=== PATIENT | female | born 1945 | race Caucasian/White ===

== ENCOUNTER 2021-03-04 15:08 | Outpatient (CLI) | payer MEDICARE, SELFPAY ==
--- NOTE | ~2021-03-04 | XR_ITS ---
EXAMINATION: XR knee LT min 4V EXAM DATE: 03/04/2021 15:43 INDICATION: Pain, LT knee Medial soft tissue mass, osteoarthritis. TECHNIQUE: Left knee frontal, crosstable lateral, orthogonal oblique projections for interpretation. Comparison is made to prior examination from 09/16/2016. FINDINGS: No evidence osteochondral defect or joint body in the left knee joint. There is mild to m oderate primary osteoarthritis. There are no acute fractures or dislocations identified. There is no subcutaneous gas. There is small joint effusion. Medial thigh surgical clips could be saphenous v ein harvest. IMPRESSION: Mild to moderate left knee osteoarthritis. Small joint effusion. Reviewed, dictated and finalized at location A.
== END 2021-03-04 15:09 | disposition home or self-care (01) ==
LOC: ANHIMG 15:15
PROVIDERS: PCP Family Medicine Adolescent Medicine; Visit Provider Family Medicine Adolescent Medicine
DX: M17.12 Unilateral primary osteoarthritis, left knee (principal); M25.462 Effusion, left knee
CPT/HCPCS: 73564

== ENCOUNTER 2021-04-10 12:49 | Outpatient (CLI) | payer MEDICARE, SELFPAY ==
--- NOTE | ~2021-04-10 | MM_ITS ---
EXAMINATION: MM screening [facility] BI w lupilol HISTORY: Screening mammogram TECHNIQUE: Craniocaudal and mediolateral oblique 3-D tomosynthesis images were obtained and synthetic 2-D images were generated. CAD analysis was submitted and interpreted. COMPARISON: 12/21/2018, 09/17/2016, 07/04/2014 BREAST PARENCHYMAL COMPOSITION: There are scattered areas of fibroglandular density. FINDINGS: There is no evidence of suspicious mass, calcification, or architectural distortion to sugg est malignancy in either breast. There has been no suspicious interval change. IMPRESSION: 1. No mammographic evidence of malignancy. 2. Recommend routine screening mammography in one year. BI-RADS Category 1: Negative Reviewed, dictated and finalized at location A.
--- NOTE | ~2021-04-10 | DEXA_ITS ---
Bone Density Report Name: Vamsi Alonzo Age: 75 Sex: Female Ethnicity: White Date of : 1945 Indication: postmenopausal osteoporosis; monitoring treatment; parental hip fracture; height loss; prior fracture; Referring Provider: Juan David Acosta Study: Bone densitometry was performed. Exam Date: April 10, 2021 Accession number: [id number] Bone Density: Region BMD T-score Z-score Classification AP Spine (L2, L3) 0.833 -2.0 0.3 Osteopenia Femoral Neck (Left) 0.618 -2.1 -0.1 Osteopenia Total Hip (Left) 0.586 -2.9 -1.2 Osteoporosis Total Hip Bilateral Avg 0.578 -3.0 -1.3 Osteoporosis Femoral Neck (Right) 0.605 -2.2 -0.2 Osteopenia Total Hip (Right) 0.569 -3.1 -1.3 Osteoporosis World Health Organization criteria for BMD impression classify patients as: Normal (T-score at or above -1.0), Osteopenia (T-score between -1.0 and -2.5), or Osteoporosis (T-score at or below -2.5). 10-year Fracture Risk: FRAX not reported because: Some T-score for Spine Total or Hip Total or Femoral Neck at or below -2.5 Treated for osteoporosis Previous Exams: Region Exam Age BMD T-score BMD Change BMD Change Date g/cm2 vs Baseline vs Previous AP Spine(L2, L3) 04/10/2021 75 0.833 -2.0 -0.039(-4.5%)# 0.088(11.8%)* 09/17/2016 71 0.745 -2.8 -0.127(-14.5%) -0.086(-10.4%) 11/18/2012 67 0.832 -2.1 -0.040(-4.6%)# 0.041(5.1%)# 08/06/2010 65 0.791 -2.4 -0.081(-9.3%)* -0.039(-4.7%)* 07/13/2007 62 0.830 -2.1 -0.042(-4.9%)* -0.042(-4.9%)* 03/25/2005 59 0.872 -1.7 Total Hip(Left) 04/10/2021 75 0.586 -2.9 -0.141(-19.4%) -0.006(-1.1%) 09/17/2016 71 0.593 -2.9 -0.134(-18.5%) -0.071(-10.7%) 11/18/2012 67 0.664 -2.3 -0.063(-8.7%)# -0.097(-12.8%) 08/06/2010 65 0.761 -1.5 0.034(4.7%)* 0.043(6.0%)* 07/13/2007 62 0.718 -1.8 -0.009(-1.2%) -0.009(-1.2%) 03/25/2005 59 0.727 -1.8 Total Hip(Right) 04/10/2021 75 0.569 -3.1 -0.152(-21.1%) -0.039(-6.5%)* 09/17/2016 71 0.609 -2.7 -0.113(-15.7%) -0.042(-6.4%)# 11/18/2012 67 0.650 -2.4 -0.071(-9.9%)# -0.035(-5.1%)# 08/06/2010 65 0.685 -2.1 -0.037(-5.1%)* -0.034(-4.7%)* 07/13/2007 62 0.719 -1.8 -0.003(-0.4%) -0.003(-0.4%) 03/25/2005 59 0.721 -1.8 *Denotes significance at 95% confidence level, LSC for AP Spine = 0.022 g/cm2, LSC for Total Hip = 0.027 g/cm2 Clinical Information Provided by Patient: Has had a low trauma fracture Parent has had a hip fracture Smokes Is being treated for
== END 2021-04-10 12:50 | disposition home or self-care (01) ==
LOC: ANHIMG 12:55
PROVIDERS: PCP Family Medicine Adolescent Medicine; Visit Provider Family Medicine Adolescent Medicine
DX: Z12.31 Encounter for screening mammogram for malignant neoplasm of breast (principal); Z78.0 Asymptomatic menopausal state; M85.88 Other specified disorders of bone density and structure, other site; M85.852 Other specified disorders of bone density and structure, left thigh; M85.851 Other specified disorders of bone density and structure, right thigh; M81.0 Age-related osteoporosis without current pathological fracture
CPT/HCPCS: 77063; 77067; 77080

== ENCOUNTER 2022-10-28 00:53 | Day surgery (SDC) | payer MEDICARE, SELFPAY ==
[2022-10-14 13:49] VITALS: BMI 21.4
[2022-10-28 08:10] VITALS: BP 143/53; PULSE 55; RESP 16; TEMP 35.6; O2SAT 100; BMI 21.4
[2022-10-28] MEDS: LACTATED RINGERS 1,000 ML 150 ML IV CONT (08:38)
--- NOTE | 2022-10-28 08:50 | WPDANESEPPF ---
Anes - Initial Pre Proc Eval Procedure: Operation Date: 10/28/22 09:30 Proposed Procedures p Esophagogastroduodenoscopy - Manuel Wen MD Date/Time: 10/28/22 08:50 Surgeon: Manuel Wen MD Pre Op Diagnosis: mustafa's esophagus Patient Data Age: 77 Gender: F Height: 1.57 m Weight: 53.3 kg Last Vital Signs Temp 96.1 F L 10/28/22 08:10 Pulse 55 L 10/28/22 08:10 Resp 16 10/28/22 08:10 BP 143/53 H 10/28/22 08:10 Pulse Ox 100 10/28/22 08:10 O2 Del Method Room Air 10/28/22 08:10 Allergies Allergy/AdvReac Type Severity Reaction Status Date / Time tetanus toxoid, adsorbed Allergy Intermediate SWELLING Verified 10/28/22 08:10 AND REDNESS AT SITE erythromycin base Allergy Unknown Unknown Verified 10/28/22 08:10 Sulfa (Sulfonamide Allergy Unknown Unknown Verified 10/28/22 08:10 Antibiotics) tetanus immune globulin Allergy Unknown Swelling Verified 10/28/22 08:10 Home Medications Medication Instructions Recorded Confirmed Type alirocumab 75 mg/mL subcutaneous 75 mg subcut Q14D 05/08/22 10/28/22 History pen injector (Praluent Pen) amlodipine 10 mg tablet 10 mg PO DAILY 05/08/22 10/28/22 History aspirin 81 mg tablet,delayed 81 mg PO DAILY 05/08/22 10/28/22 History release (Adult Aspirin Regimen) atorvastatin 80 mg tablet 80 mg PO DAILY 05/08/22 10/28/22 History cetirizine 10 mg capsule (Allergy 10 mg PO DAILY PRN Allergy Symptoms 05/08/22 10/28/22 History Relief (cetirizine)) cholecalciferol (vitamin D3) 50 50 mcg PO DAILY 05/08/22 10/28/22 History mcg (2,000 unit) capsule ipratropium bromide 42 mcg (0.06 2 spray intranasal TID PRN allergy 05/08/22 10/28/22 Rx %) nasal spray symptoms #15 mL citalopram 40 mg tablet See Rx Instructions .Route 07/24/22 10/28/22 Rx .COMPLEX #90 tabs pantoprazole 40 mg tablet,delayed 40 mg PO DAILY #90 tabs 07/24/22 10/28/22 Rx release alirocumab 75 mg/mL subcutaneous 75 mg subcut Q14D 08/11/22 10/28/22 History pen injector (Praluent Pen) celecoxib 200 mg capsule (Celebrex) 200 mg PO DAILY 10/14/22 10/28/22 History tramadol 50 mg tablet See Rx Instructions PO Q6H PRN 10/16/22 10/28/22 Rx pain #40 tabs Patient hx anesthesia problems: none Family hx anesthesia problems: none Results Review: All pre-operative results and documents have been reviewed as part of the pre-operative evaluation. [facility]LY [facility] Past Medical History Medical History Colon cancer screening Geographic tongue GERD with esophagitis Menopause Pain in mouth Slipped Deandra fundoplication Surgical History Surgical History History of repair of aneurysm of abdominal aorta using endovascular stent graft (12/2021) Hx of CABG (1995) Family History Family History Mother Family history of osteoporosis Sibling Family history of osteoporosis Heart disease Sibling Alcoholism Cancer Heart disease Other Family history of elevated blood lipids Social History Social History (Updated 08/11/22 @ 10:25 by Pauly Fried CMA) Smoking packs per day: 1 Smoking cigarettes per day: 20.0 Smoking status: Current every day smoker Tobacco type: cigarettes Second hand tobacco smoke exposure: No Alcohol intake: unknown Substance use: never Substance use type: does not use Lack of Transportation: No Lack of Food: Never True Current Housing: I Have Housing Concerned About Future Housing: No Difficulty Paying Gas/Electric Bills: No Difficulty Paying for Meds: No Currently Unemployed: No Education: Bachelor's Degree Difficulty w/ Childcare or Family Care: No Living arrangements: with family Gender identity (if verbalized by the patient): Female Spiritual care concerns: No Anes - Eval Final PreProcedure Day of Procedure
--- NOTE | 2022-10-28 08:56 | PM.HPGS ---
History of Present Illness History of Present Illness Consent: Risks, benefits, and alternatives have been discussed and questions answered. Patient agrees to proceed with procedure. Chief complaint: mustafa's esophagus Narrative: Vamsi Alonzo is a 77 year old female Presents for surveillance EGD today. Patient has a long history of Mustafa's esophagus. Patient also has a history hiatal hernia in GE reflux. She underwent fundoplication several years ago. She denies any heartburn or significant reflux symptoms. She does avoid spicy foods because of geographic tongue and occasional canker sores. Patient presents today for EGD because of surveillance with Mustafa's esophagus history. Previous EGD in 2019. History noncontributory. Review of Systems Review of Systems: Review of systems noncontributory. [facility] Past Medical History Medical History Colon cancer screening Geographic tongue GERD with esophagitis Menopause Pain in mouth Slipped Deandra fundoplication Surgical History Surgical History History of repair of aneurysm of abdominal aorta using endovascular stent graft (12/2021) Hx of CABG (1995) Family History Family History Mother Family history of osteoporosis Sibling Family history of osteoporosis Heart disease Sibling Alcoholism Cancer Heart disease Other Family history of elevated blood lipids Social History Social History (Updated 08/11/22 @ 10:25 by Pauly Fried CMA) Smoking packs per day: 1 Smoking cigarettes per day: 20.0 Smoking status: Current every day smoker Tobacco type: cigarettes Second hand tobacco smoke exposure: No Alcohol intake: unknown Substance use: never Substance use type: does not use Lack of Transportation: No Lack of Food: Never True Current Housing: I Have Housing Concerned About Future Housing: No Difficulty Paying Gas/Electric Bills: No Difficulty Paying for Meds: No Currently Unemployed: No Education: Bachelor's Degree Difficulty w/ Childcare or Family Care: No Living arrangements: with family Gender identity (if verbalized by the patient): Female Spiritual care concerns: No Meds Home Medications and Allergies Home Medications Medication Instructions Recorded Confirmed Type alirocumab 75 mg/mL subcutaneous 75 mg subcut Q14D 05/08/22 10/28/22 History pen injector (Praluent Pen) amlodipine 10 mg tablet 10 mg PO DAILY 05/08/22 10/28/22 History aspirin 81 mg tablet,delayed 81 mg PO DAILY 05/08/22 10/28/22 History release (Adult Aspirin Regimen) atorvastatin 80 mg tablet 80 mg PO DAILY 05/08/22 10/28/22 History cetirizine 10 mg capsule (Allergy 10 mg PO DAILY PRN Allergy Symptoms 05/08/22 10/28/22 History Relief (cetirizine)) cholecalciferol (vitamin D3) 50 50 mcg PO DAILY 05/08/22 10/28/22 History mcg (2,000 unit) capsule ipratropium bromide 42 mcg (0.06 2 spray intranasal TID PRN allergy 05/08/22 10/28/22 Rx %) nasal spray symptoms #15 mL citalopram 40 mg tablet See Rx Instructions .Route 07/24/22 10/28/22 Rx .COMPLEX #90 tabs pantoprazole 40 mg tablet,delayed 40 mg PO DAILY #90 tabs 07/24/22 10/28/22 Rx release alirocumab 75 mg/mL subcutaneous 75 mg subcut Q14D 08/11/22 10/28/22 History pen injector (Praluent Pen) celecoxib 200 mg capsule (Celebrex) 200 mg PO DAILY 10/14/22 10/28/22 History tramadol 50 mg tablet See Rx Instructions PO Q6H PRN 10/16/22 10/28/22 Rx pain #40 tabs Allergies Allergy/AdvReac Type Severity Reaction Status Date / Time tetanus toxoid, adsorbed Allergy Intermediate SWELLING Verified 10/28/22 08:10 AND REDNESS AT SITE erythromycin base Allergy Unknown Unknown Verified 10/28/22 08:10 Sulfa (Sulfonamide Allergy Unknown Unknown Verified 10/28/22 08:10 Ant
[2022-10-28 09:40] VITALS: BP 114/55; PULSE 65; RESP 20; O2SAT 98
[2022-10-28 09:50] VITALS: BP 109/58; PULSE 53; RESP 18; O2SAT 99
[2022-10-28 10:00] VITALS: BP 138/59; PULSE 52; RESP 14; O2SAT 98
== END 2022-10-28 10:17 | disposition home or self-care (01) ==
PROVIDERS: PCP Family Medicine Adolescent Medicine; Visit Provider Internal Medicine Gastroenterology
PROC: 0DJ08ZZ Inspection of Upper Intestinal Tract, Via Natural or Artificial Opening Endoscopic (ICD-10-PCS; CPT 43235; principal; 2022-10-28 09:30)
DX: K22.70 Barrett's esophagus without dysplasia (principal); K21.9 Gastro-esophageal reflux disease without esophagitis; Z95.1 Presence of aortocoronary bypass graft; F17.210 Nicotine dependence, cigarettes, uncomplicated; Z79.82 Long term (current) use of aspirin
CPT/HCPCS: 43239; 88305; J2704; J7120

== ENCOUNTER 2023-01-20 12:01 | Outpatient (CLI) | payer MEDICARE, SELFPAY ==
--- NOTE | ~2023-01-20 | MM_ITS ---
. EXAMINATION: MM diagnostic shannon BI w lupillo HISTORY: Left breast lump, left breast CAD TECHNIQUE: Bilateral full field and left spot ML, MLO and CC 3-D tomosynthesis images were performed and synthetic 2-D images were generated. CAD analysis was submitted and interpreted. COMPARISON: 04/10/2021, 12/21/2018, 09/17/2016bilateral screening mammogram examinations BREAST PARENCHYMAL COMPOSITION: The breasts are heterogeneously dense, which may obscure small masses . FINDINGS: Left breast: Suggestion of an approximately 11 mm mass in the lateral left subareolar area, with subt le focal overlying mild skin thickening. Ultrasound correlation is recommended. Right breast: No suspicious mass, architectural distortion, microcalcifications, skin thickening or r etraction or significant new or developing density is detected. IMPRESSION: 1. Incomplete examination 2. Left breast ultrasound examination is recommended BI-RADS Category 0: Incomplete: Needs additional imaging evaluation. Reviewed, dictated and finalized at location A.
--- NOTE | ~2023-01-20 | US_ITS ---
US breast LT limited DATE: 01/20/2023 13:25 INDICATION: Left breast lump, skin scan TECHNIQUE: Real-time imaging of left breast including upper outer and lower-outer quadrants and subar eolar area COMPARISON: 01/20/2023 diagnostic bilateral mammogram FINDINGS: There is an oval circumscribed 5 x 15 x 15.7 mm sonolucency with through transmission posterior enhan cement in the left breast subareolar area. In the lateral subareolar area of the left breast beneath a skin lesion is an irregular hypoechoic ap proximately 1 cm wide up to 12 mm deep hypoechoic mass. There appears to be overlying skin thickening at this lesion. A superficial breast cancer with overlying skin thickening is suggested. Biopsy is r ecommended. No other suspicious mass or shadowing of the upper outer or lower outer quadrants of the left breast is noted. IMPRESSION: BI-RADS Category 4: Suspicious abnormality; biopsy should be considered for lateral subar eolar approximate 10 x 12 mm hypoechoic mass with overlying skin thickening, suspicious for a superfi cial breast cancer invading the overlying skin I discussed the finding of an abnormality at the area of the skin scattered with the patient, indicat ing that this was suspicious for possible cancer and recommended that she follow-up with her breast s urgeon for biopsy of the area. Reviewed, dictated and finalized at Location A. Reviewed, dictated and finalized at location A. IMPRESSION: BI-RADS Category 4: Suspicious abnormality; biopsy should be consid ered for lateral subareolar approximate 10 x 12 mm hypoechoic mass with overlyi ng skin thickening, suspicious for a superficial breast cancer invading the ove rlying skin I discussed the finding of an abnormality at the area of the skin scattered wit h the patient, indicating that this was suspicious for possible cancer and janee mmended that she follow-up with her breast surgeon for biopsy of the area.
== END 2023-01-20 12:02 | disposition home or self-care (01) ==
PROVIDERS: PCP Family Medicine Adolescent Medicine; Visit Provider Nurse Practitioner Family
DX: N63.20 Unspecified lump in the left breast, unspecified quadrant (principal); L98.499 Non-pressure chronic ulcer of skin of other sites with unspecified severity; R92.8 Other abnormal and inconclusive findings on diagnostic imaging of breast
CPT/HCPCS: 76642; 77062; 77066; G0279

== ENCOUNTER 2023-02-12 12:52 | Outpatient (CLI) | payer MEDICARE, SELFPAY ==
--- NOTE | ~2023-02-12 | US_ITS ---
US breast LT limited DATE: 02/12/2023 13:43 INDICATION: Requested ultrasound-guided biopsy of superficial lateral subareolar left breast mass The lesion of interest is small and very superficial, with skin involvement. The lesion is not readily amenable to ultrasound-guided biopsy because of the very superficial positi on. Consider surgical or dermatologic biopsy. Reviewed, dictated and finalized at Location A. Reviewed, dictated and finalized at location A.
== END 2023-02-12 12:53 | disposition home or self-care (01) ==
LOC: ANHIMG 12:55
PROVIDERS: PCP Family Medicine Adolescent Medicine; Visit Provider Surgery
DX: N63.20 Unspecified lump in the left breast, unspecified quadrant (principal); N63.42 Unspecified lump in left breast, subareolar
CPT/HCPCS: 76642

== ENCOUNTER 2023-02-20 15:05 | Outpatient (CLI) | payer MEDICARE, SELFPAY ==
--- NOTE | ~2023-02-20 | US_ITS ---
EXAMINATION: US carotid duplex BI DATE: 02/20/2023 15:41 INDICATION: Carotid bruit TECHNIQUE: Grayscale, color Doppler, and pulsed Doppler images of the cervical carotid arteries were obtained. The degree of vessel stenosis is placed in one of the following categories: normal, <50%, 5 0-69%, >=70% but less than near-occlusion, near-occlusion, or total occlusion. Note that percent sten osis relative to normal distal artery lumen diameter is indirectly measured from velocity measurement s as described by Randall, et al. Radiology 2003; 229:340-346. COMPARISON: None. FINDINGS: RIGHT: The right common carotid artery (CCA) peak systolic velocity (PSV) is 94 cm/s. The right internal car otid artery (ICA) PSV is 97 cm/s. The right ICA end-diastolic velocity (EDV) is 21 cm/s. The right IC A/CCA PSV ratio is 1.0. Grayscale and color Doppler images yield an estimate of <50% diameter reducti on from plaque in the ICA. The external carotid artery (ECA) PSV is 145 cm/s. There is antegrade flow in the right vertebral artery. LEFT: The left CCA PSV is 83 cm/s. The left ICA PSV is 96 cm/s. The left ICA EDV is 20 cm/s. The left ICA/C CA PSV ratio is 1.2. Grayscale and color Doppler images yield an estimate of <50% diameter reduction from plaque in the ICA. The ECA PSV is 116 cm/s. There is antegrade flow in the left vertebral artery . IMPRESSION: 1. <50% stenosis in the right internal carotid artery. 2. <50% stenosis in the left internal carotid artery. Reviewed, dictated and finalized at location A.
== END 2023-02-20 15:06 | disposition home or self-care (01) ==
LOC: ANHIMG 15:10
PROVIDERS: PCP Family Medicine Adolescent Medicine; Visit Provider Internal Medicine Cardiovascular Disease
DX: R09.89 Other specified symptoms and signs involving the circulatory and respiratory systems (principal); I65.23 Occlusion and stenosis of bilateral carotid arteries
CPT/HCPCS: 93880

== ENCOUNTER → 2023-03-05 10:59 | Outpatient (REF) | payer MEDICARE, SELFPAY | LOC: ANHLAB 10:59 | PROVIDERS: PCP Family Medicine Adolescent Medicine; Visit Provider Physician Assistant Surgical | DX: L98.499 Non-pressure chronic ulcer of skin of other sites with unspecified severity (principal); N63.0 Unspecified lump in unspecified breast; N63.42 Unspecified lump in left breast, subareolar | CPT/HCPCS: 88305 ==

== ENCOUNTER 2023-07-14 12:45 | Outpatient (CLI) | payer MEDICARE, SELFPAY ==
--- NOTE | ~2023-07-14 | MMUS_ITS ---
EXAMINATION: MM diagnostic shannon LT w lupillo, US breast LT complete HISTORY: Short-term follow-up of superficial lateral left subareolar breast mass TECHNIQUE: Full field and spot 3-D tomosynthesis images of the left breast were performed and synthet ic 2-D images were generated. CAD analysis was submitted and interpreted. High resolution complete le ft breast ultrasound including all 4 quadrants and subareolar area was performed. COMPARISON: 02/12/2023 and limited left breast ultrasound 01/20/2023 diagnostic bilateral mammogram and left breast ultrasound 04/10/2021, 12/21/2018, 09/17/2016, 07/04/2014 bilateral screening mammogram examinations BREAST PARENCHYMAL COMPOSITION: There are scattered areas of fibroglandular density. FINDINGS: MAMMOGRAPHIC FINDINGS: Recent punch biopsy of the left breast was reported negative for malignancy The previously reported lateral subareolar opacity of 01/20/2023 appears relatively stable since 2022. No interval soft tissue mass or architectural distortion or significant new or developing density is detected. No malignant calcification, skin thickening or retraction is evident. ULTRASOUND: There is a 13 x 5 x 18 mm circumscribed sonolucency with through transmission posterior enhancement i n the subareolar area consistent with simple cyst. No suspicious mass or shadowing is detected. The area of skin thickening and underlying hypoechoic ma ss noted in the superior subareolar area on 01/20/2023 ultrasound examination is no longer evident. IMPRESSION: 1. Benign subareolar left breast cyst; no suspicious mass or shadowing is detected 2. Routine annual mammographic screening is recommended BI-RADS Category 2: Benign finding(s). Reviewed, dictated and finalized at location A. UITMENT CONSULTANT IMPRESSION: 1. Benign subareolar left breast cyst; no suspicious mass or shadowing is detec sharri 2. Routine annual mammographic screening is recommended BI-RADS Category 2: Benign finding(s).
== END 2023-07-14 12:46 | disposition home or self-care (01) ==
PROVIDERS: PCP Family Medicine Adolescent Medicine; Visit Provider Physician Assistant Surgical
DX: N63.42 Unspecified lump in left breast, subareolar (principal)
CPT/HCPCS: 76641; 77061; 77065; G0279

== ENCOUNTER 2023-11-24 15:09 | Outpatient (CLI) | payer MEDICARE, SELFPAY ==
--- NOTE | ~2023-11-24 | XR_ITS ---
XR lumbar spine 2-3V DATE: 11/24/2023 15:37 INDICATION: Back pain TECHNIQUE: AP, lateral, coned lateral lumbosacral views COMPARISON: None FINDINGS: Osteopenia. Moderate rotatory levoscoliosis of the lumbar spine. There is severe degenerative disc disease at T10-11, T11-12, T12-L1, with associated approximately 4 mm retrolisthesis at T12-L1. There is mild to moderate degenerative disc disease of the lumbar and lumbosacral area. No fracture or bone destruction is evident. There is degenerative changes apophyseal joints with associated minimal grade 1 anterolisthesis at L4 -5. Aorta biiliac endovascular stent. Surgical clips overlie the lower mid chest. Prominent amount of fecal material throughout the colon. IMPRESSION: Rotatory levoscoliosis and multilevel degenerative disc disease of the lumbar spine Severe degenerative disease in the lower thoracic spine and T12-L1, with approximately 4 mm retrolist hesis at T12-L1 Grade 1 anterolisthesis at L4-5 due to degenerative change at the apophyseal joints Reviewed, dictated and finalized at location B. IMPRESSION: Rotatory levoscoliosis and multilevel degenerative disc disease of the lumbar spine Severe degenerative disease in the lower thoracic spine and T12-L1, with approx imately 4 mm retrolisthesis at T12-L1 Grade 1 anterolisthesis at L4-5 due to degenerative change at the apophyseal talya ints
== END 2023-11-24 15:10 ==
PROVIDERS: PCP Family Medicine Adolescent Medicine; Visit Provider Family Medicine Adolescent Medicine
DX: M41.86 Other forms of scoliosis, lumbar region (principal); M51.36 Other intervertebral disc degeneration, lumbar region; M51.34 Other intervertebral disc degeneration, thoracic region; M51.35 Other intervertebral disc degeneration, thoracolumbar region; M43.15 Spondylolisthesis, thoracolumbar region
CPT/HCPCS: 72100

== ENCOUNTER 2024-01-29 13:15 | Outpatient (CLI) | payer MEDICARE, SELFPAY ==
--- NOTE | ~2024-01-29 | MMUS_ITS ---
EXAMINATION: MM diagnostic shannon BI w lupillo, US breast LT limited HISTORY: Status post prior punch biopsy of left breast subareolar mass TECHNIQUE: Additional 3-D tomosynthesis images of the breasts were performed and synthetic 2-D images were generated. CAD analysis was submitted and interpreted. High resolution Limited left breast ultr asound was performed. COMPARISON: Comparison to multiple prior studies sequentially, with oldest reviewed study dated 06/24. BREAST PARENCHYMAL COMPOSITION: Not dense: There are scattered areas of fibroglandular density. FINDINGS: MAMMOGRAPHIC FINDINGS: There are no suspicious masses, calcifications or architectural distortion in either breast to sugges t malignancy. ULTRASOUND: Limited left breast ultrasound: There is an elongated cyst of the left breast in the subareolar locat ion measuring 1.8 x 1.1 x 0.3 cm. No suspicious masses to suggest malignancy. IMPRESSION: 1. No evidence for malignancy in either breast. Benign left breast cysts. 2. Routine yearly screening mammogram and regular clinical breast examination are recommended. BI-RADS Category 2: Benign finding(s). Reviewed, dictated and finalized at location B. IMPRESSION: 1. No evidence for malignancy in either breast. Benign left breast cysts. 2. Routine yearly screening mammogram and regular clinical breast examination a re recommended. BI-RADS Category 2: Benign finding(s).
== END 2024-01-29 13:16 | disposition home or self-care (01) ==
PROVIDERS: PCP Family Medicine Adolescent Medicine; Visit Provider Physician Assistant Surgical
DX: N63.42 Unspecified lump in left breast, subareolar (principal); L98.499 Non-pressure chronic ulcer of skin of other sites with unspecified severity
CPT/HCPCS: 76642; 77062; 77066; G0279

== ENCOUNTER 2024-01-29 16:08 | Outpatient (CLI) | payer MEDICARE, SELFPAY ==
--- NOTE | ~2024-01-29 | XR_ITS ---
XR knee LT 3V Ordering provider: Juan David Acosta MD History: . M25.561 - Pain in right knee . Comparison: March 04, 2021 FINDINGS: BONES: No acute fracture or dislocation. JOINT SPACES: Narrowing of the lateral compartment of the knee. Calcification of the medial meniscus. SOFT TISSUES: Normal. IMPRESSION: No acute osseous abnormality left knee. Reviewed, dictated and finalized at location A.
--- NOTE | ~2024-01-29 | XR_ITS ---
XR knee RT 3V Ordering provider: Juan David Acosta MD History: . M25.561 - Pain in right knee . Comparison: September 16, 2016 FINDINGS: BONES: No acute fracture or dislocation. JOINT SPACES: Narrowing of the lateral compartment. Osteoarthritic changes of the patellofemoral join t. Calcification of the medial and lateral menisci. SOFT TISSUES: Normal. IMPRESSION: No acute osseous abnormality right knee. Reviewed, dictated and finalized at location A.
== END 2024-01-29 16:09 ==
LOC: MICIMG 16:09
PROVIDERS: PCP Orthopaedic Surgery; Visit Provider Family Medicine Adolescent Medicine
DX: M25.561 Pain in right knee (principal); M25.562 Pain in left knee
CPT/HCPCS: 73562

== ENCOUNTER 2024-06-01 11:11 | Outpatient (CLI) | payer MEDICARE, SELFPAY ==
--- NOTE | ~2024-06-01 | XR_ITS ---
Left Knee Technique: AP, lateral, and sunrise views were obtained. Clinical History: Pain Findings: No fracture or dislocation is seen. There is severe degenerative change of the lateral comp artment, lateral compartment narrowing and remodeling of the articular surface of the lateral tibial plateau. There is mild tricompartmental osteophyte formation.. Soft tissues are unremarkable. No join t effusion is seen. Impression: Severe degenerative change of the lateral compartment. Mild degenerative change of the medial and pat ellofemoral compartment. Reviewed, dictated and finalized at location M. Impression: Severe degenerative change of the lateral compartment. Mild degenerative change of the medial and patellofemoral compartment.
--- NOTE | ~2024-06-01 | XR_ITS ---
Right Knee Technique: AP, lateral, and sunrise views were obtained. Clinical History: Pain Findings: No fracture or dislocation is seen. There is moderate degenerative change of the lateral co mpartment. There is mild degenerative change of the medial compartment. There is moderate degenerativ e change of the patellofemoral compartment.. Soft tissues are unremarkable. No joint effusion is seen . Impression: Moderate degenerative change of the lateral and patellofemoral compartment. Mild degenerative change of the medial compartment. Reviewed, dictated and finalized at location M. Impression: Moderate degenerative change of the lateral and patellofemoral compartment. Mil d degenerative change of the medial compartment.
== END 2024-06-01 11:12 | disposition home or self-care (01) ==
LOC: GOSHIMG 11:12
PROVIDERS: PCP Family Medicine Adolescent Medicine; Visit Provider Orthopaedic Surgery
DX: M17.0 Bilateral primary osteoarthritis of knee (principal)
CPT/HCPCS: 73564

== ENCOUNTER → 2024-11-23 15:29 | Outpatient (CLI) | payer MEDICARE, SELFPAY ==
--- NOTE | ~2024-11-23 | XR_ITS ---
Right foot Technique: AP, oblique, and lateral views were obtained. Clinical History: Pain Findings: There is a fracture of the distal aspect of the fifth proximal phalanx of the great toe, so mewhat age indeterminate. Joint spaces are preserved without erosive or degenerative change. Soft tis sues are unremarkable. Impression: Mildly displaced, intra-articular fracture of the medial aspect of the distal portion of the proximal phalanx of the great toe, somewhat age indeterminate. Correlate for point tenderness. Reviewed, dictated and finalized at location M. Impression: Mildly displaced, intra-articular fracture of the medial aspect of the distal p ortion of the proximal phalanx of the great toe, somewhat age indeterminate. Co rrelate for point tenderness.
== END ==
LOC: EXPCRAD 15:32
PROVIDERS: PCP Family Medicine; Visit Provider Family Medicine
DX: S92.411A Displaced fracture of proximal phalanx of right great toe, initial encounter for closed fracture (principal)
CPT/HCPCS: 73630

== ENCOUNTER 2024-12-01 01:01 | Day surgery (SDC) | payer MEDICARE, SELFPAY ==
[2024-11-22 14:24] VITALS: BMI 20.5
--- OUTSIDE RECORDS SUMMARY | 2024-12-01 01:04 | XMS_ITS | Encounter Summary ---
Author Organization [facility] Address [address] [facility] [address] [place] [address] Care Team Providers Care Facility Administrator Name Role Phone Juan David Acosta MD Primary Care Prov ider Zion Lechuga MD Unavailable [phone] Juan David Ren MD Unavailable [phone] Encounter Details Date Type Department Care Team (Late st Contact Info) Description 12/03/2016 Orders Only [facility] ProviderAndres MD [address] [place] [id number] Social History Tobacco Use Types Packs/Day Years Used Date Smoking Tobacco: Former Cigarettes Q uit: 08/24/2012 Alcohol Use Standard Drinks/Week Comments No 0 (1 standard drink = 0.6 oz pur e alcohol) Comments Unknown Sex and Gender Information Value Date Recorded Sex Assigned at Not on file Legal 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 Historical Provider [facility] PATRICK FRAGOSO Final Result documented in this encounter Visit Diagnoses Not on filedocumented in this encounter Care Teams Facility Administrator Relationship Specialty Start Date End Date Juan David Acosta MD [address] [place] [address] PCP - General 11/21/16 Zion Lechuga MD [address] [place] [address] Consulting Physician Cardiology 01/01/22 Juan David Ren MD [address] [facility] [address] [address] Surgeon Vascular Surgery 02/27/22 documented as of this encounter
--- OUTSIDE RECORDS SUMMARY | 2024-12-01 01:04 | XMS_ITS | Clinical Summary ---
Author Organization [facility] Address [address] [place], [facility] [address] [place] [address] Phone Care Team Providers Care Syrup Mixer Helper Name Role Phone Juan David Acosta MD Primary Care Provider + Allergies Active Allergy Reactions Criticality Noted Date Comments Erythromycin Nausea 08/03/2015 Sulfa Antibiotics Nausea 07/30/2015 Tetanus-Diphtheria Toxoids Td Swelling 2014 Medications citalopram (CELEXA) 40 MG Tablet Take 40 mg by mouth daily. Active raloxifene (EVISTA) 60 MG Tablet Take 60 mg by mouth daily. Active lisinopril-hydro chlorothiazide (PRINZIDE, ZESTORETIC) 10-12.5 MG Tablet Take 1 Tab by mouth daily. Active aspirin EC 81 MG Tablet Delayed Response Take 81 mg by mouth daily. Active ezetimibe (ZETIA) 10 MG Tablet Take 10 mg by mouth daily. Active atorvastatin (LIPITOR) 80 MG Tablet Take 80 mg by mouth daily. Active Cetirizine HCl (ZYRTEC PO)Indications:1 0 mg Take 1 Tab by mouth daily. Indications : 10 mg Active acetaminophen (TYLENOL) 325 MG Tablet Take 325 mg by mouth every 4 hours as needed. Active pantoprazole (PROTONIX) 40 MG Tablet Delayed Response TAKE 1 TABLET BY MOUTH TWICE DAILY 180 Tab 3 08/07/2015 Active IPRATROPIUM BROMIDE NA by Nasal route. Active Active Problems Problem Noted Date Diagnosed Date Hoarseness, chronic 11/29/2015 Colon polyp, hyperplastic 11/29/2015 Diaphragmatic hernia without obstruction and without gangrene 11/29/2015 Chronic idiopathic constipation 11/29/2015 Esophageal dysmotility 11/29/2015 Hoyt's esophagus without dysplasia 11/29/2015 Gastroesophageal reflux disease without esophagi tis 11/29/2015 Family History Medical History Relation Name Comments Cancer Brother Heart Attack Brother High Cholesterol Brother Heart Disease Father High Cholesterol Father Heart Attack Sister High Cholesterol Sister Relation Name Status Comments Brother Father Mother Alive Sister Social History Tobacco Use Types Packs/Day Years Used Date Smoking Tobacco: Every Day Cigarettes 2 35 Smokeless Tobacco: Never Tobacco Cessation:Ready to Q uit: No; Counseling Given: Yes Alcohol Use Standard Drinks/Week Comments No 0 (1 standard drink = 0.6 oz pur e alcohol) Rare Comments No Sex and Gender Information Value Date Recorded Sex Assigned at Not on file Legal Sex Female 4:45 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 Gender Identity Not on file Sexual Orientation Not on file 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 on file Not on file Not on file Last Filed Vital Signs Vital Sign Reading Time Taken Comments Blood Pressure 138/86 11/30/2018 2:03 PM CDT Pulse 64 11/30/2018 2:03 PM CDT Temperature 36.9 C (98.4 F) 11/30/2018 2:03 PM CDT Respiratory Rate 16 11/30/2018 2:03 PM CDT Oxygen Saturation 98% 11/30/2018 2:03 PM CDT Inhaled Oxygen Concentration - - Weight 61.4 kg (135 lb 6.4 oz) 11/30/2018 2:03 P M CDT Height 158.8 cm (5' 2.5 ) 11/30/2018 2:03 PM CDT Body Mass Index 24.37 11/30/2018 2:03 PM CDT Plan of Treatment Health Maintenance Due Date Last Done Comments Hepatitis C Virus (HCV) Screening 1945 TdaP Immunization 1945 Pneumococcal Immunization (5 0+ years) (1 of 1 - PCV) 1997 Zoster Immunization (1 of 2) 1997 Respiratory Syncytial Virus (RSV) Immunization (Adult) (1 - 1-dose 75+ series) 2022 Influenza Immunization (#1) 2024 SARS-COV-2 Immunization ( season) 2024 08/08/2021, 11/12/2020, 10/11/2020 Colonoscopy High Risk Discontinued 06/27/2015 Colonoscopy Discontinued 06/27/2015 Colorectal Cancer Screening Discontinued Cologuard Discontinued Hepatitis B Immunization Aged Out No longer eligible based on patient's age to complete this topic Immunochemical Fecal Occult Blood Discontinued Meningococcal Immunization (ACWY) Aged Out No longer eligible based on patient's age to complete this topic Rotavirus Immunization Aged Out No lo nger eligible based on patient's age to complete this topic Procedures Procedure Name Priority Date/Time Associated Diagnosis Comments COLONOSCOPY Routine 06/27/2015 from Last 3 Months or Most Recently Relevant to Health Maintenance Results * COLONOSCOPY (06/27/2015) Juan David Acosta MD PROCEDURE/MINOR SURGICAL ORDERABLES Final Result from Last 3 Months or Most Recently Relevant to Health Maintenance Care Teams Syrup Mixer Helper Relationship Specialty Start Date End Date Juan David Acosta MD [address] [place] [address] PCP - General Family Medicine 08/03/15
--- OUTSIDE RECORDS SUMMARY | 2024-12-01 01:04 | XMS_ITS | Referral Summary ---
Author Organization [facility] [address] [facility] [address] [place] [address] Care Team Providers Care Hospice Music Therapy Name Role Phone Juan David Acosta MD Primary Care Prov ider Zion Lechuga MD Unavailable [phone] Juan David Ren MD Unavailable [phone] Encounters Date Type Department Care Team Description 09/19/2024 Telephone [facility] Cardiology [address] [place] [address] Bo Brambila MD from Last 3 Months Allergies Active Allergy Reactions Criticality Noted Date Comments Bupivacaine-Lidocaine Other (See comments) Low 01/01/2022 Caused EKG changes, sent patient to emergency room, per patient cardiology stated everything was normal Doxycycline Itching Low Erythromycin Nausea only Low 07/27/2017 Sulfa Nausea only Low Sulfa (Sulfonamide Antibiotics) Nausea only Low Tetanus Vaccines And Toxoid Swelling,Edema Medium Medications citalopram (CeleXA) 40 mg tablet take 1 tablet by oral route every day 0 0 3 Active aspirin (ASPIRIN LOW DOSE) 81 mg tablet take 1 tablet by oral route every day 0 0 3 Active b complex vitamins capsule Take 1 capsule by mouth daily Active cholecalciferol (VITAMIN D-3) 2,000 unit capsule Take 1 capsule (2,000 Units total) by mouth daily Active pantoprazole DR (PROTONIX) 40 mg EC tablet Take 1 tablet (40 mg total) by mouth daily 9 Active acetaminophen (TYLENOL) 500 mg tablet Take 1 tablet (500 mg total) by mouth every 6 (six) hours as needed for pain Active celecoxib (CeleBREX) 200 mg capsule Take 1 capsule (200 mg total) by mouth daily 9 Active cetirizine (ZyrTEC) 10 mg tablet Take 1 tablet (10 mg total) by mouth as needed Allergy Relief Active L. gasseri-B. bifidum-B longum 1.5 billion cell capsule Take 1 tablet by mouth daily [facility] Active traMADoL (ULTRAM) 50 mg tablet Take 1 tablet (50 mg total) by mouth every 6 (six) hours as needed 1 Active gfiruqejc-GQ-jq etamin-guaifen [id number] mg tablet Take 1 tablet by mouth as needed Active docusate sodium (COLACE) 100 mg capsuleIndicati ons:constipatio n Take 1 capsule (100 mg total) by mouth as needed for constipation Active ipratropium (ATROVENT) 42 mcg (0.06 %) nasal spray Administer 2 sprays into each nostril 4 (four) times a day Active acidophilus-pec tin, citrus 100 million cell-10 mg capsule Take by mouth Activ e atorvastatin (LIPITOR) 80 mg tablet TAKE 1 TABLET BY MOUTH EVERY DAY 90 tablet 1 4 Active amLODIPine (NORVASC) 10 mg tablet TAKE 1 TABLET BY MOUTH EVERY DAY 90 tablet 3 4 Active ezetimibe (ZETIA) 10 mg tablet Take 1 tablet (10 mg total) by mouth daily 90 tablet 3 4 Active nitroglycerin (NITROSTAT) 0.4 mg SL tabletIndicatio ns:Coronary artery disease involving [place] coronary artery of [place] heart without angina pectoris PLACE 1 TABLET (0.4 MG TOTAL) UNDER THE TONGUE EVERY 5 (FIVE) MINUTES NEEDED FOR CHEST PAIN UP TO 3 DOSES, THEN CALL 911 75 tablet 1 5 Active Active Problems Problem Noted Date Diagnosed Date Bilateral carotid bruits 02/17/2023 AAA (abdominal aortic aneurysm) without rupture 01/06/2022 Assessment & Plan (03/24/2024 8:27 AM CDT): AAA status post EVAR. Stent graft in good position no endoleak. One year duplex. Mixed hyperlipidemia 12/17/2021 Assessment & Plan (03/24/2024 8:27 AM CDT): Hyperlipidemia chronic controlled. Continue current medical management with Lipitor. Assessment & Plan (04/01/2023 12:48 PM CDT): Hyperlipidemia chronic and controlled. Continue Lipitor. Abnormal stress test 12/17/2021 Myalgia 03/13/2020 Coronary artery disease invo lving p[place] coronary artery of [place] heart without angina pectoris 09/05/2019 Nonrheumatic aortic valve stenosis 12/07/2018 AAA (abdominal aortic aneurysm) 12/07/2018 Assessment & Plan (04/01/2023 12:48 PM CDT): Status post P EVAR. Patient doing well no endoleak sac size regressed. Continue ongoing yearly duplex surveillance. Assessment & Plan (03/07/2022 1:55 PM CDT): Status post PEVAR performed 01/06/2022 for rapid growth. Patient denies any current complaints. Groin sites have healed. She denies any issues with ambulation for pain to the lower extremities or to the abdomen flank or back. Patient follow-up in 6 months with a CTA of the abdomen and pelvis. Assessment & Plan (12/06/2021 1:09 PM CDT): CT scan shows significant growth over the last year. Aneurysm has grown over 8 mm now measuring 4.3 cm. Given the patient's smoking history and rapid growth I am recommending endovascular aneurysm repair. She has a good stent graft candidate. The procedure its indications and all risks have been explained. She understands and agrees to proceed. Assessment & Plan (10/31/2020 8:54 AM NET PROGRAMMER): Stable 3.5 cm fusiform infrarenal abdominal aortic aneurysm. Continue 6 month duplex surveillance. No indication for further workup or intervention at this time. Left wrist fracture 11/30/2017 History of fundoplication 11/22/2016 Status post abdominal aortic aneurysm (AAA) repa ir 11/22/2016 Assessment & Plan (09/12/2022 2:58 PM NET PROGRAMMER): Patient is following up today for her annual routine follow-up regarding infrarenal abdominal aortic aneurysm status post repair in 01/06/2022. She denies any abdominal flank or back pain or claudication pain. On CTA her aneurysm is measuring smaller at 3 x 3.6 cm compared to previous CTA which measured at 3.7 x 4.2 cm 02/26/2022. Plan: Return in 6 months for routine surveillance with CTA of the abdomen and pelvis. Plan: Return in 1 year with an aortic duplex. Epigastric pain 12/07/2015 Esophageal dysmotility 12/07/2015 Hoyt's esophagus 12/07/2015 Gastroesophageal reflux disease without esophagi tis 12/07/2015 Chronic idiopathic constipation 11/29/2015 Colon polyp, hyperplastic 11/29/2015 Diaphragmatic hernia without obstruction and without gangrene 11/29/2015 Hoarseness, chronic 11/29/2015 History of coronary artery bypass surgery 2014 Overview (11/27/2016): S/P CABG x 3 Hypertension 05/23/2015 Overview (11/27/2016): HTN (hypertension) Assessment & Plan (03/24/2024 8:27 AM CDT): Hypertension chronic controlled. Continue current medical management. Assessment & Plan (04/01/2023 12:45 PM CDT): Hypertension chronic and controlled. Continue current medical management. Assessment & Plan (12/06/2021 1:08 PM CDT): Hypertension chronic and controlled. Continue current medical therapy. Assessment & Plan (10/31/2020 8:54 AM NET PROGRAMMER): Per patient controlled. Continue medical therapy Tobacco use 05/23/2015 Overview (11/27/2016): Tobacco use Need for immunization against influenza 05/24/20 14 Positive antinuclear antibody 05/24/2014 Knee pain 05/24/2014 Resolved Problems Problem Noted Date Diagnosed Date Resolved Date Dyslipidemia 05/23/2015 12/17/2021 Overview (11/27/2016): Dyslipidemia Assessment & Plan (12/06/2021 1:08 PM CDT): Dyslipidemia chronic and controlled. Continue statin therapy. Assessment & Plan (10/31/2020 8:54 AM NET PROGRAMMER): Currently controlled. Continue statin therapy Immunizations Immunization Administration Dates Next Due Influenza, Quadrivalent, Hig h Dose, Preservative Free, Intrr 06/21/2020 Influenza, Trivalent, IM (MDV) 05/24/2014 Influenza, Unspecified 05/08/2016 Moderna SARS-CoV-2 Monovalent Vaccination (12+ Y RS) 10/11/2020 ZOSTER Recombinant 08/07/2020,04/27/2020 Social History Tobacco Use Types Packs/Day Years Used Date Smoking Tobacco: Every Day Cigarettes Smokeless Tobacco: Never Tobacco Cessation:Ready to Q uit: Not Asked; Counseling Given: Not Answered Alcohol Use Standard Drinks/Week Comments No 0 (1 standard drink = 0.6 oz pur e alcohol) AUDIT-C Answer Date Recorded Q1: How often do you have a drink containing alc ohol? Never 01/01/2022 Average Number of Drinks Not on file 022 Frequency of Binge Drinking Not on file 12/22 Comments No Sex and Gender Information Value Date Recorded Sex Assigned at Not on file Legal Sex Female 9:26 PM NET PROGRAMMER Gender Identity Not on file Sexual Orientation Not on file Last Filed Vital Signs Vital Sign Reading Time Taken Comments Blood Pressure 134/62 08/04/2024 2:39 PM NET PROGRAMMER Pulse 67 08/04/2024 2:39 PM NET PROGRAMMER Temperature 37.2 C (99 F) 01/07/2022 11:17 AM CDT Respiratory Rate 16 01/07/2022 11:17 AM CDT Oxygen Saturation 96% 08/04/2024 2:39 PM NET PROGRAMMER Inhaled Oxygen Concentration - - Weight 51.7 kg (114 lb) 08/04/2024 2:39 PM NET PROGRAMMER Height 157.5 cm (5' 2 ) 08/04/2024 2:39 PM NET PROGRAMMER Body Mass Index 20.85 08/04/2024 2:39 PM NET PROGRAMMER Plan of Treatment Not on file Medical Devices Implanted Type Area Outgoing Inspector Device Identifier Shelf Expiration Date Model / Serial / Lot [employer] [id number] Excluder 12mm 23mm 12cm 5.5cm Conformable Active Control Trunk - [id number] - [id number] Implanted:Qty: 1 on 01/06/2022 by Juan David Ren MD at [facility] Endoprosthesis N/A: Aorta [employer] [id number] 10/02/2024 [id number] / [employer] Trade Excluder 12mm 10cm Contralateral Leg Graft Endovascular [id number] - [id number] - [id number] Implanted:Qty: 1 on 01/06/2022 by Juan David Ren MD at [facility] Endoprosthesis Right: Iliac [employer] [id number] 10/20/2024 [id number] / [employer] Excluder 12mm 7cm Stent Dry Color Mixer Seal Cuff Iliac Graft [id number] - [id number] - [id number] Implanted:Qty: 1 on 01/06/2022 by Juan David Ren MD at [facility] Endoprosthesis Left: Iliac [employer] [id number] 03/23/2024 [id number] / [employer] Trade Viabahn 11mm 16sq Mm 8fr 59mm 135cm Balloon Expandable [id number] - [id number] - [id number] Implanted:Qty: 1 on 01/06/2022 by Juan David Ren MD at [facility] Endoprosthesis [employer] [id number] 11/01/2024 [id number] / [id number] / [employer] Trade Viabahn 11mm 16sq Mm 8fr 59mm 135cm Balloon Expandable [id number] - [id number] - [id number] Implanted:Qty: 1 on 01/06/2022 by Juan David Ren MD at [facility] Endoprosthesis [employer] 05/10/2022 [id number] / [id number] / Perclose 6fr Vascular Closure 40081-82 [id number] Implanted:Qty: 1 on 01/06/2022 by Juan David Ren MD at [facility] [employer] 09/23/2023 [id number] / / Perclose 6fr Vascular Closure [id number] Implanted:Qty: 1 on 01/06/2022 by Juan David Ren MD at [facility] [employer] 09/23/2023 [id number] / / Perclose 6fr Vascular Closure 20785-47 [id number] Implanted:Qty: 1 on 01/06/2022 by Juan David Ren MD at [facility] [employer] 09/23/2023 [id number] 3 / / Perclose 6fr Vascular Closure 95932-65 [id number] Implanted:Qty: 1 on 01/06/2022 by Juan David Ren MD at [facility] [employer] 09/23/2023 15949-4 3 / / [place] [address] A[employer]NA MEDICARE AETNA MEDICARE Advance Directives For more information, please contact: [phone] Documents on File Type Date Recorded Patient Ergonomics Engineer Expl anation ADVANCE DIRECTIVE 01/01/2022 3:12 PM Power of Supervisor [employer] * Full Code (Latest Code Status on File) Date Activated Date Inactivated Comments 01/06/2022 3:05 PM 01/07/2022 6:16 PM Care Teams Hospice Music Therapy Relationship Specialty Start Date End Date Juan David Acosta MD [address] [place] [address] PCP - General 11/21/16 Zion Lechuga MD [address] [place] [address] Consulting Physician Cardiology 01/01/22 Juan David Ren MD [address] [place] [facility] [place] [place] [address] Surgeon Vascular Surgery 02/27/22
--- OUTSIDE RECORDS SUMMARY | 2024-12-01 01:04 | XMS_ITS | Clinical Summary ---
Author Organization [facility] [employer] Address [address] [place] [address] Care Team Providers Care Fretted Instruments Inspector Name Role Phone Juan David Acosta MD Primary Care Provider + Source Comments [facility],non-owned Affiliates and Associated Physician Practices is amultiple site organization consisting of ambulatory clinics and hospital sitesin [place], [place], [place] and [place]. This disclosure is being madepursuant to the Care Everywhere program and may not contain all information available regarding this patient. Last updated 18.[facility] [employer] Social History Tobacco Use Types Packs/Day Years Used Date Smoking Tobacco: Never Assessed Sex and Gender Information Value Date Recorded Sex Assigned at Not on file Gender Identity Not on file Sexual Orientation Not on file Plan of Treatment Health Maintenance Due Date Last Done Comments BONE DENSITY TESTING 1945 HEPATITIS C SCREENING 06/02/1965 DTAP/TDAP/TD VACCINES (1 - Tdap) 1966 PNEUMOCOCCAL VACCINE 50+ (1 of 1 - PCV) 1997 ZOSTER VACCINE (1 of 2) 1997 Respiratory Syncytial Virus (RSV) Vaccine Pt: or over 60 yrs (1 - 1-dose 75+ series) 2022 COVID-19 VACCINE ( - 2023-2 5 season) 2024 DEPRESSION SCREENING 08/24/2024 MEDICARE AWV CALENDAR YEAR 2024 INFLUENZA VACCINE (Season Ended) 2025 HEPATITIS B VACCINE Aged Out No longe r eligible based on patient's age to complete this topic HIB VACCINE Aged Out No longer eligi ble based on patient's age to complete this topic HPV VACCINE Aged Out No longer eligi ble based on patient's age to complete this topic MENINGOCOCCAL (Group B) VACC INE SHARED DECISION-MAKING Aged Out No longer eligibl e based on patient's age to complete this topic MENINGOCOCCAL GROUPS A/C/Y/W VACCINE Aged Out No longer eligible b ased on patient's age to complete this topic Care Teams Fretted Instruments Inspector Relationship Specialty Start Date End Date Juan David Acosta MD [address] [address] PCP - General 11/19/18
--- OUTSIDE RECORDS SUMMARY | 2024-12-01 01:04 | XMS_ITS | Clinical Summary ---
Author Organization [facility] [address] Address [address] [place] [address] Care Team Providers Care Occupational Health Physiotherapist Name Role Phone Juan David Acosta MD Primary Care Prov ider Zion Lechuga MD Unavailable [phone] Juan David Ren MD Unavailable [phone] Allergies Active Allergy Reactions Criticality Noted Date [...] 6 (six) hours as needed 1 Active aezhnwuwj-XH-yu etamin-guaifen [id number] mg tablet Take 1 tablet by mouth [...] mg SL tabletIndicatio ns:Coronary artery disease involving [place] coronary artery of [place] heart without angina pectoris PLACE 1 TABLET [...] Myalgia 03/13/2020 Coronary artery disease invo lving [place] coronary artery of [place] heart without angina pectoris 09/05/2019 Nonrheumatic aortic [...] proceed. Assessment & Plan (10/31/2020 8:54 AM CLINICAL RESEARCH ASSOCIATE): Stable 3.5 cm fusiform infrarenal abdominal aortic aneurysm. Continue 6 month duplex surveillance. No indication for further workup or intervention at this time. Left wrist fracture 11/30/2017 History of fundoplication 11/22/2016 Status post abdominal aortic aneurysm (AAA) repa ir 11/22/2016 Assessment & Plan (09/12/2022 2:58 PM CLINICAL RESEARCH ASSOCIATE): Patient is following up today for her [...] therapy. Assessment & Plan (10/31/2020 8:54 AM CLINICAL RESEARCH ASSOCIATE): Per patient controlled. Continue medical therapy Tobacco use 05/23/2015 Overview (11/27/2016): Tobacco use Need for immunization against influenza 05/24/20 14 Positive antinuclear antibody 05/24/2014 Knee pain 05/24/2014 Resolved Problems Problem Noted Date Diagnosed Date Resolved Date Dyslipidemia 05/23/2015 12/17/2021 Overview (11/27/2016): Dyslipidemia Assessment & Plan (12/06/2021 1:08 PM CDT): Dyslipidemia chronic and controlled. Continue statin therapy. Assessment & Plan (10/31/2020 8:54 AM CLINICAL RESEARCH ASSOCIATE): Currently controlled. Continue statin therapy Encounters Date Type Department Care Team Description 09/19/2024 Telephone [facility] Cardiology [address] [place] [address] Bo Brambila MD from Last 3 Months Immunizations Immunization Administration Dates Next Due Influenza, Quadrivalent, Hig h Dose, Preservative Free, Intrr 06/21/2020 Influenza, Trivalent, IM (MDV) 05/24/2014 Influenza, Unspecified 05/08/2016 Moderna SARS-CoV-2 Monovalent Vaccination (12+ Y RS) 10/11/2020 ZOSTER Recombinant 08/07/2020,04/27/2020 Surgical History Surgery Date Site/Laterality Comments CATARACT EXTRACTION cataract removal CORONARY ARTERY BYPASS GRAFT 08/24/1995 - 08/23/1996 Coronary Artery Bypass Graft CARDIAC CATHETERIZATION 08/24/1995 - 08/23/1996 VENTRAL HERNIA REPAIR 08/24/2007 - 08/23/2008 ventral hernia repair HIATAL HERNIA REPAIR 08/24/2015 - 08/23/2016 nissum fundiplication WRIST SURGERY 07/24/2017 - 08/23/2017 Left hardware, fracture repair ENDOSCOPIC AORTIC REPAIR 01/06/2022 PEVAR Medical History Medical History Date Comments Anxiety disorder anxiety Osteoarthritis osteoarthritis Gastroesophageal reflux disease GERD Chronic coronary artery disease Coronary Artery Disease Aortic stenosis Hypertension Hyperlipidemia Insomnia Osteoporosis Arthritis joint pain Neuropathy AAA (abdominal aortic aneurysm) Family History Medical History Relation Name Comments Coronary artery disease Brother 2 Remi nary Artery Bypass Graft; Heart failure Father Congestive Hea rt Failure; Coronary artery disease Sister 2 Remi nary Artery Bypass Graft; Relation Name Status Comments Brother 1 Alive Brother 2 Father Alive Sister 1 Alive Sister 2 Social History Tobacco Use Types Packs/Day Years [...] on file Legal Sex Female 9:26 PM CLINICAL RESEARCH ASSOCIATE Gender Identity Not on file Sexual Orientation Not on file Obstetrics History Last Filed Vital Signs Vital Sign Reading Time Taken Comments Blood Pressure 134/62 08/04/2024 2:39 PM CLINICAL RESEARCH ASSOCIATE Pulse 67 08/04/2024 2:39 PM CLINICAL RESEARCH ASSOCIATE Temperature 37.2 C (99 F) 01/07/2022 11:17 AM CDT Respiratory Rate 16 01/07/2022 11:17 AM CDT Oxygen Saturation 96% 08/04/2024 2:39 PM CLINICAL RESEARCH ASSOCIATE Inhaled Oxygen Concentration - - Weight 51.7 kg (114 lb) 08/04/2024 2:39 PM CLINICAL RESEARCH ASSOCIATE Height 157.5 cm (5' 2 ) 08/04/2024 2:39 PM CLINICAL RESEARCH ASSOCIATE Body Mass Index 20.85 08/04/2024 2:39 PM CLINICAL RESEARCH ASSOCIATE Plan of Treatment Health Maintenance Due Date Last Done Comments Depression Screening 1945 Hepatitis C Screening 1945 Osteoporosis Screening-Bone Density Scan 1945 DTaP/Tdap/Td Vaccine (1 - Tdap) 1958 Hepatitis B Screening 1965 Pneumococcal vaccine 65+ (1 of 2 - PCV) 1966 Well Visit 65+ 2012 Fall Risk Assessment 01/07/2023 01/07/2022, 12/18/19 22 Covid-19 Vaccine ( season) 2024 08/08/2021, 11/12/2020, 10/11/2020 Influenza Vaccine (Season Ended) 2025 06/21/2020, 05/08/2016, 05/24/2014 Zoster Vaccine Completed 08/07/2020, 04/27/2020 Medical Devices Implanted Type Area District Commercial Superintendent Device Identifier Shelf Expiration Date Model / Serial / Lot [employer] [id number] Excluder 12mm 23mm 12cm 5.5cm Conformable Active Control Trunk - [id number] - [id number] Implanted:Qty: 1 on 01/06/2022 by Juan David Ren MD at [facility] Endoprosthesis N/A: Aorta Wl [employer] [id number] 10/02/2024 [id number] / Wl [employer] Dougherty Excluder 12mm 10cm Contralateral Leg Graft Endovascular [id number] - [id number] - [id number] Implanted:Qty: 1 on 01/06/2022 by Juan David Ren MD at [facility] Endoprosthesis Right: Iliac [employer] [id number] 10/20/2024 [id number] / Wl [employer] Excluder 12mm 7cm Stent Commercial Roofer Seal Cuff Iliac Graft [id number] - [id number] - [id number] Implanted:Qty: 1 on 01/06/2022 by Juan David Ren MD at [facility] Endoprosthesis Left: Iliac W[employer] [id number] 03/23/2024 [id number] / W[employer] Viabahn 11mm 16sq Mm 8fr 59mm 135cm Balloon Expandable [id number] - [id number] - [id number] Implanted:Qty: 1 on 01/06/2022 by Juan David Ren MD at [facility] Endoprosthesis W[employer] [id number] 11/01/2024 [id number] / [id number] / Wl [employer]herty Viabahn 11mm 16sq Mm 8fr 59mm 135cm Balloon Expandable [id number] - [id number] - [id number] Implanted:Qty: 1 on 01/06/2022 by Juan David Ren MD at [facility] Endoprosthesis W[employer] 05/10/2022 [id number] / [id number] / Perclose 6fr Vascular Closure [id number] - [id number] Implanted:Qty: 1 on 01/06/2022 by Juan David Ren MD at [facility] [employer] 09/23/2023 [id number] / / Perclose 6fr Vascular Closure 35596-98 - [id number] Implanted:Qty: 1 on 01/06/2022 by Juan David Ren MD at [facility] [employer] 09/23/2023 [id number] 3 / / Perclose 6fr Vascular Closure [id number] - [id number] Implanted:Qty: 1 on 01/06/2022 by Juan David Ren MD at [facility] [employer] 09/23/2023 [id number] 3 / / Perclose 6fr Vascular Closure 13074-73 [id number] Implanted:Qty: 1 on 01/06/2022 by Juan David Ren MD at [facility] [employer] 09/23/2023 [id number] 3 / / Insurance AETNA MEDICARE AETNA MEDICARE Advance Directives For more information, please contact: [phone] Documents on File Type Date Recorded Patient Online Communications Manager Expl anation ADVANCE DIRECTIVE 01/01/2022 3:12 PM Power of Sewing Machine Adjuster-Medical * Full Code (Latest Code Status on File) Date Activated Date Inactivated Comments 01/06/2022 3:05 PM 01/07/2022 6:16 PM Care Teams Occupational Health Physiotherapist Relationship Specialty Start Date End Date Juan David Acosta MD [address] [place] [address] PCP - General 11/21/16 Zion Lechuga MD [address] [place] [address] Consulting Physician Cardiology 01/01/22 Juan David Ren MD [address] [facility] [address] [address] Surgeon Vascular Surgery 02/27/22
--- OUTSIDE RECORDS SUMMARY | 2024-12-01 01:04 | XMS_ITS | Clinical Summary ---
Author Organization [facility] Address [address] [facility] Attn: Epic Prelude ADT [place] [address] Care Team Providers Care Mail Messenger Contractor Name Role Phone Unavailable Primary Care Provider Unavailabl e Medications alirocumab (Praluent Pen) 75 mg/mL Pen Injector Inject 75 mg by subcutaneous injection every 2 weeks. 2 mL 11 09/22/2024 3:38 PM EDGER LINER 5 Active alirocumab (Praluent Pen) 75 mg/mL Pen Injector Inject 75 mg under the skin every 14 (fourteen) days 2 mL 11 11/14/2024 2:28 PM CDT 5 Active Encounters Date Type Department Care Team Description 09/13/2024 Refill [facility] [address] [place] [address] Zion Lechuga MD from Last 3 Months Social History Tobacco Use Types Packs/Day Years Used Date Smoking Tobacco: Never Assessed Comments Unknown Sex and Gender Information Value Date Recorded Sex Assigned at Not on file Legal Sex Female 3:27 PM CDT Gender Identity Not on file Sexual Orientation Not on file Plan of Treatment Health Maintenance Due Date Last Done Comments DTAP/TDAP/TD VACCINES (1 - Tdap) 1966 PNEUMOCOCCAL VACCINE 50+ YEARS (1 of 1 - PCV) 06/07/19 97 ZOSTER VACCINE (1 of 2) 1997 OSTEOPOROSIS SCREENING 2012 RSV VACCINE (60+ or ) (1 - 1-dose 75+ series) 2022 INFLUENZA VACCINE (#1) 2024 Insurance RX AETNA Medicare Part D
[2024-12-01 07:58] VITALS: BP 137/57; PULSE 76; RESP 20; TEMP 36.3; O2SAT 99
[2024-12-01] MEDS: LACTATED RINGERS 1,000 ML 150 ML IV CONT (08:11)
--- NOTE | 2024-12-01 08:19 | P.PNAN_ITS ---
Anes - Initial Pre Proc Eval Procedure: Operation Date: 12/01/24 09:00 Proposed Procedures p Colonoscopy - Ross Jernigan MD Date/Time: 12/01/24 08:19 Surgeon: Ross Jernigan MD Pre Op Diagnosis: Constipation, unspecified Patient Data Age: 79 Gender: F Height: 1.57 m Weight: 48 kg Last Vital Signs Temp 97.3 F L 12/01/24 07:58 Pulse 76 12/01/24 07:58 Resp 20 12/01/24 07:58 BP 137/57 L 12/01/24 07:58 Pulse Ox 99 12/01/24 07:58 O2 Del Method Room Air 12/01/24 07:58 Allergies Allergy/AdvReac Type Severity Reaction Status Date / Time tetanus toxoid, adsorbed Allergy Intermediate SWELLING Verified 12/01/24 07:52 AND REDNESS AT SITE erythromycin base Allergy Unknown Unknown Verified 12/01/24 07:52 Sulfa (Sulfonamide Allergy Unknown Unknown Verified 12/01/24 07:52 Antibiotics) tetanus immune globulin Allergy Unknown Swelling Verified 12/01/24 07:52 Home Medications ?Medication ?Instructions ?Recorded ?Confirmed ?Type amlodipine 10 mg tablet 10 mg PO DAILY 05/08/22 12/01/24 History aspirin 81 mg tablet,delayed 81 mg PO DAILY 05/08/22 12/01/24 History release (Adult Aspirin Regimen) cetirizine 10 mg capsule (Allergy 10 mg PO DAILY PRN Allergy Symptoms 05/08/22 11/23/24 History Relief (cetirizine)) cholecalciferol (vitamin D3) 50 50 mcg PO DAILY 05/08/22 12/01/24 History mcg (2,000 unit) capsule alirocumab 75 mg/mL subcutaneous 75 mg subcut Q14D 08/11/22 12/01/24 History pen injector (Praluent Pen) ipratropium bromide 42 mcg (0.06 2 spray intranasal TID PRN allergy 10/27/23 11/23/24 Rx %) nasal spray symptoms #15 mL coenzyme Q10 10 mg capsule (Co 10 mg PO ONCE 03/02/24 12/01/24 History Q-10) atorvastatin 80 mg tablet 80 mg PO DAILY #90 tabs 04/15/24 12/01/24 Rx pyridoxine (vitamin B6) 10 mg 10 mg PO DAILY 06/01/24 12/01/24 History tablet pantoprazole 40 mg tablet,delayed 40 mg PO DAILY #90 tabs 07/22/24 12/01/24 Rx release tramadol 50 mg tablet See Rx Instructions PO Q6H PRN 08/31/24 11/23/24 Rx pain #80 tabs polyethylene glycol 3350 17 gram 17 g PO DAILY #90 ea 10/19/24 12/01/24 Rx oral powder packet (Miralax) acetaminophen 500 mg tablet 500 mg PO Q6H PRN pain 11/22/24 11/23/24 History ezetimibe 10 mg tablet 10 mg PO DAILY 11/22/24 12/01/24 History nitroglycerin 0.4 mg sublingual 0.4 mg sublingual .chest pain PRN 11/22/24 11/23/24 History tablet chest pain duloxetine 30 mg capsule,delayed 30 mg PO DAILY #30 caps 11/23/24 12/01/24 Rx release (Cymbalta) Patient hx anesthesia problems: none Family hx anesthesia problems: none Results Review: All pre-operative results and documents have been reviewed as part of the pre- operative evaluation. [facility] Past Medical History Medical History (Updated 11/24/24 @ 14:39 by Narda Melgoza DO) Pain in mouth Geographic tongue Colon cancer screening Slipped Deandra fundoplication Menopause Surgical History Surgical History History of repair of aneurysm of abdominal aorta using endovascular stent graft (12/2021) Hx of CABG (1995) Family History Family History Mother Family history of osteoporosis Sibling Family history of osteoporosis Heart disease Sibling Alcoholism Cancer Heart disease Other Family history of elevated blood lipids Social History Social History Smoking packs per day: 1 Smoking cigarettes per day: 20.0 Smoking status: Current every day smoker Tobacco type: cigarettes Second hand tobacco smoke exposure: No Alcohol intake: unknown Substance use: never Substance use type: does not use Lack of Transportation: No Lack of Food: Never True Current Housing: I Have Housing Concerned About Future Housing: No Difficulty Paying Gas/Electric Bills: No Difficulty Paying for Meds: No Currently Unemployed: No Education: Bachelor's Degree Difficulty w/ Childcare or Family Care: No Living arrangements: with family Gender identity (if verbalized by the patient): Female Spiritual care concerns: No Anes - Eval Final PreProcedure Day of Procedure 12/01/24 08:19 Patient weight: normal Heart: regular rate and rhythm Lungs: clear to auscultation Airway: Mallampati scale class II Neurological: alert and oriented Last oral intake: >/= 8 hours ASA classification: III Emergent: no Anesthetic plan: proceed Anesthesia type and monitoring: general GIVS and standard monitoring Results Review: All pre-operative results and documents have been reviewed as part of the pre- operative evaluation. Informed Consent: The patient's anesthetic plan and its attendant risks and benefits were discussed with the patient/family/POA. Questions were solicited and answers provided to the satisfaction of the patient/family/POA.
--- NOTE | 2024-12-01 08:42 | PM.IMHP ---
H&P: HPI History of Present Illness Date/Time: 12/01/24 08:42 Chief Complaint: Screening colonoscopy Narrative: This is the patient's 2nd colonoscopy. she had a colonoscopy 10 years ago, finding only hyperplastic polyps. There are no GI symptoms and there is no family history of colorectal cancer. Review of Systems Review of Systems: All systems reviewed & are unremarkable except as noted in HPI and below PMFSH Past Medical History Medical History (Updated 12/01/24 @ 08:43 by Ross Jernigan MD) Pain in mouth Geographic tongue Colon cancer screening Slipped Deandra fundoplication Menopause Surgical History Surgical History History of repair of aneurysm of abdominal aorta using endovascular stent graft (12/2021) Hx of CABG (1995) Family History Family History Mother Family history of osteoporosis Sibling Family history of osteoporosis Heart disease Sibling Alcoholism Cancer Heart disease Other Family history of elevated blood lipids Social History Social History Smoking packs per day: 1 Smoking cigarettes per day: 20.0 Smoking status: Current every day smoker Tobacco type: cigarettes Second hand tobacco smoke exposure: No Alcohol intake: unknown Substance use: never Substance use type: does not use Lack of Transportation: No Lack of Food: Never True Current Housing: I Have Housing Concerned About Future Housing: No Difficulty Paying Gas/Electric Bills: No Difficulty Paying for Meds: No Currently Unemployed: No Education: Bachelor's Degree Difficulty w/ Childcare or Family Care: No Living arrangements: with family Gender identity (if verbalized by the patient): Female Spiritual care concerns: No Meds Home Medications and Allergies Home Medications ?Medication ?Instructions ?Recorded ?Confirmed ?Type amlodipine 10 mg tablet 10 mg PO DAILY 05/08/22 12/01/24 History aspirin 81 mg tablet,delayed 81 mg PO DAILY 05/08/22 12/01/24 History release (Adult Aspirin Regimen) cetirizine 10 mg capsule (Allergy 10 mg PO DAILY PRN Allergy Symptoms 05/08/22 11/23/24 History Relief (cetirizine)) cholecalciferol (vitamin D3) 50 50 mcg PO DAILY 05/08/22 12/01/24 History mcg (2,000 unit) capsule alirocumab 75 mg/mL subcutaneous 75 mg subcut Q14D 08/11/22 12/01/24 History pen injector (Praluent Pen) ipratropium bromide 42 mcg (0.06 2 spray intranasal TID PRN allergy 10/27/23 11/23/24 Rx %) nasal spray symptoms #15 mL coenzyme Q10 10 mg capsule (Co 10 mg PO ONCE 03/02/24 12/01/24 History Q-10) atorvastatin 80 mg tablet 80 mg PO DAILY #90 tabs 04/15/24 12/01/24 Rx pyridoxine (vitamin B6) 10 mg 10 mg PO DAILY 06/01/24 12/01/24 History tablet pantoprazole 40 mg tablet,delayed 40 mg PO DAILY #90 tabs 07/22/24 12/01/24 Rx release tramadol 50 mg tablet See Rx Instructions PO Q6H PRN 08/31/24 11/23/24 Rx pain #80 tabs polyethylene glycol 3350 17 gram 17 g PO DAILY #90 ea 10/19/24 12/01/24 Rx oral powder packet (Miralax) acetaminophen 500 mg tablet 500 mg PO Q6H PRN pain 11/22/24 11/23/24 History ezetimibe 10 mg tablet 10 mg PO DAILY 11/22/24 12/01/24 History nitroglycerin 0.4 mg sublingual 0.4 mg sublingual .chest pain PRN 11/22/24 11/23/24 History tablet chest pain duloxetine 30 mg capsule,delayed 30 mg PO DAILY #30 caps 11/23/24 12/01/24 Rx release (Cymbalta) Allergies Allergy/AdvReac Type Severity Reaction Status Date / Time tetanus toxoid, adsorbed Allergy Intermediate SWELLING Verified 12/01/24 07:52 AND REDNESS AT SITE erythromycin base Allergy Unknown Unknown Verified 12/01/24 07:52 Sulfa (Sulfonamide Allergy Unknown Unknown Verified 12/01/24 07:52 Antibiotics) tetanus immune globulin Allergy Unknown Swelling Verified 12/01/24 07:52 Vital Signs Vital Signs - 24 hr 12/01/24 07:58 Temperature 97.3 F L Pulse Rate 76 Respiratory Rate 20 Blood Pressure 137/57 L Pulse Oximetry 99 Oxygen Delivery Room Air Exam Const: General: cooperative and healthy appearing Resp: Effort & Inspection: normal respiratory effort and able to speak in complete sentences Auscultation: clear to auscultation bilaterally Cardio: Rate: regular rate Rhythm: regular rhythm GI: Inspection: normal to inspection GI Palp: No No hepatosplenomegaly present Auscultation: normal bowel sounds Rectal Exam: deferred Skin: General skin exam: normal color Psych: Appearance: grossly normal Mental Status: mental status grossly normal Assessment and Plan Assessment and plan (1) Encounter for screening colonoscopy: Code(s): Z12.11 - Encounter for screening for malignant neoplasm of colon Status: Acute Assessment and Plan: The patient is deemed a good candidate for the procedure. Consent signed. Will proceed.
[2024-12-01 09:16] VITALS: BP 102/51; PULSE 73; RESP 26; O2SAT 96
[2024-12-01 09:26] VITALS: BP 99/53; PULSE 72; RESP 20; O2SAT 99
[2024-12-01 09:36] VITALS: BP 130/63; PULSE 62; RESP 20; O2SAT 98
== END 2024-12-01 10:00 | disposition home or self-care (01) ==
PROVIDERS: PCP Family Medicine; Referring Provider Nurse Practitioner; Visit Provider Internal Medicine Gastroenterology
PROC: 0DJD8ZZ Inspection of Lower Intestinal Tract, Via Natural or Artificial Opening Endoscopic (ICD-10-PCS; CPT 45378; principal; 2024-12-01 09:00)
DX: Z12.11 Encounter for screening for malignant neoplasm of colon (principal); K63.5 Polyp of colon; K57.30 Diverticulosis of large intestine without perforation or abscess without bleeding; F17.210 Nicotine dependence, cigarettes, uncomplicated
CPT/HCPCS: 45385; 88305; J2003; J2704; J7120

== ENCOUNTER 2025-04-15 13:05 | Emergency (ER) | payer MEDICARE, SELFPAY ==
--- NOTE | ~2025-04-15 | CT_ITS ---
EXAMINATION: CT facial bones w con DATE: 04/15/2025 15:44 INDICATION: Left maxillary sinus swelling. TECHNIQUE: Computed tomography (CT) of the facial bones was performed with 75 cc Omnipaque 350 intravenous contrast. The dose-length product was 331.83 mGy-cm. Automated exposure control and iterative reconstruction technique were employed. COMPARISON: No prior studies for comparison. FINDINGS: No significant abnormality of the paranasal sinuses. Evaluation of soft tissues overlying the mandible limited due to streak artifact from dental amalgam. No intracranial abnormality is seen. No discrete walled off fluid collection to suggest abscess. There are small normal appearing submandibular lymph nodes. There is mild asymmetric soft tissue overlying the left maxilla, suspicious for cellulitis. IMPRESSION: 1. Mild soft tissue edema/fatty infiltration overlying the left maxilla anteriorly, suspicious for cellulitis. No evidence for abscess. Reviewed, dictated and finalized at location O. IMPRESSION: 1. Mild soft tissue edema/fatty infiltration overlying the left maxilla anterio rly, suspicious for cellulitis. No evidence for abscess.
--- OUTSIDE RECORDS SUMMARY | 2025-04-15 12:45 | XMS_ITS | Encounter Summary ---
Author Organization [facility] Healthcare Address [address] [place] [address] Care Team Providers Care Melt House Supervisor Name Role Phone Zion Lechuga MD Unavailable Juan David Ren MD Unavailable [phone] Narda Melgoza DO Primary Care Provider [phone] Reason for Visit * Reason Comments Sinus Problem Since Encounter Details Date Type Department Care Team (Late st Contact Info) Description 04/15/2025 12:45 PM CDT Office Visit [facility] at [address] [address] Kevin Ramirez NP [address] [place] [address] [address] [place] [address] Left facial swelling (Primary Dx); Erythema of face; Facial cellulitis Social History Tobacco Use Types Packs/Day Years Used Date Smoking Tobacco: Every Day Cigarettes Smokeless Tobacco: Never Alcohol Use Standard Drinks/Week Comments No 0 (1 standard drink = 0.6 oz pur e alcohol) AUDIT-C Answer Date Recorded Q1: How often do you have a drink containing alc ohol? Never 01/01/2022 Average Number of Drinks Not on file 022 Frequency of Binge Drinking Not on file 12/22 Personal Safety Answer Date Recorded Have you ever been in or are you currently in a harmful physical or emotional relationship or is someone making you feel afraid or unsafe? Denies 03/09/2025 Comments No Sex and Gender Information Value Date Recorded Sex Assigned at Not on file Legal Sex Female 9:26 PM WARDROBE ASSISTANT Gender Identity Not on file Sexual Orientation Not on file documented as of this encounter Last Filed Vital Signs Vital Sign Reading Time Taken Comments Blood Pressure 131/76 04/15/2025 11:51 AM CDT Pulse 73 04/15/2025 11:51 AM CDT Temperature 36.7 C (98 F) 04/15/2025 11:51 AM CDT Respiratory Rate 18 04/15/2025 11:51 AM CDT Oxygen Saturation 96% 04/15/2025 11:51 AM CDT Inhaled Oxygen Concentration - - Weight 49.9 kg (110 lb) 04/15/2025 11:51 AM CDT Height - - Body Mass Index 20.12 04/06/2025 1:03 PM CDT documented in this encounter Patient Instructions * Patient Instructions* Kevin Ramirez NP - 04/15/2025 12:45 PM CDT Recommend ED higher level of care for further evaluation and tx. documented in this encounter Plan of Treatment Not on file documented as of this encounter Visit Diagnoses Diagnosis Left facial swelling- Primary Swelling, mass, or lump in head and neck Erythema of face Facial cellulitis documented in this encounter Historical Medications * This list may reflect changes made after this encounter. Medication Sig Dispense Quantity Refills Last Filled Start D ate End Date Praluent Pen 75 mg/mL pen injector 02/01/2025 added in this encounter Care Teams Melt House Supervisor Relationship Specialty Start Date End Date Narda Melgoza DO [address] [place] [address] PCP - General Family Medicine 02/15/25 Zion Lechuga MD Consulting Physician Cardiology 01/01/22 Juan David Ren MD [address] [place] [address] Surgeon Vascular Surgery 02/27/22 documented as of this encounter
--- OUTSIDE RECORDS SUMMARY | 2025-04-15 12:45 | XMS_ITS | Encounter Summary ---
Author Organization [facility] Healthcare Address [address] [place] [address] Care Team Providers Care Arc Welding Machine Operator Name Role Phone Zion Lechuga MD Unavailable [phone] Juan David Ren MD Unavailable [phone] Narda Melgoza DO Primary Care Provider [phone] Reason for Visit * Reason Comments Sinus Problem Since Encounter Details Date Type Department Care Team (Late st Contact Info) Description 04/15/2025 12:45 PM CDT Office Visit [facility] at [address] [address] Kevin Ramirez NP [address] [place] [address] [address] [place] [address] Left facial swelling (Primary Dx); [...] on file Legal Sex Female 9:26 PM DERRICK WORKER Gender Identity Not on file Sexual Orientation [...] 02/01/2025 added in this encounter Care Teams Arc Welding Machine Operator Relationship Specialty Start Date End Date Narda Melgoza DO [address] [place] [address] PCP - General Family Medicine 02/15/25 Zion Lechuga MD Consulting Physician Cardiology 01/01/22 Juan David Ren MD [address] [facility] [address] [place] [address] Surgeon Vascular Surgery 02/27/22 documented as of this encounter
--- OUTSIDE RECORDS SUMMARY | 2025-04-15 13:08 | XMS_ITS | Clinical Summary ---
Author Organization [facility] Address [address] [place] [address] Care Team Providers Care General Duty Nurse Name Role Phone Juan David Acosta MD Primary Care Provider + Source Comments [facility],non-owned Affiliates and Associated Physician Practices is amultiple site organization consisting of ambulatory clinics and hospital sitesin [place], [place], [place] and [place]. This disclosure is being madepursuant to the Care Everywhere program and may not contain all information available regarding this patient. Last updated 18.[facility] alike Social History Tobacco Use Types Packs/Day Years Used Date Smoking Tobacco: Never Assessed Comments Unknown Sex and Gender Information Value Date Recorded Sex Assigned at Not on file Legal Sex Female 6:16 AM EMG TECHNICIAN Gender Identity Not on file Sexual Orientation [...] MEDICARE AWV CALENDAR YEAR 2024 INFLUENZA VACCINE (#1) 2025 HEPATITIS B VACCINE Aged Out No [...] on patient's age to complete this topic Insurance AETNA [facility] Address: [facility] [id number] [place] [phone] AETNA MEDICARE ADV SELF PAY NO INSURANCE Member Subscriber Plan / Payer (Ef fective for All Dates) Name:Tyron Isaiasorion Member ID:Not on file Relation to Subscriber:Not on file Name:TYRONISAIASORION Subscriber ID:Not on file (Home) Address: [address] [place] [address] Payer ID:Not on file Group ID:Not on file Type:Self Pay Address: [place], [place] Care Teams General Duty Nurse Relationship Specialty Start Date End Date Juan David Acosta MD [address] [place] [id number] PCP - General 11/19/18
--- OUTSIDE RECORDS SUMMARY | 2025-04-15 13:08 | XMS_ITS | Encounter Summary ---
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 Please read and complete/answer the following questions. There are no right or wrong answers. Please mike or indicate the answer that best applies to you. 1. Heart failure affects different people in different ways. Some feel shortness of breath while others feel fatigue. Please indicate how much you are limited by heart failure (shortness of breath orfatigue) in your ability to do the following activities over the past 2 weeks. Activities: Extremely Limited (1) Quite a bit limited (2) Moderately Limited (3) Slightly Limited (4) Not at all limited (5) Limited for other reasons or does not apply (6) Showering/Bathing X Walking 1 block of level ground X Hurrying or jogging (as if to catch a bus) X 2. Over the past 2 weeks, how many times did you have swelling in your feet, ankles or legs when you woke up in the morning? Every Morning (1) 3 or more times a week (2) 1-2 times a week (3) Less than once a week (4) Never in the past 2 weeks (5) X 3. Over the past 2 weeks, on average, how many times has fatigue limited your ability to do what you wanted? All of the time (1) Several times a day (2) At least once a day (3) 3 or more times a week but not every day (4) 1-2 times per week (5) Less than once a week (6) Never over the past 2 weeks (7) X 4. Over the past 2 weeks, on average, how many times has shortness of breath limited your ability to do what you wanted? All of the time (1) Several times a day (2) At least once a day (3) 3 or more times a week but not every day (4) 1-2 times per week (5) Less than once a week (6) Never over the past 2 weeks (7) X 5. Over the past 2 weeks, on average, how many times have you been forced to sleep sitting up in a chair or with at least 3 pillows to prop you up because of shortness of breath? Every Night (1) 3 or more times a week (2) 1-2 times a week (3) Less than once a week (4) Never in the past 2 weeks (5) X 6. Over the past 2 weeks, how much has your heart failure limited your enjoyment of life? Extremely Limited (1) Quite a bit limited (2) Moderately Limited (3) Slightly Limited (4) Not at all limited (5) X 7. If you had to spend the rest of your life with your heart failure the way it is right now, how would you feel about this? Not at all satisfied (1) Mostly dissatisfied (2) Somewhat satisfied (3) Mostly satisfied (4) Completely satisfied (5) X 8. How much does your heart failure affect your lifestyle? Please indicate how your heart failure may have limited your participation in the following activities over the past 2 weeks. Lifestyle Activities: Extremely Limited (1) Quite a bit limited (2) Moderately Limited (3) Slightly Limited (4) Not at all limited (5) Limited for other reasons or does not apply (6) A.Hobbies/Recreation activities X B.Working or doing vp hr diversity X C. Visiting family or friends outside of the home X * Benja Mckeon RN - 02/22/2025 11:08 AM CDT Images from the original note were not included. Structural Heart Consult for TAVR vs SAVR Patient Name:Vamsi Alonzo Age:79 y.o. :1945 Referring Physician: Bo Brambila PCP:Narda Melgoza DO CHIEF Chief Complaint Patient presents with dyspnea on exertion but is unable to quantify the distance. She has occasional postural dizziness without syncope. Remote hx of CABG in 1995. Medications Allergies: Allergies Allergen Reactions Tetanus Vaccines And Toxoid Swelling and Edema Bupivacaine-Lidocaine Other (See comments) Caused EKG changes, sent patient to emergency room, per patient cardiology stated everything was normal Doxycycline Itching Erythromycin Nausea only Sulfa Nausea only Sulfa (Sulfonamide Antibiotics) Nausea only Outpatient Meds: Current Outpatient Medications Medication Instructions acetaminophen (TYLENOL) 500 mg, Every 6 hours PRN acidophilus-pectin, citrus 100 million cell-10 mg capsule Take by mouth amLODIPine (NORVASC) 10 mg, oral, Daily atorvastatin (LIPITOR) 80 mg, oral, Daily b complex vitamins capsule 1 capsule, Daily [place] Low Dose Aspirin 81 mg celecoxib (CELEBREX) 200 mg, Daily cetirizine (ZYRTEC) 10 mg, As needed cholecalciferol (VITAMIN D-3) 2,000 Units, Daily docusate sodium (COLACE) 100 mg, As needed DULoxetine DR (CYMBALTA) 30 mg, Daily ezetimibe (ZETIA) 10 mg, oral, Daily ipratropium (ATROVENT) 42 mcg (0.06 %) nasal spray 2 sprays, 4 times daily L. gasseri-B. bifidum-B longum 1.5 billion cell capsule 1 tablet, Daily nitroglycerin (NITROSTAT) 0.4 mg, sublingual, Every 5 min PRN, Up to 3 doses, then call [address] (PROTONIX) 40 mg, Daily sffmevtjm-JT-avpbxprt-guaifen [id number] mg tablet 1 tablet, As needed traMADoL (ULTRAM) 50 mg, Every 6 hours PRN varenicline tartrate (Chantix) 1 mg tablet Take 0.5 tablets (0.5 mg total) by mouth daily for 3 days, THEN 0.5 tablets (0.5 mg total) 2 (two) times a day for 4 days, THEN 1 tablet (1 mg total) 2 (two) times a day. Take with full glass of water. LABS Chem/LFT Lab History Latest Ref Rng & Units 03/09/2025 08:41 Labs-Chem/LFT Sodium 135 - 145 mmol/L 137 Creatinine 0.60 - 1.10 mg/dL 0.86 CrCl- Actual Body Weight (Cockcroft-Gault) 42.8 Hematology Lab History Latest Ref Rng & Units 03/09/2025 08:41 Labs - Hematology WBC 3.80 - 9.90 K/cumm 8.06 Total Hb, POC 11.9 - 15.5 g/dL 12.1 Hct 35.6 - 45.5 % 37.5 Plt 150 - 400 K/cumm 258 Neutrophil abs 1.50 - 6.50 K/cumm 4.52 Lymphocytes, abs 0.80 - 3.30 K/cumm 2.58 Medical and Surgical Hx Past Medical History: Diagnosis Date AAA (abdominal aortic aneurysm) Anxiety disorder anxiety Aortic stenosis Arthritis joint pain Chronic coronary artery disease Coronary Artery Disease Gastroesophageal reflux disease GERD Hyperlipidemia Hypertension Insomnia Neuropathy Osteoarthritis osteoarthritis Osteoporosis Severe aortic stenosis Past Surgical History: Procedure Laterality Date ABDOMINAL AORTIC ANEURYSM REPAIR AORTOGRAM 03/09/2025 Procedure: AORTOGRAM; Surgeon: Emre Bowser MD; Location: [facility]; Service: Cardiovascular;; CARDIAC CATHETERIZATION 1995 CARDIAC CATHETERIZATION N/A 03/09/2025 Procedure: RIGHT LEFT HEART CATHETERIZATION WITH CORONARY ANGIOGRAPHY GRAFT AND WITH OR WITHOUT LEFT VENTRICULOGRAPHY 91561; Surgeon: Emre Bowser MD; Location: [facility]; Service: Cardiovascular; Laterality: N/A; ARA w/ LHC 03/09 at 10 CARDIAC CATHETERIZATION N/A 03/09/2025 Procedure: ULTRASOUND GUIDANCE FOR VASCULAR ACCESS S&I 71973; Surgeon: Emre Bowser MD; Location: [facility]; Service: Cardiovascular; Laterality: N/A; CARDIAC CATHETERIZATION N/A 03/09/2025 Procedure: SELECTIVE CATH SUBCLAVIAN OR INNOMINATE ARTERY, UNILATERAL [id number]; Surgeon: Emre Bowser MD; Location: [facility]; Service: Cardiovascular; Laterality: N/A; CATARACT EXTRACTION cataract removal CORONARY ARTERY BYPASS GRAFT 1995 Coronary Artery Bypass Graft ENDOSCOPIC AORTIC REPAIR 01/06/2022 PEVAR HIATAL HERNIA REPAIR 2015 nissum fundiplication VENTRAL HERNIA REPAIR 2007 ventral hernia repair WRIST SURGERY Left 07/2017 hardware, fracture repair Tobacco Use: High Risk (02/27/2025) Patient History Smoking Tobacco Use: Every Day Smokeless Tobacco Use: Never Passive Exposure: Not on file Alcohol Use: Not At Risk (01/01/2022) AUDIT-C Frequency of Alcohol Consumption: Never Average Number of Drinks: Not on file Frequency of Binge Drinking: Not on file HEART VALVE COORDINATOR ASSESSMENT Age: 79 STS for Isolated AVR: Procedure Type: Isolated AVR Perioperative Outcome Estimate % Operative Mortality 4.51% Morbidity & Mortality 12% Stroke 3.48% Renal Failure 1.7% Reoperation 3.88% Prolonged Ventilation 9.02% Deep Sternal Wound Infection 0.137% Long Hospital Stay (>14 days) 4.95% Short Hospital Stay (<6 days)* 36.1% CHF Class: II/III BMI: 19.94 kg/m2 BSA: 1.47 m2 Risk for Surgery (2017 STS/ACC Consensus Document): Intermediate Frailty Assessments: Cotter ADL Bathing: Independent Dressing: Independent Toileting: Independent Transferring: Independent Continence: Independent Feeding: Independent Cotter Total Score:: 6 5 Meter Walk Trial Walk time, first trial (seconds): 5 Walk time, second trial (seconds): 6 Walk time, third trial (seconds): 6 Essential Frailty Tool Set Chair Rises: Five chair rises less than 15 seconds Cognitive Impairment: No cognitive impairment Hemoglobin: (Female) Hemoglobin greater than or equal to 12 Serum Albumin: Serum albumin greater than or equal to 3.5 EFT Total Score: 0 TAVR 1-Year Mortality: 6 % SAVR 1-Year Mortality: 3 % [place] Cardiomyopathy Questionnaire (KCCQ-12) KCCQ-12 Score: 62.5 EKG Results (past 7days) No results found for the last 196 hours. Cath: 03/09/2025 CONCLUSIONS: Severe lovelock vessel CAD - About 90-95% stenosis left main; chronic total occlusion ostial LAD; moderate to severe diffuse disease proximal segment of dominant LCX. RCA reported to be in small nondominant from previous angiogram. Patent SVG to dominant LCX/ LPDA; patent aortocoronary graft to LAD. Patent left subclavian artery History of EVAR Echo: 02/02/2025 LUIS MIGUEL: 0.8 cm2 Peak Gradient: 52 mmHg LUIS MIGUEL Index: 0.54 cm2/m2 Vmax: 3.59 m/s Mean Gradient: 34 mmHg EF: 60% Morphology: Tri-leaflet DVI: 0.26 Stroke Volume Index: 47.4 ml/m2 AR: Mild MR: Mild TR: Mild AK: Mild Severe Classification: CT TAVR: 03/21/2025 AA: 34.7 mm x 20.6 mm AV.3 mm Area: 391 mm2 Perimeter: 71.1 mm SoV: 38.4 mm x 26.8 mm x 26.8 mm STJ: 20.1 mm x 18.8 mm Lt Cor: 13.7 mm Rt Cor: 14.5 mm Aortic Valve Calcium Score: 1176 Agat[place], 972 mm3 Aortic Measurements: Ascendin.5 mm x 27.7 mm Descending: Distal: 11.0 mm x 9.9 mm Angle: 48 degrees Tortuosity: Mild, EVAR noted Vascular Measurements: RCI 10.7 mm LCI 8.6 mm LAUREL 6.7 mm LEI 6.9 mm RCF 6.5 mm LCF 6.2 mm R Carotid mm L Carotid mm PFT: 03/21/2025 03/21/25: normal spirometry , flow volume loop, lung volumes and oxygenation. Minimal reduction in the DLCO which normalizes in correlation to alveolar ventilation. Hui Terrazas MD [facility] Carotid Dopplers: 02/17/2025 CONCLUSIONS: 1. The right internal carotid artery disease is consistent with a less than 50% stenosis. 2. The left internal carotid artery disease is consistent with a less than 50% stenosis. 3. Normal, antegrade flow is noted in bilateral vertebral arteries. NOTES Patient seen by Heart Valve Receptionist for consult to the Heart Valve Program at [facility]. Frailty scales done at this time including KCCQ- 12, Cotter ADL, 5 Meter Walk Trials, and Essential Frailty Toolset. Process for TAVR vs SAVR evaluation explained to patient and TAVR and SAVR procedures explained. Education booklet given to patient. All questions answered at this time. Details regarding Frailty Scales are below this note. Patient Goals for Treatment: To have energy to do the things I want to do and not feel as tired all the time PLAN Appointment with Cardiothoracic Surgery today Patient will be presented before the Heart Team at Valve Conference documented in this encounter Plan of Treatment Not on file documented as of this encounter Visit Diagnoses Not on filedocumented in this encounter Care Teams Log Yard Derrick Operator Relationship Specialty Start Date End Date Narda Melgoza DO [address] [place] [address] PCP - General Family Medicine 02/15/25 Zion Lechuga MD Consulting Physician Cardiology 01/01/22 Juan David Ren MD [address] [place] [address] Surgeon Vascular Surgery 02/27/22 documented as of this encounter
--- OUTSIDE RECORDS SUMMARY | 2025-04-15 13:08 | XMS_ITS | Clinical Summary ---
Author Organization [facility] Address [address] [facility] [place] [facility] Attn: Epic Prelude ADT [place] [address] Care Team Providers Care Inside Channel Account Manager Name Role Phone Unavailable Primary Care Provider Unavailabl e Medications alirocumab (Praluent Pen) 75 mg/mL Pen Injector Inject 75 mg by subcutaneous injection every 2 weeks. 2 mL 11 09/22/2024 3:38 PM GROCERY CADDY 5 Active alirocumab (Praluent Pen) 75 mg/mL Pen Injector Inject 75 mg under the skin every 14 (fourteen) days 2 mL 11 02/09/2025 10:50 AM CDT 5 Active Encounters Date Type Department Care Team Description 03/29/2025 External Device Data STL ABSTRACTION Provider, Abstract from Last 3 Months Social History Tobacco [...] 1-dose 75+ series) 2022 INFLUENZA VACCINE (#1) 2025 Insurance RX AETNA Medicare Part D
--- OUTSIDE RECORDS SUMMARY | 2025-04-15 13:08 | XMS_ITS | Encounter Summary ---
Author Organization [facility] Address [address] [place] [address] Care Team Providers Care Logging Assistant Name Role Phone Zion Lechuga MD Unavailable [phone] Juan David Ren MD Unavailable [phone] Narda Melgoza DO Primary Care Provider [phone] Encounter Details Date Type Department Care Team (Late st Contact Info) Description 02/21/2025 Results Follow-Up [facility] Cardiology [address] [address] Deysi Iyer NP [address] [facility] [address], [place] [address] [place] Carotids Duplex Bilateral Social History Tobacco Use Types Packs/Day Years [...] on file 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 Gender Identity Not on file Sexual Orientation Not on file documented as of this encounter Plan of Treatment Not on file documented as of this encounter Visit Diagnoses Not on filedocumented in this encounter Care Teams Logging Assistant Relationship Specialty Start Date End Date Narda Melgoza DO [address] [facility] [place] [address] PCP - General Family Medicine 02/15/25 Zion Lechuga MD Consulting Physician Cardiology 01/01/22 Juan David Ren MD [address] [facility] [address] [address] [place] [address] Surgeon Vascular Surgery 02/27/22 documented as of this encounter
--- OUTSIDE RECORDS SUMMARY | 2025-04-15 13:09 | XMS_ITS | Clinical Summary ---
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 Gender Identity Not on file Sexual [...] P M CDT Height 158.8 cm (5' 2.5) 11/30/2018 2:03 PM CDT Body Mass Index 24.37 11/30/2018 2:03 PM CDT Plan of Treatment Health Maintenance Due Date Last Done Comments Hepatitis C Virus (HCV) Screening 1945 TdaP Immunization 1945 Pneumococcal Immunization (5 0+ years) (1 of 1 - PCV) 1997 Zoster Immunization (1 of 2) 1997 Respiratory Syncytial Virus (RSV) Immunization (Adult) (1 - 1-dose 75+ series) 2022 SARS-COV-2 Immunization ( - 2023- season) 2024 08/08/2021, 11/12/2020, 10/11/2020 Influenza Immunization (#1) 2025 Colonoscopy Discontinued 06/27/2015 Colorectal Cancer Screening Discontinued Cologuard Discontinued Hepatitis B Immunization Aged Out No longer eligible based on patient's age to complete this topic Human Papillomavirus (HPV) Immunization Aged Out No longer eligible based [...] Recently Relevant to Health Maintenance Care Teams Counter Waiter Relationship Specialty Start Date End Date Juan David Acosta MD PCP - General Family Medicine 08/03/15
--- OUTSIDE RECORDS SUMMARY | 2025-04-15 13:09 | XMS_ITS | Clinical Summary ---
Author Organization [facility] [address] Address [address] [place] [address] Care Team Providers Care Motorcycle Designer Name Role Phone Zion Lechuga MD Unavailable Juan David Ren MD Unavailable [phone] Narda Melgoza DO Primary Care Provider [phone] Allergies Active Allergy Reactions Criticality Noted Date Comments Bupivacaine-Lidocaine Other (See comments) Low 01/01/2022 Caused EKG changes, sent patient to emergency room, per patient cardiology stated everything was normal Doxycycline Itching Low Erythromycin Nausea only Low 07/27/2017 Erythromycin Base Unknown 11/23/2024 Sulfa Nausea only Low Sulfa (Sulfonamide Antibiotics) Nausea only Low Tetanus Immune Globulin Swelling Medium 11/23/2024 Tetanus Toxoid, Adsorbed Other (See comments) High 11/23/2024 Tetanus Vaccines And Toxoid Swelling,Edema Medium Medications aspirin (ASPIRIN LOW DOSE) 81 mg tablet [...] 6 (six) hours as needed 1 Active cukulwcrn-VW-vm etamin-guaifen [id number] mg tablet Take 1 tablet by mouth [...] EVERY DAY 90 tablet 1 4 Active ezetimibe (ZETIA) 10 mg tablet Take 1 tablet (10 mg total) by mouth daily 90 tablet 3 4 Active nitroglycerin (NITROSTAT) 0.4 mg SL tabletIndicatio ns:Coronary artery disease involving [place] coronary artery of [place] heart without angina pectoris PLACE 1 TABLET (0.4 MG TOTAL) UNDER THE TONGUE EVERY 5 (FIVE) MINUTES NEEDED FOR CHEST PAIN UP TO 3 DOSES, THEN CALL 911 75 tablet 1 5 Active amLODIPine (NORVASC) 10 mg tablet TAKE 1 TABLET BY MOUTH EVERY DAY 90 tablet [address] (CYMBALTA) 30 mg capsule Take 1 capsule (30 mg total) by mouth daily 5 Active varenicline tartrate (Chantix) 1 mg tabletIndicatio ns:Smoking Cessation Take 0.5 tablets (0.5 mg total) by mouth daily for 3 days, THEN 0.5 tablets (0.5 mg total) 2 (two) times a day for 4 days, THEN 1 tablet (1 mg total) 2 (two) times a day. Take with full glass of water. 160 tablet 05/18/20 25 Active Praluent Pen 75 mg/mL pen injector Active Active Problems Problem Noted Date Diagnosed Date Allergies 04/15/2025 Bilateral primary osteoarthritis of knee 025 Constipation 04/15/2025 Irritable bowel syndrome with constipation 04/15 Dermatitis 04/15/2025 Presence of aortocoronary bypass graft Familial hypercholesterolemia 04/15/2025 Gastro-esophageal reflux dis ease with esophagitis, without bleeding 04/15/2025 Geographic tongue 04/15/2025 Impacted cerumen, right ear 04/15/2025 Impaired fasting glucose 04/15/2025 Low back pain, unspecified 04/15/2025 Nicotine dependence, cigarettes, uncomplicated 0 04/15/2025 Osteoporosis 04/15/2025 Pain in mouth 04/15/2025 Right foot pain 04/15/2025 Skin ulcer of female breast 04/15/2025 Subareolar mass of left breast 04/15/2025 Tongue, fissured 04/15/2025 Vasomotor rhinitis 04/15/2025 Abdominal aortic aneurysm without rupture 2024 Atherosclerosis of aorta 04/15/2025 Atherosclerotic heart diseas e of [place] coronary artery without angina pectoris 04/15/2025 Essential (primary) hypertension 04/15/2025 Peripheral vascular disease, unspecified 025 Arthralgia 04/15/2025 Nonrheumatic aortic (valve) stenosis 04/15/2025 Current smoker 03/21/2025 Preop examination 03/21/2025 Severe aortic stenosis 02/21/2025 Bilateral carotid bruits 02/17/2023 AAA (abdominal aortic aneurysm) without rupture 01/06/2022 Assessment & Plan (03/24/2024 8:27 AM CDT): AAA status post EVAR. Stent graft in good position no endoleak. One year duplex. Mixed hyperlipidemia 12/17/2021 Assessment & Plan (04/06/2025 1:30 PM CDT): Hyperlipidemia chronic controlled. Continue Lipitor Assessment & Plan (03/24/2024 8:27 AM CDT): Hyperlipidemia chronic controlled. Continue current medical management with Lipitor. Assessment & Plan (04/01/2023 12:48 PM CDT): Hyperlipidemia chronic and controlled. Continue Lipitor. Abnormal stress test 12/17/2021 Myalgia 03/13/2020 Coronary artery disease invo lving [place] coronary artery of [place] heart without angina pectoris 09/05/2019 Nonrheumatic aortic valve stenosis 12/07/2018 AAA (abdominal aortic aneurysm) 12/07/2018 Assessment & Plan (04/06/2025 1:30 PM CDT): Status post EVAR. Duplex shows stent graft in good position no endoleak. Repeat duplex 1 year Assessment & Plan (04/01/2023 12:48 PM CDT): [...] proceed. Assessment & Plan (10/31/2020 8:54 AM NURSE INFORMATICIST): Stable 3.5 cm fusiform infrarenal abdominal aortic aneurysm. Continue 6 month duplex surveillance. No indication for further workup or intervention at this time. Left wrist fracture 11/30/2017 History of fundoplication 11/22/2016 Status post abdominal aortic aneurysm (AAA) repa ir 11/22/2016 Assessment & Plan (09/12/2022 2:58 PM NURSE INFORMATICIST): Patient is following up today for her [...] Overview (11/27/2016): HTN (hypertension) Assessment & Plan (04/06/2025 1:30 PM CDT): Hypertension chronic controlled. Continue current medical management Assessment & Plan (03/24/2024 8:27 AM CDT): Hypertension chronic controlled. Continue current medical management. Assessment & Plan (04/01/2023 12:45 PM CDT): Hypertension chronic and controlled. Continue current medical management. Assessment & Plan (12/06/2021 1:08 PM CDT): Hypertension chronic and controlled. Continue current medical therapy. Assessment & Plan (10/31/2020 8:54 AM NURSE INFORMATICIST): Per patient controlled. Continue medical therapy Tobacco use 05/23/2015 Overview (11/27/2016): Tobacco use Need for immunization against influenza 05/24/20 14 Positive antinuclear antibody 05/24/2014 Knee pain 05/24/2014 Resolved Problems Problem Noted Date Diagnosed Date Resolved Date Dyslipidemia 05/23/2015 12/17/2021 Overview (11/27/2016): Dyslipidemia Assessment & Plan (12/06/2021 1:08 PM CDT): Dyslipidemia chronic and controlled. Continue statin therapy. Assessment & Plan (10/31/2020 8:54 AM NURSE INFORMATICIST): Currently controlled. Continue statin therapy Encounters Date Type Department Care Team Description 04/15/2025 12:45 PM CDT Office Visit [facility] Care at [address] [phone] Kevin Ramirez NP Left facial swelling (Primary Dx); Erythema of face; Facial cellulitis 04/13/2025 Documentation Cardiothoracic Surgery Elena Pham, JORDON 04/07/2025 Orders Only [facility] Vascular and Vein Surgery [address] [facility] [address] [place] [phone] Juan David Ren MD Aftercare following surgery of the circulatory system (Primary Dx) 04/06/2025 1:15 PM CDT Office Visit [facility] Vascular and Vein Surgery [address] [facility] [address] [place] [phone] Juan David Ren MD Infrarenal abdominal aortic aneurysm (AAA) without rupture (Primary Dx); Primary hypertension; Mixed hyperlipidemia 04/03/2025 1:00 PM CDT Office Visit [facility] Medicine Surgery [address] [facility] [address] [place] [phone] Shiva Mcclellan MD Aortic valve stenosis, etiology of cardiac valve disease unspecified (Primary Dx) 03/27/2025 1:06 PM CDT - 03/27/2025 11:59 PM CDT Hospital Encounter [facility] Medical Office Building [address] [facility] [address] [address] Aftercare following surgery of the circulatory system Discharge Disposition: Discharge to home or self care 03/21/2025 8:32 AM CDT - 03/21/2025 11:59 PM CDT Hospital Encounter [facility] Respiratory [address] [place] [phone] Tobacco use; Current smoker; Preop examination Discharge Disposition: Discharge to home or self care 03/21/2025 7:28 AM CDT - 03/21/2025 11:59 PM CDT Hospital Encounter [facility] Imaging and Radiology [id number] [place] [address] Aortic stenosis, severe Discharge Disposition: Discharge to home or self care 03/13/2025 Orders Only Cardiology Emre Camejo MD Tobacco use (Primary Dx); Current smoker; Preop examination; Aortic stenosis, severe 03/09/2025 10:00 AM CDT - 03/09/2025 11:30 AM CDT Surgery [facility] Cardiac Catheterization Lab [address] [place] [phone] Emre Camejo MD RIGHT LEFT HEART CATHETERIZATION WITH CORONARY ANGIOGRAPHY GRAFT AND WITH OR WITHOUT LEFT VENTRICULOGRAPHY [id number] 03/09/2025 7:19 AM CDT - 03/09/2025 11:59 PM CDT Hospital Encounter [facility] Cardiac Catheterization Lab [address] [place] [phone] Nonrheumatic aortic valve stenosis Discharge Disposition: Discharge to home or self care 03/09/2025 7:19 AM CDT - 03/09/2025 3:01 PM CDT Hospital Encounter [facility] Cardiac Catheterization Lab [address] [place] [phone] Emre Camejo MD Nonrheumatic aortic valve stenosis; Severe aortic stenosis Discharge Disposition: Discharge to home or self care 02/27/2025 Telephone [facility] Medical Group Cardiology [address] [facility] [address] [place] [phone] Emre Camejo MD 02/23/2025 Telephone [facility] Medical Group Cardiology [address] [place] [address] [place] [phone] Emre Camejo MD 02/22/2025 Cardiology Conference [facility] Non-invasive Cardiac Diagnostic Testing [address] [place] [address] Benja Mckeon RN 02/21/2025 10:45 AM CDT Office Visit [facility] Cardiology [address] [place] [address] [place] [phone] Emre Camejo MD Nonrheumatic aortic valve stenosis (Primary Dx); Coronary artery disease involving [place] coronary artery of [place] heart without angina pectoris; S/P CABG x 3; Primary hypertension; Infrarenal abdominal aortic aneurysm (AAA) without rupture; Status post endovascular aneurysm repair (EVAR); Tobacco use 02/21/2025 Results Follow-Up [facility] Cardiology [address] [place] [address] [place] [phone] Deysi Iyer NP US Carotids Duplex Bilateral 02/21/2025 Telephone [facility] Cardiology [address] [place] [address] [place] [phone] Emre Camejo MD 02/17/2025 2:00 PM CDT Ancillary Procedure [facility] Vascular and Vein Surgery at [address] [place] [address] Bilateral carotid bruits 02/15/2025 3:00 PM CDT Office Visit [facility] Cardiology [address] [place] [address] [place] [phone] Marcel Brambila MD Nonrheumatic aortic valve stenosis (Primary Dx); Bilateral carotid bruits; Coronary artery disease involving [place] coronary artery of [place] heart without angina pectoris; History of coronary artery bypass surgery; Primary hypertension 02/03/2025 Results Follow-Up [facility] Cardiology [address] [place] [address] [place] [phone] Becky Shelby NP Transthoracic Echo (TTE) Complete W Doppler/CF 02/02/2025 2:00 PM CDT Ancillary Procedure [place] [address] [place] [phone] Nonrheumatic aortic valve stenosis from Last 3 Months Immunizations Immunization Administration Dates Next Due Influenza, Quadrivalent, Hig h Dose, Preservative Free, Intrr 06/21/2020 Influenza, Trivalent, High D ose, Split, Preservative Free, Intramuscular 06/02/2024,09/01/2023 Influenza, Trivalent, IM (MDV) 05/24/2014 Influenza, Unspecified 05/08/2016 Moderna SARS-CoV-2 Monovalent Vaccination (12+ Y RS) 10/11/2020 Pneumococcal Conjugate PCV 13 08/27/2017 Pneumococcal Polysaccharide PPV23 10/21/2018 ZOSTER LIVE 08/07/2020,04/27/2020 ZOSTER Recombinant 08/07/2020,04/27/2020 Surgical History Surgery Date Site/Laterality Comments CATARACT EXTRACTION cataract removal CORONARY ARTERY BYPASS GRAFT 08/24/1995 - 08/23/1996 Coronary Artery Bypass Graft CARDIAC CATHETERIZATION 08/24/1995 - 08/23/1996 VENTRAL HERNIA REPAIR 08/24/2007 - 08/23/2008 ventral hernia repair HIATAL HERNIA REPAIR 08/24/2015 - 08/23/2016 nissum fundiplication WRIST SURGERY 07/24/2017 - 08/23/2017 Left hardware, fracture repair ENDOSCOPIC AORTIC REPAIR 01/06/2022 PEVAR ABDOMINAL AORTIC ANEURYSM REPAIR CARDIAC CATHETERIZATION 03/09/2025 N/A Procedure: RIGHT LEFT HEART CATHETERIZATION WITH CORONARY ANGIOGRAPHY GRAFT AND WITH OR WITHOUT LEFT VENTRICULOGRAPHY [id number]; Surgeon: Emre Camejo MD; Location: CARDIAC HYDRATION PLANT OPERATOR; Service: Cardiovascular; Laterality: N/A; ARA w/ LHC 03/09 at 10 Medical devices from this surgery are in the Medical Devices section. CARDIAC CATHETERIZATION 03/09/2025 N/A Procedure: ULTRASOUND GUIDANCE FOR VASCULAR ACCESS S&I 00307; Surgeon: Emre Camejo MD; Location: CARDIAC HYDRATION PLANT OPERATOR; Service: Cardiovascular; Laterality: N/A; Medical devices from this surgery are in the Medical Devices section. AORTOGRAM 03/09/2025 Groin Procedure: AORTOGRAM; Surgeon: Emre Camejo MD; Location: CARDIAC HYDRATION PLANT OPERATOR; Service: Cardiovascular;; Medical devices from this surgery are in the Medical Devices section. CARDIAC CATHETERIZATION 03/09/2025 N/A Procedure: SELECTIVE CATH SUBCLAVIAN OR INNOMINATE ARTERY, UNILATERAL [address]6748; Surgeon: Emre Camejo MD; Location: CARDIAC HYDRATION PLANT OPERATOR; Service: Cardiovascular; Laterality: N/A; Medical devices from this surgery are in the Medical Devices section. Medical History Medical History Date Comments Anxiety disorder anxiety Osteoarthritis osteoarthritis Gastroesophageal reflux disease GERD Chronic coronary artery disease Coronary Artery Disease Aortic stenosis Hypertension Hyperlipidemia Insomnia Osteoporosis Arthritis joint pain Neuropathy AAA (abdominal aortic aneurysm) Severe aortic stenosis Family History Medical History Relation Name Comments [...] Tobacco: Never Tobacco Cessation:Ready to Q uit: Yes; Counseling Given: Yes Alcohol Use Standard Drinks/Week [...] on file Legal Sex Female 9:26 PM NURSE INFORMATICIST Gender Identity Not on file Sexual Orientation [...] (110 lb) 04/15/2025 11:51 AM CDT Height 157.5 cm (5' 2) 04/06/2025 1:03 PM CDT Body Mass Index 20.12 04/06/2025 1:03 PM CDT Plan of Treatment Health Maintenance Due Date Last Done Comments Depression Screening 1945 Hepatitis C Screening 1945 Osteoporosis Screening-Bone Density Scan 1945 DTaP/Tdap/Td Vaccine (1 - Tdap) 1958 Hepatitis B Screening 1965 Well Visit 65+ 2012 Covid-19 Vaccine (4 - 2023-2 5 season) 2024 08/08/2021, 11/12/2020, 10/11/2020 Influenza Vaccine (#1) 2025 , 09/01/2023, 06/21/2020, Additional history exists Fall Risk Assessment 03/09/2026 03/09/2025, 12/18/19 Pneumococcal vaccine 65+ Completed 10/21/2018, 11/2017 Zoster Vaccine Completed 08/07/2020, 07/24, 04/27/2020, Additional history exists Medical Devices Implanted Type Area Landing Support Specialist Device Identifier Shelf Expiration Date Model / Serial / Lot [employer] Bethel Viabahn 11mm 16sq Mm 8fr 59mm 135cm Balloon Expandable [id number] - [id number] - [id number] Implanted:Qty: 1 on 01/06/2022 by Juan David Ren MD at [facility] Endoprosthesis [employer] 05/10/2022 [id number] / [id number] / [employer] [id number] Excluder 12mm 23mm 12cm 5.5cm Conformable Active Control Trunk - [id number] - [id number] Implanted:Qty: 1 on 01/06/2022 by Juan David Ren MD at [facility] Endoprosthesis N/A: Aorta [employer] [id number] 10/02/2024 [id number] / [id number] / [employer] Bethel Excluder 12mm 10cm Contralateral Leg Graft Endovascular [id number] - [id number] - [id number] Implanted:Qty: 1 on 01/06/2022 by Juan David Ren MD at [facility] Endoprosthesis Right: Iliac [employer] [id number] 10/20/2024 [id number] / [id number] / [employer] Excluder 12mm 7cm Stent Photostat Operator Helper Seal Cuff Iliac Graft [id number] - [id number] - [id number] Implanted:Qty: 1 on 01/06/2022 by Juan David Ren MD at [facility] Endoprosthesis Left: Iliac [employer] [id number] 03/23/2024 [id number] / [employer] Bethel Viabahn 11mm 16sq Mm 8fr 59mm 135cm Balloon Expandable [id number] - [id number] - [id number] Implanted:Qty: 1 on 01/06/2022 by Juan David Ren MD at [facility] Endoprosthesis [employer] [id number] 11/01/2024 [id number] 02 / [id number] / Perclose 6fr Vascular Closure 49785-53 - [id number] Implanted:Qty: 1 on 01/06/2022 by Juan David Ren MD at [facility] [employer] 09/23/2023 58548-4 3 / / Perclose 6fr Vascular Closure 44417-99 - [id number] Implanted:Qty: 1 on 01/06/2022 by Juan David Ren MD at [facility] [employer] 09/23/2023 [id number] 3 / / Perclose 6fr Vascular Closure 99939-63 - [id number] Implanted:Qty: 1 on 01/06/2022 by Juan David Ren MD at [facility] [employer] 09/23/2023 11152-1 3 / / Perclose 6fr Vascular Closure 32523-92 - [id number] Implanted:Qty: 1 on 01/06/2022 by Juan David Ren MD at [facility] [employer] 09/23/2023 57082-2 3 / / Access [employer]osure [employer] Device Vascular Closure Femoral Arterial Access 2 Mode Polyethylene Glycol Mynx Control 5fr [id number] - [id number] Implanted:Qty: 1 on 03/09/2025 by Emre Camejo MD at [facility] [employer] [id number] / / Procedures Procedure Name Priority Date/Time Associated Diagnosis Comments US DUPLEX SCAN OF AORTA: INFERIOR VENA CAVA, ILIAC, COMPLETE Routine 03/27/2025 1:44 PM CDT Aftercare following surgery of the circulatory system PULMONARY FUNCTION TEST (PFT) Routine 03/21/2025 9:25 AM CDT Tobacco use Current smoker Preop examination CT TAVR Schedule Routine, Read Routine (OP Routine) 03/21/2025 8:22 AM CDT Aortic stenosis, severe CV HYBRID ROOM (DEFAULT ORDERABLE) Routine 03/09/2025 11:36 AM CDT Nonrheumatic aortic valve stenosis Severe aortic stenosis [facility] SBCLVIAN ART [address] Routine 03/09/2025 11:36 AM CDT Nonrheumatic aortic valve stenosis Severe aortic stenosis RIGHT LEFT HEART CATHETERIZATION CORONARY GRAFT WITH WITHOUT LEFT VENTRICULOGRAPHY ANGIOGRAM Routine 03/09/2025 11:36 AM CDT Nonrheumatic aortic valve stenosis Severe aortic stenosis VASCULAR ACCESS US GUIDANCE Routine 03/09/2025 11:36 AM CDT Nonrheumatic aortic valve stenosis Severe aortic stenosis MODERATE SEDATION 03/09/2025 10:18 AM CDT Nonrheumatic aortic valve stenosis Severe aortic stenosis Case Notes ARA in pre-procedure TRANSTHORACIC ECHO (TTE) LIMITED/FOLLOW UP W LTD DOPPLER/CF WO CONTRAST Routine 03/09/2025 10:04 AM CDT Nonrheumatic aortic valve stenosis EGFR Routine 03/09/2025 8:41 AM CDT DIFFERENTIAL AUTO Routine 03/09/2025 8:4 1 AM CDT CBC WITH AUTO DIFFERENTIAL Routine 03/09/2025 8:41 AM CDT BASIC METABOLIC PANEL Routine 03/09/2025 8:41 AM CDT ELECTROCARDIOGRAM REPORT Routine 02/21/2025 4:28 PM CDT S/P CABG x 3 POCT LIPID PANEL Routine 02/21/2025 10:48 AM CDT Nonrheumatic aortic valve stenosis US CAROTIDS DUPLEX BILATERAL Schedule Routine, Read Routine (OP Routine) 02/17/2025 2:31 PM CDT Bilateral carotid bruits TRANSTHORACIC ECHO (TTE) COMPLETE W DOPPLER/CF WO CONTRAST Routine 02/02/2025 3:08 PM CDT Nonrheumatic aortic valve stenosis from Last 3 Months Results * US Duplex Scan of Aorta; Inferior Vena Cava, Iliac, Complete (03/27/2025 1:44 PM CDT) Anatomical Region Laterality Modality Vascular Ultrasound 03/27/2025 1:10 PM CDT Narrative 03/27/2025 3:58 PM CDT Abdominal Aortic Duplex Ultrasound Report Patient Name: LISA ALONZO L : 1945 Study Date: 03/27/2025 1:10:29 PM Gender: F Sequins Stringer: Sarai Alegre Provider: JUAN DAVID REN Quality: Adequate Order Provider: JUAN DAVID REN PROCEDURES: Arterial Report: Abdominal Aorta Stent Graft Duplex. INDICATIONS: Z48.812 Encounter for surgical aftercare following surgery on the circulatory system. HISTORY: Endovascular aneurysm repair. COMPARISONS: The previous exam was completed on 03/23/24. MEASUREMENTS: Velocities Value Diameters Value Aorta Prx PSV 170/25 cm/sec Aorta Prx Trans Dim 1.9 x 1.6 cm Aorta Mid PSV 142/29 cm/sec Aorta Mid Trans Dim 3.4 x 3.5 cm Rt Com Iliac Prx PSV 116.00 cm/sec Rt Com Iliac Dst PSV 135.00 cm/sec Lt Com Iliac Prx PSV 127.00 cm/sec Lt Com Iliac Dst PSV 137.00 cm/sec MEASUREMENTS: FINDINGS: Study Quality: Adequate. Abdominal Aorta: Infrarenal abdominal aortic aneurysm measurin.4 x 3.5 cm. 2D and color Doppler demonstrate no evidence of endoleak. CONCLUSIONS: 1. Findings suggest continued patency of the previously placed stent. 2. 2D and color Doppler demonstrate no evidence of endoleak. ATTESTATION: I have reviewed and interpreted the pertinent images and measurements of this study. I attest to the conclusions in the final report that is provided above. Electronically Signed By: Juan David Ren MD 03/27/2025 2:43:39 PM CDT Procedure Note Juan David Ren MD - 03/27/2025 Abdominal Aortic Duplex Ultrasound Report Patient Name: LISA ALONZO L : 1945 Study Date: 03/27/2025 1:10:29 PM Gender: F Sequins Stringer: Sarai Alegre Provider: JUAN DAVID REN Quality: Adequate Order Provider: JUAN DAVID REN PROCEDURES: Arterial Report: Abdominal Aorta Stent Graft Duplex. INDICATIONS: Z48.812 Encounter for surgical aftercare following surgery on thecirculatory system. HISTORY: Endovascular aneurysm repair. COMPARISONS: The previous exam was completed on 03/23/24. MEASUREMENTS: Velocities Value Diameters Value Aorta Prx PSV 170/25 cm/sec Aorta Prx Trans Dim 1.9 x 1.6 cm Aorta Mid PSV 142/29 cm/sec Aorta Mid Trans Dim 3.4 x 3.5 cm Rt Com Iliac Prx PSV 116.00 cm/sec Rt Com Iliac Dst PSV 135.00 cm/sec Lt Com Iliac Prx PSV 127.00 cm/sec Lt Com Iliac Dst PSV 137.00 cm/sec MEASUREMENTS: FINDINGS: Study Quality: Adequate. Abdominal Aorta: Infrarenal abdominal aortic aneurysm measurin.4 x 3.5 cm. 2D and colorDoppler demonstrate no evidence of endoleak. CONCLUSIONS: 1. Findings suggest continued patency of the previously placed stent. 2. 2D and color Doppler demonstrate no evidence of endoleak. ATTESTATION: I have reviewed and interpreted the pertinent images and measurements ofthis study. I attest to the conclusions in the final report that is provided above. Electronically Signed By: Juan David Ren MD 03/27/2025 2:43:39 PM CDT us Juan David Ren MD IMG US PROCEDURES Final Re sult * Pulmonary Function Test -[facility]; Complete/Full (03/21/2025 9:25 AM CDT) Anatomical Region Laterality Modality PFT Narrative 03/21/2025 4:13 PM CDT 03/21/25: normal spirometry , flow volume loop, lung volumes and oxygenation. Minimal reduction in the DLCO which normalizes in correlation to alveolar ventilation. Hui Terrazas MD [facility] Emre Camejo MD PFT ORDERABLES Final Result * CT TAVR (03/21/2025 8:22 AM CDT) Anatomical Region Laterality Modality Chest N/A Computed Tomogra phy 03/21/2025 1:42 PM CDT Impressions 03/22/2025 7:12 AM CDT 1. Aortic annulus, and abdominal aortic, common iliac, external iliac and femoral artery measurements in preparation for TAVR procedure as described above. 2. Aortic valve calcium score: Agatston 734, Volume 575 mm3. Dictated by: Mervin Tang MD The radiology attending physician has personally reviewed this study, and had reviewed and/or edited this written report and agrees with it. Electronically signed by: Paula Patino M.D. Narrative 03/22/2025 7:12 AM CDT EXAMINATION: Heart CT and CTA abdomen and pelvis with contrast. History: Severe aortic stenosis, pre-TAVR procedure. Technique: Heart CT and CT angiogram of the abdomen and pelvis performed during administration of 118 mL of Optiray 350, intravenously per TAVR Protocol. Images were transferred to an independent workstation for additional 3D post-processing. FINDINGS: Annulus and Thoracic Aortic Measurements (in systole): Aortic valve annulus: Area 415 mm2: circumference 74 mm; 27 mm maximum diameter x 20 mm minimum diameter. Sinuses of Valsalva: Left 28 mm; right 27 mm; noncoronary 28 mm Sinotubular junction: 21 mm diameter sagittal x 21 mm diameter coronal. Aortic valve calcium score: Agatston 734, Volume 575mm3. Coronary sinus heights: Right coronary sinus height: 20 mm Left coronary sinus height: 21 mm Non-coronary sinus height: 21 mm There is Mild left ventricular outflow tract calcification. There is Moderate mitral annular calcification. Distance to RCA ostium from aortic valve annulus: 15 mm Distance to left main ostium from annulus: 14 mm Deployment angle: 25 SCOTTISH, 0 Caudal Coronary Arteries: Coronary artery bypass grafts which are patent. Abdominal Aortic and Pelvic Arterial Smallest Diameter Measurements (made from centerline curved MPRs): Infrarenal aorta: 11 mm x 10 mm Right common iliac artery: 11 mm x 11 mm. There is Mild calcification. Left common iliac artery: 9 mm x 8 mm . The majority of the left common iliac artery is stented. There is Mild tortuosity of the bilateral common iliac arteries. This is equal in distribution. Right external iliac artery: 7 mm x 6 mm. There is Mild calcification. Left external iliac artery: 7 mm x 5 mm. There is Mild calcification. There is Mild tortuosity of the bilateral external iliac arteries. This is equal in distribution. Right common femoral artery: 7 mm. There is Mild calcification. Left common femoral artery: 8 mm. There is Mild calcification. There is Mild tortuosity of the bilateral femoral arteries. This is equal in distribution. Other findings: Biapical pleuroparenchymal scarring. No suspicious pulmonary nodule. No pleural effusion or pneumothorax. Right heart is mildly enlarged. No pericardial effusion. Postsurgical changes of three-vessel coronary artery bypass graft which are patent. 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 The left internal mammary artery graft is 11 mm deep to the sternum. There is thickening and mild calcification of the aortic valve. Median sternotomy wires are aligned and intact. No thoracic lymphadenopathy. Postsurgical changes of hiatal hernia repair. Multiple simple hepatic cysts. Spleen, pancreas, adrenal glands are normal. Bilateral simple renal cysts with additional hypodensities which are to small to characterize but likely additional cysts. Kidneys enhance symmetrically without hydronephrosis. Urinary bladder is decompressed. Pelvic floor relaxation. No bowel obstruction. No ascites or pneumoperitoneum. No abdominal or pelvic lymphadenopathy. Stented infrarenal abdominal aortic aneurysm measuring 3.1 x 3.1 cm, unchanged from 2022. Multilevel degenerative changes of the thoracolumbar spine without suspicious osseous lesion. Procedure Note Paula Patino MD - 03/22/2025 EXAMINATION: Heart CT and CTA abdomen and pelvis with contrast. History: Severe aortic stenosis, pre-TAVR procedure. Technique: Heart CT and CT angiogram of the abdomen and pelvis performed during administration of 118 mL of Optiray 350, intravenously per TAVR Protocol. Images were transferred to an independent workstation for additional 3D post-processing. FINDINGS: Annulus and Thoracic Aortic Measurements (in systole): Aortic valve annulus: Area 415 mm2: circumference 74 mm; 27 mm maximum diameter x 20 mm minimum diameter. Sinuses of Valsalva: Left 28 mm; right 27 mm; noncoronary 28 mm Sinotubular junction: 21 mm diameter sagittal x 21 mm diameter coronal. Aortic valve calcium score: Agatston 734, Volume 575mm3. Coronary sinus heights: Right coronary sinus height: 20 mm Left coronary sinus height: 21 mm Non-coronary sinus height: 21 mm There is Mild left ventricular outflow tract calcification. There is Moderate mitral annular calcification. Distance to RCA ostium from aortic valve annulus: 15 mm Distance to left main ostium from annulus: 14 mm Deployment angle: 25 SCOTTISH, 0 Caudal Coronary Arteries: Coronary artery bypass grafts which are patent. Abdominal Aortic and Pelvic Arterial Smallest Diameter Measurements (made from centerline curved MPRs): Infrarenal aorta: 11 mm x 10 mm Right common iliac artery: 11 mm x 11 mm. There is Mild calcification. Left common iliac artery: 9 mm x 8 mm . The majority of the left common iliac artery is stented. There is Mild tortuosity of the bilateral common iliac arteries. This is equal in distribution. Right external iliac artery: 7 mm x 6 mm. There is Mild calcification. Left external iliac artery: 7 mm x 5 mm. There is Mild calcification. There is Mild tortuosity of the bilateral external iliac arteries. This is equal in distribution. Right common femoral artery: 7 mm. There is Mild calcification. Left common femoral artery: 8 mm. There is Mild calcification. There is Mild tortuosity of the bilateral femoral arteries. This is equal in distribution. Other findings: Biapical pleuroparenchymal scarring. No suspicious pulmonary nodule. No pleural effusion or pneumothorax. Right heart is mildly enlarged. No pericardial effusion. Postsurgical changes of three-vessel coronary artery bypass graft which are patent. 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 The left internal mammary artery graft is 11 mm deep to the sternum. There is thickening and mild calcification of the aortic valve. Median sternotomy wires are aligned and intact. No thoracic lymphadenopathy. Postsurgical changes of hiatal hernia repair. Multiple simple hepatic cysts. Spleen, pancreas, adrenal glands are normal. Bilateral simple renal cysts with additional hypodensities which are to small to characterize but likely additional cysts. Kidneys enhance symmetrically without hydronephrosis. Urinary bladder is decompressed. Pelvic floor relaxation. No bowel obstruction. No ascites or pneumoperitoneum. No abdominal or pelvic lymphadenopathy. Stented infrarenal abdominal aortic aneurysm measuring 3.1 x 3.1 cm, unchanged from 2022. Multilevel degenerative changes of the thoracolumbar spine without suspicious osseous lesion. IMPRESSION: 1. Aortic annulus, and abdominal aortic, common iliac, external iliac and femoral artery measurements in preparation for TAVR procedure as described above. 2. Aortic valve calcium score: Agatston 734, Volume 575 mm3. Dictated by: Mervin Tang MD The radiology attending physician has personally reviewed this study, and had reviewed and/or edited this written report and agrees with it. Electronically signed by: Paula Patino M.D. us Emre Camejo MD IMG CT PROCEDURES Final Result * VASCULAR ACCESS US GUIDANCE, RIGHT LEFT HEART CATHETERIZATION CORONARY GRAFT WITH WITHOUT LEFT VENTRICULOGRAPHY ANGIOGRAM, [id number] (03/09/2025 11:36 AM CDT) Anatomical Region Laterality Modality X-Ray Angiograph y Addenda Addendum by Emre Camejo MD on 03/09/2025 12:12 PM CDT CORONARY AND BYPASS GRAFT ANGIOGRAPHY REPORT DATE OF PROCEDURE: 03/09/25 INDICATION FOR PROCEDURE: Severe aortic stenosis, pre-AVR cardiac catheterization and bypass graft Angiography BRIEF CLINICAL HISTORY: Lisa Alonzo is a 79 y.o. female with CAD, history of remote CABG x3 in 1995 at [facility] (unknown grafts, operative report not available); aortic stenosis, infrarenal AAA status post EVAR on 01/06/2022 at [facility], hypertension, anxiety, heavy tobacco abuse. Patient has aortic stenosis with recent echo from 02/02/2025 reportedly showing normal LVEF, calcified aortic valve, V max 3.6 m/sec, relatively low mean gradient 34 mmHg, LUIS MIGUEL 0.8 cm2. Patient has sedentary lifestyle. She has dyspnea on exertion, was unable to quantify the distance. Patient and her family were willing to proceed with pre TAVR workup. She was brought to the catheter finisher and inspector today, and had repeat focused TAVR echo performed which showed preserved LV systolic function, calcified aortic valve with restricted leaflet mobility. Severe aortic stenosis with relatively low mean gradient. V max 3.5 m/sec. Mean gradient 30 mmHg. DVI 0.25. Valve area 0.8 cm2. Mild aortic regurgitation. Patient was subsequently brought to the catheter finisher and inspector for coronary and bypass graft Angiography. Patient has remote history of CABG. Operative report not available. However, patient brought picture of the cardiac catheterization along with the cardiac catheterization diagram on her office visit which indicates that she had cardiac catheterization done on 10/21/1995 whichreportedly showed 50% left main stenosis, 95% stenosis proximal LAD, dominant LCX with minor irregularities, small nondominant RCA. Patient does not recall repeat cardiac catheterization after CABG. Benefits and risks of the procedure were discussed with the patient in depth, and informed consent was taken prior to the procedure. Risks of the procedure include but are not limited to vascular complications like groin hematoma, retroperitoneal bleed, vessel perforation; periprocedural FL, cardiac arrhythmias, stroke, contrast induced nephropathy, and . After discussing all the benefits, risks and alternatives, patient was willing to proceed with the procedure. PROCEDURES PERFORMED: Selective left and right coronary angiogram Aortogram Selective bypass graft Angiography Selective left subclavian angiogram Ultrasound-guided right common femoral access (CPT 91400) Moderate sedation-CPT code 47030 MODERATE SEDATION: Midazolam 2 mg , Fentanyl 50 mcg, start time 1041 stop time 1136, total direct [id number] monitoring of conscious sedation 55 minutes (CPT 40870) TRAINED OBSERVER: Calvin Garvin RN was trained observer for moderate sedation. ACCESS SITE: Right common femoral artery PROCEDURE: After obtaining informed consent, patient was brought to the catheter finisher and inspector and prepped and draped in the usual sterile manner. Time-out and immediate reassessment of the patient was performed. After local anesthesia with lidocaine, right common femoral artery access was taken with micropuncture needle under ultrasound guidance followed by insertion of a 5 Niuean sheath, which was later changed to 45 cm 5 Niuean sheath due to presence of aortoiliac graft, to facilitate coronary angiogram. Selective left coronary angiogram was performed using 5 Niuean JL 3.5 diagnostic catheter. RCA is known to be small nondominant from previous cardiac catheterization, and was not visualized on today's angiogram. Selective aortocoronary bypass graft Angiography was performed using 5 Niuean JR4 diagnostic catheter. Aortogram was performed using JR catheter while attempting to engage aortocoronary grafts. The same catheter was withdrawn and was positioned towards left subclavian artery, selective left subclavian angiogram was performed. The origin of the subclavian artery is tortuous due to the unfavorable aortic arch. Access site hemostasis was achieved with Mynx vascular closure device. Patient tolerated procedure well without any immediate procedure related complications. Estimated blood loss was minimal. All specimens removed. The angiographic and other findings are given below. FINDINGS: [place] CORONARY ARTERIES: LEFT CORONARY SYSTEM: There is high-grade about 90-95% stenosis in the mid -distal left main coronary artery. LAD has chronic total occlusion at its origin. Left circumflex artery is a dominant, large caliber vessel with [id number] diffuse disease in the proximal segment. The vessel is supplied by patent SVG. Retrograde filling of the graft seen on the left coronary angiogram. RIGHT CORONARY ARTERY: Not visualized, reported to be nondominant from previous cardiac catheterization. BYPASS GRAFT ANGIOGRAPHY: SVG TO LPDA: Large caliber graft, patent, anastomosed to LPDA. There is retrograde filling of the LCX. The [place] LPA after anastomosis is a large caliber vessel without significant focal stenosis. AORTOCORONARY GRAFT: Appears to be arterial graft, patent, anastomosed to LAD, no significant focal stenosis. The [place] vessel after anastomosis is a small to medium caliber vessel. LEFT SUBCLAVIAN ARTERY: Patent LEFT VENTRICULOGRAM: not performed HEMODYNAMIC ASSESSMENT: Opening pressure 138/92 mmHg, closing pressure 147/84 mmHg. CONCLUSIONS: Severe [place] vessel CAD - About 90-95% stenosis left main; chronic total occlusion ostial LAD; moderate to severe diffuse disease proximal segment of dominant LCX. RCA reported to be in small nondominant from previous angiogram. Patent SVG to dominant LCX/ LPDA; patent aortocoronary graft to LAD. Patent left subclavian artery History of EVAR PLAN/RECOMMENDATIONS: patient will undergo additional workup including CTA chest, abdomen and pelvis, and heart team evaluation before consideration for AVR. Feasibility of transfemoral versus alternative access TAVR to be determined. Voice recognition software was used to complete this document, therefore, cow trimmer variances may occur. Emre Camejo MD, [facility] 03/09/25 us Emre Camejo MD CV CARDIAC CATH PROCEDURES Edite d Result - Final * TRANSTHORACIC ECHO (TTE) LIMITED/FOLLOW UP W LTD DOPPLER/CF WO CONTRAST (03/09/2025 10:04 AM CDT) EF Mod BP 55 % CONS SCIMAGE Anatomical Region Laterality Modality Ultrasound 03/09/2025 9:48 AM CDT Narrative 03/09/2025 11:56 [place] [address] Limited Echocardiogram Report Patient Name: LISA ALONZO L : 1945 Study Date: 03/09/2025 9:48:55 AM Gender: F Tech: RF Location: [id number] Ref Provider: EMRE CAMEJO Height(Cm): 158 BSA: 1.48 Weight(Kg): 50 Heart Rate: 70 BP: 147 / 65 Quality: Good Order Provider: EMRE CAMEJO PROCEDURES: Echocardiographic Report: Limited transthoracic echocardiogram with 2D and M-Mode. INDICATIONS: I35.0 Nonrheumatic aortic (valve) stenosis. MEASUREMENTS: 2D/MM Value Range Doppler Value Range EF Mod BP 55 % [ 54 - 74 ] AV Mean PG 28 mmHg AV Peak Cole 3.52 m/s [ 1.00 - 1.70 ] AV VTI 86.85 cm LVOT Diam 1.79 cm LVOT Peak Cole 0.95 m/s [ 0.70 - 1.10 ] LVOT VTI 26.99 cm SI LVOT 47.4 ml/m2 [ >= 35.0 ] 2D/MM Value Range Doppler Value Range - FINDINGS: Atrial Septum: Normal atrial septum. Aorta: Moderate aortic root calcification. Left Ventricle: Normal left ventricular size. Mild concentric left ventricular hypertrophy. Left ventricular systolic function at the lower limit of normal. Left Atrium: There is mild enlargement of left atrium. Right Ventricle: Normal right ventricular size. Normal right ventricular systolic function. Right Atrium: The right atrium is normal in size. Aortic Valve: Severe aortic stenosis. Consider referral to Structural Heart Team for valve evaluation. Mean gradient of 30.0 mmHg. Valve area of 0.8 cm2. Aortic cusps appear severely calcified. Mild aortic valve regurgitation. Mitral Valve: Mitral valve leaflets appear mildly thickened. Moderate mitral annular calcification. Pulmonic Valve: Normal structure of the pulmonic valve. Tricuspid Valve: Normal structure of the tricuspid valve. Pericardium: Normal pericardium with no significant pericardial effusion. CONCLUSIONS: Limited echo with Doppler. Normal left ventricular size. Mild left ventricular hypertrophy. Left ventricular systolic function at the lower limit of normal. LVEF about 55%. Normal right ventricular size and systolic function. Mild enlargement of left atrium. Mitral valve leaflets appear mildly thickened. Moderate mitral annular calcification. Aortic valve appears calcified with restricted leaflet mobility. Severe aortic stenosis with relatively low mean gradient. V max 3.5 m/sec. Mean gradient 30 mmHg. DVI 0.25. Valve area 0.8 cm2. Mild aortic regurgitation. Electronically Signed By: Emre Camejo MD, [facility] 03/09/2025 11:55:42 AM CDT Procedure Note Emre Camejo MD - 03/09/2025 [place] [address] Limited Echocardiogram Report Patient Name: LISA ALONZO L : 1945 Study Date: 03/09/2025 9:48:55 AM Gender: F Tech: Location: [facility] Ref Provider: EMRE CAMEJO Height(Cm): 158 BSA: 1.48 Weight(Kg): 50 Heart Rate: 70 BP: 147 / 65 Quality: Good Order Provider: EMRE CAMEJO PROCEDURES: Echocardiographic Report: Limited transthoracic echocardiogram with 2D and M-Mode. INDICATIONS: I35.0 Nonrheumatic aortic (valve) stenosis. MEASUREMENTS: 2D/MM Value Range Doppler ValueRange EF Mod BP 55 % [ 54 - 74 ] AV Mean PG 28 mmHg AV Peak Cole 3.52 m/s [ 1.00 - 1.70 ] AV VTI 86.85 cm LVOT Diam 1.79 cm LVOT Peak Cole 0.95 m/s [ 0.70 - 1.10 ] LVOT VTI 26.99 cm SI LVOT 47.4 ml/m2 [ >= 35.0 ] 2D/MM Value Range Doppler ValueRange - FINDINGS: Atrial Septum: Normal atrial septum. Aorta: Moderate aortic root calcification. Left Ventricle: Normal left ventricular size. Mild concentric left ventricularhypertrophy. Left ventricular systolic function at the lower limit of normal. Left Atrium: There is mild enlargement of left atrium. Right Ventricle: Normal right ventricular size. Normal right ventricular systolicfunction. Right Atrium: The right atrium is normal in size. Aortic Valve: Severe aortic stenosis. Consider referral to Structural Heart Team forvalve evaluation. Mean gradient of 30.0 mmHg. Valve area of 0.8 cm2. Aortic cusps appearseverely calcified. Mild aortic valve regurgitation. Mitral Valve: Mitral valve leaflets appear mildly thickened. Moderate mitral annularcalcification. Pulmonic Valve: Normal structure of the pulmonic valve. Tricuspid Valve: Normal structure of the tricuspid valve. Pericardium: Normal pericardium with no significant pericardial effusion. CONCLUSIONS: Limited echo with Doppler. Normal left ventricular size. Mild leftventricular hypertrophy. Left ventricular systolic function at the lower limit ofnormal. LVEF about 55%. Normal right ventricular size and systolic function. Mild enlargement of left atrium. Mitral valve leaflets appear mildly thickened. Moderate mitral annularcalcification. Aortic valve appears calcified with restricted leaflet mobility. Severeaortic stenosis with relatively low mean gradient. V max 3.5 m/sec. Mean gradient 30 mmHg.DVI 0.25. Valve area 0.8 cm2. Mild aortic regurgitation. Electronically Signed By: Emre Camejo MD, [facility] 03/09/2025 11:55:42 AM CDT Emre Camejo MD CV ECHO PROCEDURES Final Result * eGFR (03/09/2025 8:41 AM CDT) eGFR 70 >=60 mL/min/1. 73 m2 Comment: Interpretive Data Reference Interval Normal >/= 90 mL/min/1.73m2 Mildly decreased* 60 - 89 mL/min/1.73m2 Mildly to moderately decreased 45 - 59 mL/min/1.73m2 Moderately to severely decreased 30 - 44 mL/min/1.73m2 Severely decreased 15 - 29 mL/min/1.73m2 Kidney Failure < 15 mL/min/1.73m2 *Relative to young adult level Estimated glomerular filtration rate is determined by the 2020 CKD-EPI equation recommended by the National Kidney Foundation (A Unifying Approach to GFR Estimation: Recommendations of the NKF-ASK Task Force on Reassessing the Inclusion of Race in Diagnosing Kidney Disease, JASN 202). The CKD-EPI equation should not be used for patients with unstable renal function and has not been validated in children and those over 70. Current interpretive data was last reviewed 2021. Blood 03/09/2025 8:41 AM CDT 03/09/2025 9:03 AM CDT Emre Camejo MD LAB BLOOD ORDERABLES Final Resul t [facility] [address] [place] [address] * Differential, auto (03/09/2025 8:41 AM CDT) Neutrophil abs 4.52 1.50 - 6.50 K/cumm Imm gran abs 0.03 0.00 - 0.10 K/cumm [facility] Lymphocyte abs 2.58 0.80 - 3.30 K/cumm [facility] Monocyte abs 0.61 0.20 - 0.80 K/cumm [facility] Eosinophil abs 0.28 0.00 - 0.50 K/cumm [facility] Basophil abs 0.04 0.00 - 0.10 K/cumm [facility] Neutrophil pct 56.0 % [facility] Comment: Interpretive Data Percent cell count reference ranges are not reported, since discordance with absolute values may lead to misinterpretation of CBC data. Current Interpretive Data was last revised on 2017. Imm gran pct 0.4 % [facility] Comment: Interpretive Data Percent cell count reference ranges are not reported, since discordance with absolute values may lead to misinterpretation of CBC data. Current Interpretive Data was last revised on 2017. Lymphocyte pct 32.0 % [facility] Comment: Interpretive Data Percent cell count reference ranges are not reported, since discordance with absolute values may lead to misinterpretation of CBC data. Current Interpretive Data was last revised on 2017. Monocyte pct 7.6 % [facility] Comment: Interpretive Data Percent cell count reference ranges are not reported, since discordance with absolute values may lead to misinterpretation of CBC data. Current Interpretive Data was last revised on 2017. Eosinophil pct 3.5 % [facility] Comment: Interpretive Data Percent cell count reference ranges are not reported, since discordance with absolute values may lead to misinterpretation of CBC data. Current Interpretive Data was last revised on 2017. Basophil pct 0.5 % [facility] Comment: Interpretive Data Percent cell count reference ranges are not reported, since discordance with absolute values may lead to misinterpretation of CBC data. Current Interpretive Data was last revised on 2017. Blood 03/09/2025 8:41 AM CDT 03/09/2025 8:46 AM CDT us Emre Camejo MD LAB BLOOD ORDERABLES Final Resul t [facility] [address] Department [place] [address] * (ABNORMAL) CBC with auto differential (03/09/2025 8:41 AM CDT) WBC 8.06 3.80 - 9.90 K/cumm Hgb 12.1 11.9 - 15.5 g/dL [facility] Hct 37.5 35.6 - 45.5 % [facility] Plt 258 150 - 400 K/cumm [facility] MPV 10.7 9.1 - 12.3 fL [facility] RBC 4.06 3.90 - 5.20 M/cumm [facility] MCV 92.4 81.3 - 96.4 fL [facility] MCH 29.8 27.1 - 33.3 pg [facility] MCHC 32.3 32.3 - 35.7 g/dL [facility] RDW CV 14.1 11.1 - 14.9 % [facility] RDW SD 48.3(H) 35.7 - 48.1 fL [facility] NRBC abs 0.00 0.00 - 0.01 K/cumm [facility] Blood 03/09/2025 8:41 AM CDT 03/09/2025 8:46 AM CDT Narrative [facility] - 03/09/2025 9:15 AM CDT If most recent labs were drawn prior to 4 AM, draw only prior to initiating procedure. us Emre Camejo MD LAB BLOOD ORDERABLES Final Resul t [facility] [address] Department [place] [address] * Basic metabolic panel (03/09/2025 8:41 AM CDT) Pathologist [facility] Sodium 137 135 - 145 mmol/L Potassium, pl 4.7 3.3 - 4.9 mmol/L [facility] Chloride 100 97 - 110 mmol/L [facility] CO2 31 22 - 32 mmol/L [facility] Anion gap 6 2 - 15 mmol/L [facility] BUN 15 6 - 25 mg/dL [facility] Creatinine 0.86 0.60 - 1.10 mg/dL [facility] Glucose 91 70 - 199 mg/dL [facility] Comment: Interpretive Data Fasting glucose >/= 126 mg/dl is diagnostic for diabetes. Fasting is defined as no caloric intake for at least 8 hours. Fasting glucose between 100 mg/dl to 125 mg/dl is diagnostic of prediabetes. In a patient with classic symptoms of hyperglycemia or hyperglycemic crisis, a random glucose >/= 200 mg/dl is diagnostic for diabetes. In the absence of unequivocal hyperglycemia, results should be confirmed by repeat testing. The classification and Diagnosis of Diabetes Diabetes Care 2021; 46: S19-S40. Current interpretive data was last revised 2022. Calcium 9.6 8.5 - 10.3 mg/dL [facility] Blood 03/09/2025 8:41 AM CDT 03/09/2025 8:46 AM CDT us Emre Camejo MD LAB BLOOD ORDERABLES Final Resul t [facility] [address] Department [place] [address] * Electrocardiogram Report (02/21/2025 4:28 PM CDT) us Emre Camejo MD ECG ORDERABLES Final Result * POCT lipid panel (02/21/2025 10:48 AM CDT) Cholesterol, POC 132 <200 MG/DL HDL, POC 42 >=40 mg/dL Triglycerides, POC 103 <=149 mg/dL LDL Cholesterol POC 70 <=129 mg/dL Chol/HDL Ratio, POC 3.2 NONE Non-HDL Cholesterol, POC 91 NONE mg/dL Cholesterol Total, POC 132 30 - 199 mg/dL Capillary blood 02/21/2025 1 0:48 AM CDT us Emre Camejo MD POINT OF CARE TEST ORDERABLES Fi nal Result * US Carotids Duplex Bilateral (02/17/2025 2:31 PM CDT) Anatomical Region Laterality Modality Vascular Bilateral Ultrasound 02/17/2025 1:56 PM CDT Narrative 02/20/2025 11:56 AM CDT Vascular & Vein Surgery [address] [place] [address] Carotid Duplex Ultrasound Report Patient Name: LISA ALONZO L : 1945 (79y 8m) Study Date: 02/17/2025 1:56:30 PM Gender: F Sequins Stringer: SHARRI Location: [facility] Ref Provider: MARCEL BRAMBILA Quality: Adequate Order Provider: MARCEL BRAMBILA PROCEDURES: Carotid Report: Carotid duplex examination of the extracranial arteries was performed using 2D, color and spectral Doppler. INDICATIONS: R09.89 Other specified symptoms and signs involving the circulatory and respiratory systems. HISTORY: HTN. HLD. CAD S/P CABG. AAA S/P EVAR. Current smoker. COMPARISONS: No change compared to prior study. The previous exam was completed on 02/20/23 @ [facility]: bilat <50. MEASUREMENTS: Right Value Left Value RT Prox CCA PSV 71 cm/sec LT Prox CCA PSV 113 cm/sec RT Prox CCA EDV 12 cm/sec LT Prox CCA EDV 9 cm/sec RT Distal CCA PSV 59 cm/sec LT Distal CCA PSV 84 cm/sec RT Distal CCA EDV 14 cm/sec LT Distal CCA EDV 14 cm/sec RT Prox ICA PSV 74 cm/sec LT Prox ICA PSV 91 cm/sec RT Prox ICA EDV 17 cm/sec LT Prox ICA EDV 16 cm/sec RT Mid ICA PSV 87 cm/sec LT Mid ICA PSV 85 cm/sec RT Mid ICA EDV 18 cm/sec LT Mid ICA EDV 21 cm/sec RT Distal ICA PSV 74 cm/sec LT Distal ICA PSV 58 cm/sec RT Distal ICA EDV 14 cm/sec LT Distal ICA EDV 12 cm/sec RT ECA Prx PSV 113 cm/sec LT ECA Prx PSV 119 cm/sec RT ICA/CCA 1.47 ratio LT ICA/CCA 1.08 ratio Rt Vert Dst PSV 55 cm/sec Lt Vert Dst PSV 53 cm/sec FINDINGS: Rt Common Carotid Artery: The plaque in the right CCA appears to be heterogeneous. Rt Internal Carotid Artery: The plaque in the right internal carotid artery appears to be heterogeneous and smooth. Atherosclerotic changes of the right internal carotid artery without hemodynamically significant Doppler findings. <50% stenosis. Tortuous mid to distal. Rt External Carotid Artery: Patent right external carotid artery with evidence of atherosclerotic disease present. Rt Vertebral Artery: The right vertebral artery is patent with antegrade flow. Lt Common Carotid Artery: The plaque in the left CCA appears to be heterogeneous. Tortuous proximally. Lt Internal Carotid Artery: The plaque in the left internal carotid artery appears to be heterogeneous and smooth. Atherosclerotic changes of the left internal carotid artery without hemodynamically significant Doppler findings. <50% stenosis. Tortuous mid to distal. Lt External Carotid Artery: Patent left external carotid artery with evidence of atherosclerotic disease present. Lt Vertebral Artery: The left vertebral artery is patent with antegrade flow. Comments: Brachial artery systolic blood pressure is 135 on the right, 149 on the left. CONCLUSIONS: 1. The right internal carotid artery disease is consistent with a less than 50% stenosis. 2. The left internal carotid artery disease is consistent with a less than 50% stenosis. 3. Normal, antegrade flow is noted in bilateral vertebral arteries. ATTESTATION: I have reviewed and interpreted the pertinent images and measurements of this study. I attest to the conclusions in the final report that is provided above. Electronically Signed By: Yo Ren MD 02/20/2025 11:47:18 AM CDT Procedure Note Yo Ren MD - 02/20/2025 Vascular & Vein Surgery [address] [place] [address] Carotid Duplex Ultrasound Report Patient Name: LISA ALONZO L : 1945 (79y 8m) Study Date: 02/17/2025 1:56:30 PM Gender: F Sequins Stringer: SHARRI Location: [facility] Ref Provider: MARCEL BRAMBILA Quality: Adequate Order Provider: MARCEL BRAMBILA PROCEDURES: Carotid Report: Carotid duplex examination of the extracranial arterieswas performed using 2D, color and spectral Doppler. INDICATIONS: R09.89 Other specified symptoms and signs involving the circulatory andrespiratory systems. HISTORY: HTN. HLD. CAD S/P CABG. AAA S/P EVAR. Current smoker. COMPARISONS: No change compared to prior study. The previous exam was completed on02/20/23 @ [facility]: bilat <50. MEASUREMENTS: Right Value Left Value RT Prox CCA PSV 71 cm/sec LT Prox CCA PSV 113 cm/sec RT Prox CCA EDV 12 cm/sec LT Prox CCA EDV 9 cm/sec RT Distal CCA PSV 59 cm/sec LT Distal CCA PSV 84 cm/sec RT Distal CCA EDV 14 cm/sec LT Distal CCA EDV 14 cm/sec RT Prox ICA PSV 74 cm/sec LT Prox ICA PSV 91 cm/sec RT Prox ICA EDV 17 cm/sec LT Prox ICA EDV 16 cm/sec RT Mid ICA PSV 87 cm/sec LT Mid ICA PSV 85 cm/sec RT Mid ICA EDV 18 cm/sec LT Mid ICA EDV 21 cm/sec RT Distal ICA PSV 74 cm/sec LT Distal ICA PSV 58 cm/sec RT Distal ICA EDV 14 cm/sec LT Distal ICA EDV 12 cm/sec RT ECA Prx PSV 113 cm/sec LT ECA Prx PSV 119 cm/sec RT ICA/CCA 1.47 ratio LT ICA/CCA 1.08 ratio Rt Vert Dst PSV 55 cm/sec Lt Vert Dst PSV 53 cm/sec FINDINGS: Rt Common Carotid Artery: The plaque in the right CCA appears to beheterogeneous. Rt Internal Carotid Artery: The plaque in the right internal carotidartery appears to be heterogeneous and smooth. Atherosclerotic changes of the right internalcarotid artery without hemodynamically significant Doppler findings. <50% stenosis.Tortuous mid to distal. Rt External Carotid Artery: Patent right external carotid artery withevidence of atherosclerotic disease present. Rt Vertebral Artery: The right vertebral artery is patent with antegradeflow. Lt Common Carotid Artery: The plaque in the left CCA appears to beheterogeneous. Tortuous proximally. Lt Internal Carotid Artery: The plaque in the left internal carotid arteryappears to be heterogeneous and smooth. Atherosclerotic changes of the left internalcarotid artery without hemodynamically significant Doppler findings. <50% stenosis.Tortuous mid to distal. Lt External Carotid Artery: Patent left external carotid artery withevidence of atherosclerotic disease present. Lt Vertebral Artery: The left vertebral artery is patent with antegradeflow. Comments: Brachial artery systolic blood pressure is 135 on the right, 149on the left. CONCLUSIONS: 1. The right internal carotid artery disease is consistent with a lessthan 50% stenosis. 2. The left internal carotid artery disease is consistent with a less than50% stenosis. 3. Normal, antegrade flow is noted in bilateral vertebral arteries. ATTESTATION: I have reviewed and interpreted the pertinent images and measurements ofthis study. I attest to the conclusions in the final report that is provided above. Electronically Signed By: Yo Ren MD 02/20/2025 11:47:18 AM CDT us Marcel Brambila MD IMG US PROCEDURES Final R esult * TRANSTHORACIC ECHO (TTE) COMPLETE W DOPPLER/CF WO CONTRAST (02/02/2025 3:08 PM CDT) Estimated EF 60 % CONS SCIMAGE EF Mod BP 55 % CONS SCIMAGE Anatomical Region Laterality Modality Ultrasound 02/02/2025 2:06 PM CDT Narrative 02/02/2025 5:37 PM CDT [facility] Medical Group Cardiology [address] [facility] [address], [place] [address] [address] [facility] [address], [place] [address] P:[phone] P:[phone] Echocardiographic Report Patient Name: LISA ALONZO L : 1945 Study Date: 02/02/2025 2:06:30 PM Gender: F Tech: DLS Location: [place] Ref Provider: BECKY SHELBY Height(Cm): 157 BSA: 1.5 Weight(Kg): 51.7 Heart Rate: 69 BP: 134 / 62 Quality: Good Order Provider: BECKY SHELBY PROCEDURES: Echocardiographic Report: Transthoracic echocardiogram with complete 2D, M-Mode, and color Doppler examination. With Strain Analysis. INDICATIONS: I35.0 Nonrheumatic aortic (valve) stenosis. MEASUREMENTS: 2D/MM Value Range Doppler Value Range EF Mod BP 55 % [ 54 - 74 ] LUIS MIGUEL Vmax 0.80 cm2 [ 2.00 - 4.00 ] Estimated EF 60 % AV Mean PG 34 mmHg LVIDd 2D 3.86 cm [ 3.80 - 5.20 ] AV Peak Cole 3.59 m/s [ 1.00 - 1.70 ] LVIDs 2D 2.74 cm [ 2.20 - 3.50 ] AV Peak PG 52 mmHg LVPWd 2D 0.97 cm [ 0.60 - 0.90 ] AV VTI 79.84 cm IVSd 2D 1.07 cm [ 0.60 - 0.90 ] LVOT Diam 1.78 cm [ 1.70 - 2.10 ] LA Volume Index 35 cc/m2 [ 16 - 34 ] LVOT Peak Cole 1.16 m/s [ 0.70 - 1.10 ] LVOT VTI 27.69 cm MV E Peak Cole 0.80 m/s [ 0.60 - 1.30 ] MV A Peak Cole 0.99 m/s [ 1.00 - 1.20 ] MV Decel Time 197 msec [ 104 - 258 ] PV Peak Cole 1.15 m/s [ 0.40 - 0.80 ] TR Peak Cole 2.52 m/s [ 1.00 - 2.80 ] TR Peak PG 26 mmHg Lateral E` 0.09 m/s [ 0.10 - 0.15 ] E` 0.06 m/s E/E` 9 2D/MM Value Range Doppler Value Range - FINDINGS: Interpretation Site: Exam was interpreted at [facility]. Left Ventricle: Normal left ventricular systolic function. No focal wall motion abnormalities. Normal left ventricular size. Mild concentric left ventricular hypertrophy. Impaired diastolic relaxation Grade I. Ejection fraction is measured at 55 %. Ejection Fraction is visually estimated to be 60 %. Global Longitudinal Strain is -16 %. GLS is borderline. Right Ventricle: Normal right ventricular size. Normal right ventricular systolic function. Left Atrium: There is mild enlargement of left atrium. Right Atrium: The right atrium is normal in size. Atrial Septum: Normal atrial septum. Mitral Valve: Mild mitral annular calcification. Mild mitral valve regurgitation. There is no hemodynamically significant mitral stenosis by Doppler. Aortic Valve: Severe aortic stenosis. Peak Velocity of 3.60 m/s. Mean gradient of 34.0 mmHg. Valve area of 0.8 cm2. Aortic cusps appear moderately calcified. Trileaflet aortic valve. Mild aortic valve regurgitation. Tricuspid Valve: Normal appearance of the tricuspid valve. Mild pulmonary hypertension based on right ventricular systolic pressure. Estimated peak RVSP is 35-40 mmHg. Mild tricuspid regurgitation. Pulmonic Valve: Normal appearance of the pulmonic valve. No pulmonic stenosis. Mild pulmonic regurgitation. Pericardium: Normal pericardium with no significant pericardial effusion. Aorta: No aortic root dilation. Moderate aortic root calcification. IVC: Dilated IVC with respiratory collapse consistent with elevated right atrial pressure (10-15 mmHg). CONCLUSIONS: Normal left ventricular systolic function. No focal wall motion abnormalities. Normal left ventricular size. Mild concentric left ventricular hypertrophy. Impaired diastolic relaxation Grade I. Ejection fraction is measured at 55 %. Ejection Fraction is visually estimated to be 60 %. Global Longitudinal Strain is -16 %. GLS is borderline. There is mild enlargement of left atrium. Mild mitral annular calcification. Mild mitral valve regurgitation. Severe aortic stenosis. Peak Velocity of 3.60 m/s. Mean gradient of 34.0 mmHg. Valve area of 0.8 cm2. Aortic cusps appear moderately calcified. Trileaflet aortic valve. Mild aortic valve regurgitation. Mild pulmonary hypertension based on right ventricular systolic pressure. Estimated peak RVSP is 35-40 mmHg. Mild tricuspid regurgitation. Mild pulmonic regurgitation. Normal sinus rhythm. Frequent PVCs. Electronically Signed By: Marcel Brambila MD 02/02/2025 5:37:25 PM CDT Procedure Note Marcel Brambila MD - 02/02/2025 [facility] Medical Group Cardiology [address] [facility] [address], [place] [address] [address] [facility] [address], [place], [place] [address] P:[phone] P:[phone] Echocardiographic Report Patient Name: LISA ALONZO L : 1945 Study Date: 02/02/2025 2:06:30 PM Gender: F Tech: [facility] Location: [facility] Provider: BECKY SHELBY Height(Cm): 157 BSA: 1.5 Weight(Kg): 51.7 Heart Rate: 69 BP: 134 / 62 Quality: Good Order Provider: BECKY SHELBY PROCEDURES: Echocardiographic Report: Transthoracic echocardiogram with complete 2D, M-Mode, and color Dopplerexamination. With Strain Analysis. INDICATIONS: I35.0 Nonrheumatic aortic (valve) stenosis. MEASUREMENTS: 2D/MM Value Range Doppler ValueRange EF Mod BP 55 % [ 54 - 74 ] LUIS MIGUEL Vmax 0.80cm2 [ 2.00 - 4.00 ] Estimated EF 60 % AV Mean PG 34mmHg LVIDd 2D 3.86 cm [ 3.80 - 5.20 ] AV Peak Cole 3.59m/s [ 1.00 - 1.70 ] LVIDs 2D 2.74 cm [ 2.20 - 3.50 ] AV Peak PG 52mmHg LVPWd 2D 0.97 cm [ 0.60 - 0.90 ] AV VTI 79.84cm IVSd 2D 1.07 cm [ 0.60 - 0.90 ] LVOT Diam 1.78 cm[ 1.70 - 2.10 ] LA Volume Index 35 cc/m2 [ 16 - 34 ] LVOT Peak Cole 1.16m/s [ 0.70 - 1.10 ] LVOT VTI 27.69 cm MV E Peak Cole 0.80 m/s [ 0.60 - 1.30 ] MV A Peak Cole 0.99 m/s [ 1.00 - 1.20 ] MV Decel Time 197 msec [ 104 - 258 ] PV Peak Cole 1.15 m/s [ 0.40 - 0.80 ] TR Peak Cole 2.52 m/s [ 1.00 - 2.80 ] TR Peak PG 26 mmHg Lateral E` 0.09 m/s [ 0.10 - 0.15 ] E` 0.06 m/s E/E` 9 2D/MM Value Range Doppler ValueRange - FINDINGS: Interpretation Site: Exam was interpreted at [facility]. Left Ventricle: Normal left ventricular systolic function. No focal wall motionabnormalities. Normal left ventricular size. Mild concentric left ventricular hypertrophy.Impaired diastolic relaxation Grade I. Ejection fraction is measured at 55 %. EjectionFraction is visually estimated to be 60 %. Global Longitudinal Strain is -16 %. GLS isborderline. Right Ventricle: Normal right ventricular size. Normal right ventricular systolicfunction. Left Atrium: There is mild enlargement of left atrium. Right Atrium: The right atrium is normal in size. Atrial Septum: Normal atrial septum. Mitral Valve: Mild mitral annular calcification. Mild mitral valve regurgitation. Thereis no hemodynamically significant mitral stenosis by Doppler. Aortic Valve: Severe aortic stenosis. Peak Velocity of 3.60 m/s. Mean gradient of 34.0mmHg. Valve area of 0.8 cm2. Aortic cusps appear moderately calcified. Trileaflet aorticvalve. Mild aortic valve regurgitation. Tricuspid Valve: Normal appearance of the tricuspid valve. Mild pulmonary hypertensionbased on right ventricular systolic pressure. Estimated peak RVSP is 35-40 mmHg. Mildtricuspid regurgitation. Pulmonic Valve: Normal appearance of the pulmonic valve. No pulmonic stenosis. Mildpulmonic regurgitation. Pericardium: Normal pericardium with no significant pericardial effusion. Aorta: No aortic root dilation. Moderate aortic root calcification. IVC: Dilated IVC with respiratory collapse consistent with elevated rightatrial pressure (10-15 mmHg). CONCLUSIONS: Normal left ventricular systolic function. No focal wall motionabnormalities. Normal left ventricular size. Mild concentric left ventricular hypertrophy.Impaired diastolic relaxation Grade I. Ejection fraction is measured at 55 %. EjectionFraction is visually estimated to be 60 %. Global Longitudinal Strain is -16 %. GLS isborderline. There is mild enlargement of left atrium. Mild mitral annular calcification. Mild mitral valve regurgitation. Severe aortic stenosis. Peak Velocity of 3.60 m/s. Mean gradient of 34.0mmHg. Valve area of 0.8 cm2. Aortic cusps appear moderately calcified. Trileaflet aorticvalve. Mild aortic valve regurgitation. Mild pulmonary hypertension based on right ventricular systolic pressure.Estimated peak RVSP is 35-40 mmHg. Mild tricuspid regurgitation. Mild pulmonic regurgitation. Normal sinus rhythm. Frequent PVCs. Electronically Signed By: Marcel Brambila MD 02/02/2025 5:37:25 PM CDT Becky Shelby NP CV ECHO PROCEDURES Final Result from Last 3 Months Insurance T MEDICARE T MEDICARE AET MEDICARE Advance Directives For more information, please contact: [phone] Documents on File Type Date Recorded Patient Inside Sales Professional Expl anation ADVANCE DIRECTIVE 01/01/2022 3:12 PM Power of On Call-Medical * Full Code (Latest Code Status on File) Date Activated Date Inactivated Comments 01/06/2022 3:05 PM 01/07/2022 6:16 PM Care Teams Motorcycle Designer Relationship Specialty Start Date End Date Narda Melgoza DO [address] [place] [address] PCP - General Family Medicine 02/15/25 Zion Lechuga MD Consulting Physician Cardiology 01/01/22 Juan David Ren MD [address] [facility] [address] [place] [address] Surgeon Vascular Surgery 02/27/22
[2025-04-15 13:16] VITALS: BP 130/57; PULSE 75; RESP 14; TEMP 36.7; O2SAT 98
--- OUTSIDE RECORDS SUMMARY | 2025-04-15 14:18 | XMS_ITS | Clinical Summary ---
Author Organization [facility] Address [address] [place] [address] Care Team Providers Care Email Campaign Manager Name Role Phone Juan David Acosta MD Primary Care Provider + Source Comments [facility],non-owned Affiliates and Associated Physician Practices is amultiple site organization consisting of ambulatory clinics and hospital sitesin [place], [place], [place] and [place]. This disclosure is being madepursuant to the Care Everywhere program and may not contain all information available regarding this patient. 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, [place] Care Teams Email Campaign Manager Relationship Specialty Start Date End Date Juan David Acosta MD [address] [place] [address] PCP - General 11/19/18
--- OUTSIDE RECORDS SUMMARY | 2025-04-15 14:18 | XMS_ITS | Encounter Summary ---
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 Gender Identity Not on file Sexual Orientation Not on file documented as of this encounter Plan of Treatment Not on file documented as of this encounter Visit Diagnoses Not on filedocumented in this encounter Care Teams Supervisor Wood Crew Relationship Specialty Start Date End Date Narda Melgoza DO [address] [place] [address] PCP - General Family Medicine 02/15/25 Zion Lechuga MD Consulting Physician Cardiology 01/01/22 Juan David Ren MD [address] [facility] [address] [place] [address] Surgeon Vascular Surgery 02/27/22 documented as of this encounter
--- OUTSIDE RECORDS SUMMARY | 2025-04-15 14:18 | XMS_ITS | Encounter Summary ---
Author Organization [facility] Healthcare Address [address] [place] [address] Care Team Providers Care Labor Contractor Name Role Phone Zion Lechuga MD Unavailable Juan David Ren MD Unavailable [phone] Narda Melgoza DO Primary Care Provider [phone] Encounter Details Date Type Department Care Team (Late st Contact Info) Description 02/22/[address] 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 Visiting family or friends outside [...] [address] (PROTONIX) 40 mg, Daily ypbmdrqlc-HY-zbqedzxb-guaifen [id number] mg tablet 1 tablet, As needed traMADoL [...] AORTOGRAM; Surgeon: Emre Bowser MD; Location: CARDIAC AVIONICS TECHNICIAN; Service: Cardiovascular;; CARDIAC CATHETERIZATION 1995 CARDIAC CATHETERIZATION N/A 03/09/2025 Procedure: RIGHT LEFT HEART CATHETERIZATION WITH CORONARY ANGIOGRAPHY GRAFT AND WITH OR WITHOUT LEFT VENTRICULOGRAPHY 06306; Surgeon: Emre Bowser MD; Location: CARDIAC AVIONICS TECHNICIAN; Service: Cardiovascular; Laterality: N/A; ARA w/ LHC 03/09 at 10 CARDIAC CATHETERIZATION N/A 03/09/2025 Procedure: ULTRASOUND GUIDANCE FOR VASCULAR ACCESS S&I 80929; Surgeon: Emre Bowser MD; Location: CARDIAC AVIONICS TECHNICIAN; Service: Cardiovascular; Laterality: N/A; CARDIAC CATHETERIZATION N/A 03/09/2025 Procedure: SELECTIVE CATH SUBCLAVIAN OR INNOMINATE ARTERY, UNILATERAL 15056; Surgeon: Emre Bowser MD; Location: CARDIAC AVIONICS TECHNICIAN; Service: Cardiovascular; Laterality: N/A; CATARACT EXTRACTION cataract [...] 6 % SAVR 1-Year Mortality: 3 % [place] Cardiomyopathy Questionnaire (KCCQ-12) KCCQ-12 Score: 62.5 EKG Results (past 7days) No results found for the last 196 hours. Cath: 03/09/2025 CONCLUSIONS: Severe [place] vessel CAD - About 90-95% stenosis left [...] ml/m2 AR: Mild MR: Mild TR: Mild MS: Mild Severe Classification: CT TAVR: 03/21/2025 AA: [...] correlation to alveolar ventilation. Hui Terrazas MD [facility] Carotid Dopplers: 02/17/2025 CONCLUSIONS: 1. The right internal carotid artery disease is consistent with a less than 50% stenosis. 2. The left internal carotid artery disease is consistent with a less than 50% stenosis. 3. Normal, antegrade flow is noted in bilateral vertebral arteries. NOTES Patient seen by Heart Valve Gum Maker for consult to the Heart Valve Program at [facility]. Frailty scales done at this time including [...] on filedocumented in this encounter Care Teams Labor Contractor Relationship Specialty Start Date End Date Narda Melgoza DO [address] [place] [address] PCP - General Family Medicine 02/15/25 Zion Lechuga MD Consulting Physician Cardiology 01/01/22 Juan David Ren MD [address] [facility] [address] [place] [address] Surgeon Vascular Surgery 02/27/22 documented as of this encounter
--- OUTSIDE RECORDS SUMMARY | 2025-04-15 14:18 | XMS_ITS | Clinical Summary ---
Author Organization [facility] Address [address] [facility] Attn: Epic Prelude ADT [place] [address] Care Team Providers Care Roofer Helper Name Role Phone Unavailable Primary Care Provider Unavailabl e Medications alirocumab (Praluent Pen) 75 mg/mL Pen Injector Inject 75 mg by subcutaneous injection every 2 weeks. 2 mL 11 09/22/2024 3:38 PM SNUFF GRINDER AND SCREENER 5 Active alirocumab (Praluent Pen) 75 mg/mL [...]
--- OUTSIDE RECORDS SUMMARY | 2025-04-15 14:18 | XMS_ITS | Clinical Summary ---
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
--- OUTSIDE RECORDS SUMMARY | 2025-04-15 14:19 | XMS_ITS | Clinical Summary ---
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 Assessment & Plan (10/31/2020 8:54 AM BELT BRANDER): Stable 3.5 cm fusiform infrarenal abdominal aortic aneurysm. Continue 6 month duplex surveillance. No indication for further workup or intervention at this time. Left wrist fracture 11/30/2017 History of fundoplication 11/22/2016 Status post abdominal aortic aneurysm (AAA) repa ir 11/22/2016 Assessment & Plan (09/12/2022 2:58 PM BELT BRANDER): Patient is following up today for her [...] therapy. Assessment & Plan (10/31/2020 8:54 AM BELT BRANDER): Per patient controlled. Continue medical therapy Tobacco use 05/23/2015 Overview (11/27/2016): Tobacco use Need for immunization against influenza 05/24/20 14 Positive antinuclear antibody 05/24/2014 Knee pain 05/24/2014 Resolved Problems Problem Noted Date Diagnosed Date Resolved Date Dyslipidemia 05/23/2015 12/17/2021 Overview (11/27/2016): Dyslipidemia Assessment & Plan (12/06/2021 1:08 PM CDT): Dyslipidemia chronic and controlled. Continue statin therapy. Assessment & Plan (10/31/2020 8:54 AM BELT BRANDER): Currently controlled. Continue statin therapy Encounters Date Type Department Care Team Description 04/15/2025 12:45 PM CDT Office Visit [facility] Care at [address] [phone] Kevin Ramirez NP Left facial swelling (Primary Dx); Erythema of face; Facial cellulitis 04/13/2025 Documentation Cardiothoracic Surgery Elena Pham, JORDON 04/07/2025 Orders Only [facility] Vascular and Vein Surgery [address] [facility] [address] [place] [phone] Juan David Ren MD Aftercare following surgery of the circulatory system (Primary Dx) 04/06/2025 1:15 PM CDT Office Visit [facility] Vascular and Vein Surgery [address] [facility] [address] [address] [place] [phone] Juan David Ren MD Infrarenal abdominal aortic aneurysm (AAA) without rupture (Primary Dx); Primary hypertension; Mixed hyperlipidemia 04/03/2025 1:00 PM CDT Office Visit [facility] Medicine Surgery [address] [facility] [place] [place] [address] [place] [phone] Shiva Mcclellan MD Aortic valve stenosis, etiology of cardiac valve disease unspecified (Primary Dx) 03/27/2025 1:06 PM CDT - 03/27/2025 11:59 PM CDT Hospital Encounter [facility] [address] [address] Aftercare following surgery of the circulatory system Discharge Disposition: Discharge to home or self care 03/21/2025 8:32 AM CDT - 03/21/2025 11:59 PM CDT Hospital Encounter [facility] Respiratory [id number] [place] [address] Tobacco use; Current smoker; Preop examination Discharge Disposition: Discharge to home or self care 03/21/2025 7:28 AM CDT - 03/21/2025 11:59 PM CDT Hospital Encounter [facility] Imaging and Radiology [address] [place] [address] Aortic stenosis, severe Discharge Disposition: Discharge to home or self care 03/13/2025 Orders Only Cardiology Emre Camejo MD Tobacco use (Primary Dx); Current smoker; Preop examination; Aortic stenosis, severe 03/09/2025 10:00 AM CDT - 03/09/2025 11:30 AM CDT Surgery [facility] Cardiac Catheterization Lab [address] [place] [address] Emre Camejo MD RIGHT LEFT HEART CATHETERIZATION WITH CORONARY ANGIOGRAPHY GRAFT AND WITH OR WITHOUT LEFT VENTRICULOGRAPHY [id number] 03/09/2025 7:19 AM CDT - 03/09/2025 11:59 PM CDT Hospital Encounter [facility] Cardiac Catheterization Lab [address] [place] [address] Nonrheumatic aortic valve stenosis Discharge Disposition: Discharge to home or self care 03/09/2025 7:19 AM CDT - 03/09/2025 3:01 PM CDT Hospital Encounter [facility] Cardiac Catheterization Lab [address] [place] [address] Emre Camejo MD Nonrheumatic aortic valve stenosis; Severe aortic stenosis Discharge Disposition: Discharge to home or self care 02/27/2025 Telephone [facility] Cardiology [address] [facility] [address] [place] [phone] Emre Camejo MD 02/23/2025 Telephone [facility] Cardiology [address] [place] [address] [place] [phone] Emre Camejo MD 02/22/2025 Cardiology Conference [facility] Non-invasive Cardiac Diagnostic Testing [address] [place] [address] Benja Mckeon RN 02/21/2025 10:45 AM CDT Office Visit [facility] Cardiology [address] [place] [address] [place] [phone] Emre Camejo MD Nonrheumatic aortic valve stenosis (Primary Dx); 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; S/P CABG x 3; Primary hypertension; Infrarenal abdominal aortic aneurysm (AAA) without rupture; Status post endovascular aneurysm repair (EVAR); Tobacco use 02/21/2025 Results Follow-Up [facility] Cardiology [address] [place] [address] [place] [phone] Deysi Iyer NP US Carotids Duplex Bilateral 02/21/2025 Telephone [facility] Cardiology [address] [place] [address] [place] [phone] Emre Camejo MD 02/17/2025 2:00 PM CDT Ancillary Procedure [facility] Vascular and Vein Surgery at [address] [place] [address] Bilateral carotid bruits 02/15/2025 3:00 PM CDT Office Visit [facility] Cardiology [address] [place] [address] [place] [phone] Marcel Brambila MD Nonrheumatic aortic valve stenosis (Primary Dx); Bilateral carotid bruits; 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; History of coronary artery bypass surgery; Primary hypertension 02/03/2025 Results Follow-Up [facility] Cardiology [address] [place] [address] [place] [phone] Becky Shelby NP Transthoracic Echo (TTE) Complete W Doppler/CF 02/02/2025 2:00 PM CDT Ancillary Procedure [place] [address] [place] [phone] Nonrheumatic aortic valve stenosis from Last [...] GRAFT AND WITH OR WITHOUT LEFT VENTRICULOGRAPHY [address]300; Surgeon: Emre Camejo MD; Location: CARDIAC CONFIGURATION MANAGEMENT SPECIALIST; Service: Cardiovascular; Laterality: N/A; ARA w/ LHC 03/09 at 10 Medical devices from this surgery are in the Medical Devices section. CARDIAC CATHETERIZATION 03/09/2025 N/A Procedure: ULTRASOUND GUIDANCE FOR VASCULAR ACCESS S&I 54472; Surgeon: Emre Camejo MD; Location: CARDIAC CONFIGURATION MANAGEMENT SPECIALIST; Service: Cardiovascular; Laterality: N/A; Medical devices from this surgery are in the Medical Devices section. AORTOGRAM 03/09/2025 Groin Procedure: AORTOGRAM; Surgeon: Emre Camejo MD; Location: CARDIAC CONFIGURATION MANAGEMENT SPECIALIST; Service: Cardiovascular;; Medical devices from this surgery are in the Medical Devices section. CARDIAC CATHETERIZATION 03/09/2025 N/A Procedure: SELECTIVE CATH SUBCLAVIAN OR INNOMINATE ARTERY, UNILATERAL 26787; Surgeon: Emre Camejo MD; Location: CARDIAC CONFIGURATION MANAGEMENT SPECIALIST; Service: Cardiovascular; Laterality: N/A; Medical devices from [...] on file Legal Sex Female 9:26 PM BELT BRANDER Gender Identity Not on file Sexual Orientation [...] history exists Medical Devices Implanted Type Area Systems Development Consultant Device Identifier Shelf Expiration Date Model / Serial / Lot [employer] Viabahn 11mm 16sq Mm 8fr 59mm 135cm Balloon Expandable [id number] - [id number] - [id number] Implanted:Qty: 1 on 01/06/2022 by Juan David Ren MD at [facility] Endoprosthesis [employer] 05/10/2022 [id number] / [id number] / Wl [employer] [id number] Excluder 12mm 23mm 12cm 5.5cm Conformable Active Control Trunk - [id number] - [id number] Implanted:Qty: 1 on 01/06/2022 by Juan David Ren MD at [facility] Endoprosthesis N/A: Aorta [employer] [id number] 10/02/2024 [id number] / [id number] / Wl [employer] Garrochales Excluder 12mm 10cm Contralateral Leg Graft Endovascular [id number] - [id number] - [id number] Implanted:Qty: 1 on 01/06/2022 by Juan David Ren MD at [facility] Endoprosthesis Right: Iliac Wl [employer] [id number] 10/20/2024 [id number] / [id number] / Wl [employer] Excluder 12mm 7cm Stent Gravity Manager Seal Cuff Iliac Graft [id number] - [id number] - [id number] Implanted:Qty: 1 on 01/06/2022 by Juan David Ren MD at [facility] Endoprosthesis Left: Iliac Wl [employer] [id number] 03/23/2024 [id number] / Wl [employer]ales Viabahn 11mm 16sq Mm 8fr 59mm 135cm Balloon Expandable [id number] - [id number] - [id number] Implanted:Qty: 1 on 01/06/2022 by Juan David Ren MD at [facility] Endoprosthesis [employer] [id number] 11/01/2024 [id number] 02 / [id number] / Perclose 6fr Vascular Closure 46926-45 - [id number] Implanted:Qty: 1 on 01/06/2022 by Juan David Ren MD at [facility] [employer] 09/23/2023 05578-5 3 / / Perclose 6fr Vascular Closure 97427-59 - [id number] Implanted:Qty: 1 on 01/06/2022 by Juan David Ren MD at [facility] [employer] 09/23/2023 14720-1 3 / / Perclose 6fr Vascular Closure 46075-05 - [id number] Implanted:Qty: 1 on 01/06/2022 by Juan David Ren MD at [facility] [employer] 09/23/2023 63837-9 3 / / Perclose 6fr Vascular Closure 05488-55 - [id number] Implanted:Qty: 1 on 01/06/2022 by Juan David Ren MD at [facility] [employer] 09/23/2023 36633-9 3 / / Access Closure Inc Device Vascular Closure Femoral Arterial Access 2 Mode Polyethylene Glycol Mynx Control 5fr [id number] - [id number] Implanted:Qty: 1 on 03/09/2025 by Emre Camejo MD at [facility] Access [employer]osure Inc [id number] / / Procedures Procedure Name Priority Date/Time [...] Nonrheumatic aortic valve stenosis Severe aortic stenosis [facility] SBCLVIAN ART [address] Routine 03/09/2025 11:36 AM CDT Nonrheumatic aortic [...] Study Date: 03/27/2025 1:10:29 PM Gender: F Trailer Tank Truck Driver: Sarai Alegre Provider: JUAN DAVID REN Quality: [...] Study Date: 03/27/2025 1:10:29 PM Gender: F Trailer Tank Truck Driver: Sarai Alegre Provider: JUAN DAVID REN Quality: [...] Final Re sult * Pulmonary Function Test -[facility]; Complete/Full (03/21/2025 9:25 AM CDT) Anatomical Region Laterality Modality PFT Narrative 03/21/2025 4:13 PM CDT 03/21/25: normal spirometry , flow volume loop, lung volumes and oxygenation. Minimal reduction in the DLCO which normalizes in correlation to alveolar ventilation. Hui Terrazas MD [facility] Emre Camejo MD PFT ORDERABLES Final Result [...] from annulus: 14 mm Deployment angle: 25 MONEGASQUE, 0 Caudal Coronary Arteries: Coronary artery bypass [...] from annulus: 14 mm Deployment angle: 25 MONEGASQUE, 0 Caudal Coronary Arteries: Coronary artery bypass [...] CORONARY GRAFT WITH WITHOUT LEFT VENTRICULOGRAPHY ANGIOGRAM, [facility] [address] (03/09/2025 11:36 AM CDT) Anatomical Region Laterality [...] of remote CABG x3 in 1995 at [facility] (unknown grafts, operative report not available); aortic stenosis, infrarenal AAA status post EVAR on 01/06/2022 at [facility], hypertension, anxiety, heavy tobacco abuse. Patient has [...] TAVR workup. She was brought to the chemical laboratory technician today, and had repeat focused TAVR echo performed which showed preserved LV systolic function, calcified aortic valve with restricted leaflet mobility. Severe aortic stenosis with relatively low mean gradient. V max 3.5 m/sec. Mean gradient 30 mmHg. DVI 0.25. Valve area 0.8 cm2. Mild aortic regurgitation. Patient was subsequently brought to the chemical laboratory technician for coronary and bypass graft Angiography. Patient [...] groin hematoma, retroperitoneal bleed, vessel perforation; periprocedural [place], cardiac arrhythmias, stroke, contrast induced nephropathy, and . After discussing all the benefits, risks and alternatives, patient was willing to proceed with the procedure. PROCEDURES PERFORMED: Selective left and right coronary angiogram Aortogram Selective bypass graft Angiography Selective left subclavian angiogram Ultrasound-guided right common femoral access (CPT 07154) Moderate sedation-CPT code 62894 MODERATE SEDATION: Midazolam 2 mg , Fentanyl 50 mcg, start time 1041 stop time 1136, total direct okhj-tp-sess monitoring of conscious sedation 55 minutes (CPT 63210) TRAINED OBSERVER: Calvin Garvin RN was trained observer for moderate sedation. ACCESS SITE: Right common femoral artery PROCEDURE: After obtaining informed consent, patient was brought to the chemical laboratory technician and prepped and draped in the usual sterile manner. Time-out and immediate reassessment of the patient was performed. After local anesthesia with lidocaine, right common femoral artery access was taken with micropuncture needle under ultrasound guidance followed by insertion of a 5 [place] sheath, which was later changed to 45 cm 5 [place] sheath due to presence of aortoiliac graft, to facilitate coronary angiogram. Selective left coronary angiogram was performed using 5 [place] JL 3.5 diagnostic catheter. RCA is known to be small nondominant from previous cardiac catheterization, and was not visualized on today's angiogram. Selective aortocoronary bypass graft Angiography was performed using 5 [place] JR4 diagnostic catheter. Aortogram was performed using [...] and other findings are given below. FINDINGS: [place] CORONARY ARTERIES: LEFT CORONARY SYSTEM: There is high-grade about 90-95% stenosis in the mid -distal left main coronary artery. LAD has chronic total occlusion at its origin. Left circumflex artery is a dominant, large caliber vessel with ecmypfwx-as-tginzn diffuse disease in the proximal segment. The vessel is supplied by patent SVG. Retrograde filling of the graft seen on the left coronary angiogram. RIGHT CORONARY ARTERY: Not visualized, reported to be nondominant from previous cardiac catheterization. BYPASS GRAFT ANGIOGRAPHY: SVG TO LPDA: Large caliber graft, patent, anastomosed to LPDA. There is retrograde filling of the LCX. The little shell tribe LPA after anastomosis is a large caliber vessel without significant focal stenosis. AORTOCORONARY GRAFT: Appears to be arterial graft, patent, anastomosed to LAD, no significant focal stenosis. The little shell tribe vessel after anastomosis is a small to medium caliber vessel. LEFT SUBCLAVIAN ARTERY: Patent LEFT VENTRICULOGRAM: not performed HEMODYNAMIC ASSESSMENT: Opening pressure 138/92 mmHg, closing pressure 147/84 mmHg. CONCLUSIONS: Severe little shell tribe vessel CAD - About 90-95% stenosis left [...] was used to complete this document, therefore, evs attendant variances may occur. Emre Camejo MD, [facility] 03/09/25 us Emre Camejo MD CV CARDIAC CATH PROCEDURES Edite d Result - Final * TRANSTHORACIC ECHO (TTE) LIMITED/FOLLOW UP W LTD DOPPLER/CF WO CONTRAST (03/09/2025 10:04 AM CDT) EF Mod BP 55 % CONS SCIMAGE Anatomical Region Laterality Modality Ultrasound 03/09/2025 9:48 AM CDT Narrative 03/09/2025 11:[place] [address] Limited Echocardiogram Report Patient Name: LISA ALONZO [...] regurgitation. Electronically Signed By: Emre Camejo MD, [facility] 03/09/2025 11:55:42 AM CDT Procedure Note Emre Camejo MD - 03/09/2025 [place] [address] Limited Echocardiogram Report Patient Name: LISA ALONZO L : 1945 Study Date: 03/09/2025 9:48:55 AM Gender: F Tech: Location: [facility] Ref Provider: EMRE CAMEJO Height(Cm): 158 BSA: [...] regurgitation. Electronically Signed By: Emre Camejo MD, [facility] 03/09/2025 11:55:42 AM CDT Emre Camejo MD [...] BLOOD ORDERABLES Final Resul t [facility] [place] [address] [address] [place] [address] * Differential, auto (03/09/2025 8:41 AM CDT) Neutrophil abs 4.52 1.50 - 6.50 K/cumm Imm gran abs 0.03 0.00 - 0.10 K/cumm [facility] Lymphocyte abs 2.58 0.80 - 3.30 K/cumm [facility] Monocyte abs 0.61 0.20 - 0.80 K/cumm [facility] Eosinophil abs 0.28 0.00 - 0.50 K/cumm [facility] Basophil abs 0.04 0.00 - 0.10 K/cumm [facility] Neutrophil pct 56.0 % [facility] Comment: Interpretive Data Percent cell count reference ranges are not reported, since discordance with absolute values may lead to misinterpretation of CBC data. Current Interpretive Data was last revised on 2017. Imm gran pct 0.4 % [facility] Comment: Interpretive Data Percent cell count reference ranges are not reported, since discordance with absolute values may lead to misinterpretation of CBC data. Current Interpretive Data was last revised on 2017. Lymphocyte pct 32.0 % [facility] Comment: Interpretive Data Percent cell count reference ranges are not reported, since discordance with absolute values may lead to misinterpretation of CBC data. Current Interpretive Data was last revised on 2017. Monocyte pct 7.6 % [facility] Comment: Interpretive Data Percent cell count reference ranges are not reported, since discordance with absolute values may lead to misinterpretation of CBC data. Current Interpretive Data was last revised on 2017. Eosinophil pct 3.5 % [facility] Comment: Interpretive Data Percent cell count reference ranges are not reported, since discordance with absolute values may lead to misinterpretation of CBC data. Current Interpretive Data was last revised on 2017. Basophil pct 0.5 % [facility] Comment: Interpretive Data Percent cell count reference ranges are not reported, since discordance with absolute values may lead to misinterpretation of CBC data. Current Interpretive Data was last revised on 2017. Blood 03/09/2025 8:41 AM CDT 03/09/2025 8:46 AM CDT us Emre Camejo MD LAB BLOOD ORDERABLES Final Resul t [address] [address] [place] [address] * (ABNORMAL) CBC with auto differential (03/09/2025 8:41 AM CDT) WBC 8.06 3.80 - 9.90 K/cumm Hgb 12.1 11.9 - 15.5 g/dL [facility] Hct 37.5 35.6 - 45.5 % [facility] Plt 258 150 - 400 K/cumm [facility] MPV 10.7 9.1 - 12.3 fL [facility] RBC 4.06 3.90 - 5.20 M/cumm [facility] MCV 92.4 81.3 - 96.4 fL [facility] MCH 29.8 27.1 - 33.3 pg [facility] MCHC 32.3 32.3 - 35.7 g/dL [facility] RDW CV 14.1 11.1 - 14.9 % [facility] RDW SD 48.3(H) 35.7 - 48.1 fL [facility] NRBC abs 0.00 0.00 - 0.01 K/cumm [facility] Blood 03/09/2025 8:41 AM CDT 03/09/2025 8:46 AM CDT Narrative [facility] - 03/09/2025 9:15 AM CDT If most recent labs were drawn prior to 4 AM, draw only prior to initiating procedure. us Emre Camejo MD LAB BLOOD ORDERABLES Final Resul t [facility] [address] [address] [place] [address] * Basic metabolic panel (03/09/2025 8:41 AM CDT) Pathologist [facility] Sodium 137 135 - 145 mmol/L Potassium, pl 4.7 3.3 - 4.9 mmol/L [facility] Chloride 100 97 - 110 mmol/L [facility] CO2 31 22 - 32 mmol/L [facility] Anion gap 6 2 - 15 mmol/L [facility] BUN 15 6 - 25 mg/dL [facility] Creatinine 0.86 0.60 - 1.10 mg/dL [facility] Glucose 91 70 - 199 mg/dL [facility] Comment: Interpretive Data Fasting glucose >/= 126 [...] LAB BLOOD ORDERABLES Final Resul t [place] [address] [address] [place] [address] * Electrocardiogram Report (02/21/2025 4:28 PM CDT) [...] AM CDT Vascular & Vein Surgery [address] [facility] [place] [address] Carotid Duplex Ultrasound Report Patient Name: LISA ALONZO L : 1945 (79y 8m) Study Date: 02/17/2025 1:56:30 PM Gender: F Trailer Tank Truck Driver: SHARRI Location: [facility] Ref Provider: MARCEL BRAMBILA [...] that is provided above. Electronically Signed By: oY Ren MD 02/20/2025 11:47:18 AM CDT Procedure Note Yo Ren MD - 02/20/2025 Vascular & Vein Surgery [address] [facility] [place] [address] Carotid Duplex Ultrasound Report Patient Name: LISA ALONZO L : 1945 (79y 8m) Study Date: 02/17/2025 1:56:30 PM Gender: F Trailer Tank Truck Driver: SHARRI Location: [facility] Ref Provider: MARCEL BRAMBILA [...] PM CDT Narrative 02/02/2025 5:37 PM CDT [facility] [address] [facility] [address], [place] [address] [address] [facility] [address], [place] [address] P:[phone] P:[phone] Echocardiographic Report Patient Name: LISA ALONZO L : 1945 Study Date: 02/02/2025 2:06:30 PM Gender: F Tech: DLS Location: [place] Ref Provider: BECKY SHELBY Height(Cm): 157 BSA: [...] FINDINGS: Interpretation Site: Exam was interpreted at [facility]. Left Ventricle: Normal left ventricular systolic function. [...] Procedure Note Marcel Brambila MD - 02/02/2025 [facility] [address] [facility] [address], [place] [address] [address] [facility] [address] [place], [place] [address] P:[phone] P:[phone] Echocardiographic Report Patient Name: LISA ALONZO L : 1945 Study Date: 02/02/2025 2:06:30 PM Gender: F Tech: [facility] Location: [facility] Provider: BECKY SHELBY Height(Cm): 157 BSA: [...] FINDINGS: Interpretation Site: Exam was interpreted at [facility]. Left Ventricle: Normal left ventricular systolic function. [...] Advance Directives For more information, please contact: [phone] Documents on File Type Date Recorded Patient Patient Care Director Expl anation ADVANCE DIRECTIVE 01/01/2022 3:12 PM Power of Editing Computer Publisher-Medical * Full Code (Latest Code Status on File) Date Activated Date Inactivated Comments 01/06/2022 3:05 PM 01/07/2022 6:16 PM Care Teams Electronics Maintenance Technician Relationship Specialty Start Date End Date Narda Melgoza DO [address] [place] [address] PCP - General Family Medicine 02/15/25 Zion Lechuga MD Consulting Physician Cardiology 01/01/22 Juan David Ren MD [address] [place] [address] Surgeon Vascular Surgery 02/27/22
[2025-04-15] MEDS: CLINDAMYCIN 600 MG/D5W 50 ML 600 MG/50 ML PIGGYBACK 100 MG IVPB (14:34)
--- NOTE | 2025-04-15 14:36 | ED.SKABFB ---
HPI - Skin/Abscess/Foreign Bdy General Chief complaint: Skin/Abscess/Foreign Body Stated complaint: swelling to L. side of face x2 days Time Seen by Provider: 04/15/25 14:06 History of Present Illness HPI narrative: 79-year-old female presents with left facial swelling that started on . Patient denies fever nausea vomiting. Patient has no history of dental abscesses. Patient states she wants at [facility] convenient care and was sent here to have CT to rule out abscess. Patient has no other complaints Onset (ago): day(s) (Three) Associated symptoms: denies other symptoms Related Data Home Medications ?Medication ?Instructions ?Recorded ?Confirmed ?Last Taken ?Type amlodipine 10 mg tablet 10 mg PO DAILY 05/08/22 02/16/25 11/29/24 History aspirin 81 mg tablet,delayed 81 mg PO DAILY 05/08/22 02/16/25 11/29/24 History release (Adult Aspirin Regimen) cetirizine 10 mg capsule (Allergy 10 mg PO DAILY PRN Allergy Symptoms 05/08/22 02/16/25 Unknown History Relief (cetirizine)) cholecalciferol (vitamin D3) 50 50 mcg PO DAILY 05/08/22 02/16/25 11/29/24 History mcg (2,000 unit) capsule alirocumab 75 mg/mL subcutaneous 75 mg subcut Q14D 08/11/22 02/16/25 11/17/24 History pen injector (Praluent Pen) coenzyme Q10 10 mg capsule (Co 10 mg PO ONCE 03/02/24 02/16/25 11/29/24 History Q-10) pyridoxine (vitamin B6) 10 mg 10 mg PO DAILY 06/01/24 02/16/25 11/29/24 History tablet acetaminophen 500 mg tablet 500 mg PO Q6H PRN pain 11/22/24 02/16/25 Unknown History ezetimibe 10 mg tablet 10 mg PO DAILY 11/22/24 02/16/25 11/29/24 History nitroglycerin 0.4 mg sublingual 0.4 mg sublingual .chest pain PRN 11/22/24 02/16/25 Unknown History tablet chest pain Allergies Allergy/AdvReac Type Severity Reaction Status Date / Time tetanus toxoid, adsorbed Allergy Intermediate SWELLING Verified 02/16/25 13:29 AND REDNESS AT SITE erythromycin base Allergy Unknown Unknown Verified 02/16/25 13:29 Sulfa (Sulfonamide Allergy Unknown Unknown Verified 02/16/25 13:29 Antibiotics) tetanus immune globulin Allergy Unknown Swelling Verified 02/16/25 13:29 Review of Systems Review of Systems: A 10 system review of systems was completed on the patient and is negative except for what is stated in the HPI. Nursing and ancillary documentation was reviewed. [facility] Past Medical History Medical History (Updated 04/15/25 @ 16:01 by Gareth Duncan APRN) Depression Geographic tongue Slipped Deandra fundoplication Surgical History Surgical History History of repair of aneurysm of abdominal aorta using endovascular stent graft (12/2021) Hx of CABG (1995) Family History Family History Mother Family history of osteoporosis Sibling Family history of osteoporosis Heart disease Sibling Alcoholism Cancer Heart disease Other Family history of elevated blood lipids Social History Social History Smoking packs per day: 1 Smoking cigarettes per day: 20.0 Smoking status: Current every day smoker Tobacco type: cigarettes Second hand tobacco smoke exposure: No Alcohol intake: unknown Substance use: never Substance use type: does not use Lack of Transportation: No Lack of Food: Never True Current Housing: I Have Housing Concerned About Future Housing: No Difficulty Paying Gas/Electric Bills: No Difficulty Paying for Meds: No Currently Unemployed: No Education: Bachelor's Degree Difficulty w/ Childcare or Family Care: No Living arrangements: with family Gender identity (if verbalized by the patient): Female Spiritual care concerns: No Exam Narrative: GENERAL: Well-appearing, well-nourished, and in no acute distress. HEAD: Normocephalic, atraumatic. EYES: PERRLA and EOMI. ENT: Nares clear, no rhinorrhea or epistaxis. Mucous membranes moist. swelling and redness to left maxillary sinus with tenderness to palpation NECK: Supple. CHEST: Clear to auscultation. No respiratory distress. HEART: Regular rate and rhythm. No murmur heard. Normal peripheral pulses. ABDOMEN: Soft, nontender, nondistended, normal active bowel sounds. EXTREMITIES: Normal range of motion. No edema. SKIN: Warm, dry, no rash. NEURO: No focal deficits. Alert and oriented x3. PSYCH: Normal mood and affect. HENMT: Face and sinus: erythema and Facial tenderness on exam of face and sinuses Course Course Emergency Course: Will get basic labs, CT scan of maxillofacial, IV with normal saline, IV clindamycin Vital Signs Vital signs: Vital Signs Temperature 36.7 C 04/15/25 13:16 Pulse Rate 75 04/15/25 13:16 Respiratory Rate 14 04/15/25 13:16 Blood Pressure 130/57 L 04/15/25 13:16 Pulse Oximetry 98 04/15/25 13:16 Oxygen Delivery Room Air 04/15/25 13:16 Temperature 36.7 C 04/15/25 13:16 Pulse Rate 75 04/15/25 13:16 Respiratory Rate 14 04/15/25 13:16 Blood Pressure 130/57 L 04/15/25 13:16 Pulse Oximetry 98 04/15/25 13:16 Oxygen Delivery Room Air 04/15/25 13:16 MDM - Skin/Abscess/Foreign Bdy MDM Narrative Medical decision making narrative: CT SCAN NEGATIVE FOR ABSCESS. WILL START ON CLINDAMYCIN STARTING TOMORROW. PATIENT INSTRUCTED TO FOLLOW-UP WITH PRIMARY CARE DOCTOR NEXT WEEK Differential Diagnosis Differential diagnosis: Likely abscess of skin or subcutaneous tissue and cellulitis Lab Data 04/15/25 14:37 04/15/25 14:37 Labs: Lab Results 04/15/25 Range/Units 14:37 WBC 13.6 H (4.5-10.0) K/mm3 RBC 4.35 (4.2-5.4) M/mm3 Hgb 12.8 (12.0-15.0) g/dL Hct 39.1 (37.0-47.0) % MCV 89.9 (80-100) fl MCH 29.4 (26-34) pg MCHC 32.7 (32-36) g/dl RDW 14.6 H (11.5-14.5) % Plt Count 220 (150-375) k/mm3 MPV 10.1 (7.4-10.4) fl Immature Gran % (Auto) 0.4 (0-0.5) % Neut % (Auto) 78.1 H (45.5-73.1) % Lymph % (Auto) 13.8 L (18.3-44.2) % Bollinger % (Auto) 6.2 (2.6-8.5) % Eos % (Auto) 1.1 (0-4.4) % Baso % (Auto) 0.4 (0.2-1.2) % Lymph # (Auto) 1.88 (0.9-3.2) K/mm3 Bollinger # (Auto) 0.8 H (0.1-0.6) K/mm3 Eos # (Auto) 0.2 (0-0.3) K/mm3 Baso # (Auto) 0.1 (0.0-0.1) K/mm3 Abs Immat Gran (auto) 0.05 H (0.00-0.031) K/mm3 Absolute Neuts (auto) 10.7 H (1.3-6.7) K/mm3 Absolute Nucleated RBC 0.000 (0.0-0.012) K/mm3 Nucleated RBC % 0.0 (0.0-0.2) % Sodium 134 L (137-145) mmol/L Potassium 3.7 (3.4-5.0) mmol/L Chloride 96 L (98-107) mmol/L Carbon Dioxide 28 (22-30) mmol/L Anion Gap 10 (4-12) mmol/L BUN 12 (7-17) mg/dL Creatinine 0.85 (0.7-1.0) mg/dL Estim Creat Clear Calc 38 ml/min Estimated GFR > 60 (59 - ) Glucose 100 (65-110) mg/dL Calcium 9.2 (8.4-10.2) mg/dL Magnesium 2.1 (1.6-2.3) mg/dL Total Bilirubin 0.7 (0.2-1.3) mg/dL AST 27 (14-36) U/L ALT 14 (6-35) U/L Alkaline Phosphatase 106 (38-126) U/L Total Protein 8.1 (6.3-8.2) g/dL Albumin 4.4 (3.5-5.1) g/dL Imaging Data Radiologist's impression: IMPRESSION: 1. Mild soft tissue edema/fatty infiltration overlying the left maxilla anteriorly, suspicious for cellulitis. No evidence for abscess Discharge Plan Discharge Clinical Impression: Cellulitis of face Patient Disposition: Home Condition: Stable Instructions: Antibiotic Form, Cellulitis (ED) Additional Instructions: TAKE MEDICATION PRESCRIBED RETURN FOR WORSENING SWELLING, FEVERS, NAUSEA OR VOMITING FOLLOW-UP PRIMARY CARE DOCTOR NEXT WEEK Patient Language: Chinese Prescriptions: New clindamycin HCl [Cleocin HCl] 300 mg capsule 300 mg PO Q6H Qty: 40 0RF Rx Instructions: START TOMORROW MORNING 08/24 No Action pyridoxine (vitamin B6) 10 mg tablet 10 mg PO DAILY amlodipine 10 mg tablet 10 mg PO DAILY aspirin [Adult Aspirin Regimen] 81 mg tablet,delayed release (DR/EC) 81 mg PO DAILY Allergy Relief (cetirizine) 10 mg capsule 10 mg PO DAILY PRN (Reason: Allergy Symptoms) cholecalciferol (vitamin D3) 50 mcg (2,000 unit) capsule 50 mcg PO DAILY Praluent Pen 75 mg/mL pen injector 75 mg subcut Q14D coenzyme Q10 [Co Q-10] 10 mg capsule 10 mg PO ONCE polyethylene glycol 3350 [Miralax] 17 gram powder in packet 17 g PO DAILY Qty: 90 3RF albuterol sulfate [Ventolin HFA] 90 mcg/actuation HFA aerosol inhaler 1 inh inhalation Q4H PRN (Reason: shortness of breath or wheezing) Qty: 6.7 0RF nitroglycerin 0.4 mg tablet, sublingual 0.4 mg sublingual .chest pain PRN (Reason: chest pain) Rx Instructions: sublingually as needed for severe chest pain; acetaminophen 500 mg tablet 500 mg PO Q6H PRN (Reason: pain) ezetimibe 10 mg tablet 10 mg PO DAILY ipratropium bromide 42 mcg (0.06 %) spray,non-aerosol 2 spray intranasal TID PRN (Reason: allergy symptoms) Qty: 15 5RF Rx Instructions: administer into each nostril pantoprazole 40 mg tablet,delayed release (DR/EC) 40 mg PO DAILY Qty: 90 3RF duloxetine 60 mg capsule,delayed release(DR/EC) 60 mg PO DAILY Qty: 90 1RF Patient Comments: not taking tramadol 50 mg tablet See Rx Instructions PO Q6H PRN (Reason: pain) Qty: 80 1RF Rx Instructions: 50 mg 1-2 tablets PO every 6 hours PRN; atorvastatin 80 mg tablet 80 mg PO DAILY Qty: 90 3RF Follow-up/Referrals: Alexander Berman MD [Physician, Urology] - 2 Days Narda Melgoza DO [Primary Care Provider, [facility]] Time of Disposition: 16:04
[2025-04-15 14:42] LABS: Hematocrit 39.1 % (37.0-47.0); Hemoglobin 12.8 g/dL (12.0-15.0); Immature Granulocyte Percent A 0.4 % (0-0.5); Lymphocytes Absolute Auto 1.88 K/mm3 (0.9-3.2); Mean Corpuscular HGB Conc 32.7 g/dl (32-36); Mean Corpuscular Hemoglobin 29.4 pg (26-34); Mean Corpuscular Volume 89.9 fl (80-100); Nucleated Red Blood Cells Absolute Auto 0.000 K/mm3 (0.0-0.012); Nucleated Red Blood Cells Perc 0.0 % (0.0-0.2); Platelet Count Result 220 k/mm3 (150-375); Red Blood Count 4.35 M/mm3 (4.2-5.4); White Blood Count 13.6 K/mm3 (4.5-10.0)
[2025-04-15 15:03] LABS: Alanine Aminotransferase 14 U/L (6-35); Albumin Level 4.4 g/dL (3.5-5.1); Alkaline Phosphatase 106 U/L (38-126); Anion Gap 10 mmol/L (4-12); Aspartate Amino Transferase 27 U/L (14-36); Bilirubin,Total 0.7 mg/dL (0.2-1.3); Blood Urea Nitrogen 12 mg/dL (7-17); Calcium 9.2 mg/dL (8.4-10.2); Carbon Dioxide 28 mmol/L (22-30); Chloride 96 mmol/L (98-107); Estimated CRCL calculation 38 ml/min; Estimated Glomerular Filt Rate > 60; Glucose 100 mg/dL (65-110); Magnesium 2.1 mg/dL (1.6-2.3); Potassium 3.7 mmol/L (3.4-5.0); Sodium 134 mmol/L (137-145); Total Protein 8.1 g/dL (6.3-8.2)
== END 2025-04-15 16:15 | disposition home or self-care (01) ==
PROVIDERS: Emergency Provider Nurse Practitioner Family; PCP Family Medicine
DX: L03.211 Cellulitis of face (principal); F32.A Depression, unspecified; F17.210 Nicotine dependence, cigarettes, uncomplicated; Z95.1 Presence of aortocoronary bypass graft; Z79.82 Long term (current) use of aspirin; Z79.899 Other long term (current) drug therapy
CPT/HCPCS: 36415; 70487; 80053; 83735; 85025; 96365; 99284; Q9967

== ENCOUNTER 2025-05-25 12:36 | Outpatient (CLI) | payer MEDICARE, SELFPAY ==
--- NOTE | ~2025-05-25 | MM_ITS ---
EXAMINATION: MM screening [facility] BI w [place] HISTORY: Screening TECHNIQUE: Craniocaudal and mediolateral oblique 3-D tomosynthesis images were obtained and synthetic 2-D images were generated. CAD analysis was submitted and interpreted. COMPARISON: Comparison to multiple prior studies sequentially, with oldest reviewed study dated 04/10/2021. BREAST PARENCHYMAL COMPOSITION: Not dense: There are scattered areas of fibroglandular density. FINDINGS: There is no evidence of suspicious mass, calcification, or architectural distortion to suggest malignancy in either breast. There has been no suspicious interval change. IMPRESSION: 1. No mammographic evidence of malignancy. 2. Recommend routine screening mammography in one year. BI-RADS Category 1: Negative Reviewed, dictated and finalized at location B.
--- OUTSIDE RECORDS SUMMARY | 2025-05-25 12:40 | XMS_ITS | Clinical Summary ---
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
--- OUTSIDE RECORDS SUMMARY | 2025-05-25 12:40 | XMS_ITS | Clinical Summary ---
Author Organization [facility] Address [address] [place] [address] Care Team Providers Care Water Pollution Specialist Name Role Phone Juan David Acosta MD Primary Care Provider + Source Comments [facility],non-owned Affiliates and Associated Physician Practices is amultiple site organization consisting of ambulatory clinics and hospital sitesin [place], [place], [place]. This disclosure is being madepursuant to the Care Everywhere program and may not contain all information available regarding this patient. 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 Gender Identity Not on file Sexual Orientation [...] yrs (1 - 1-dose 75+ series) 2022 DEPRESSION SCREENING 08/24/2024 MEDICARE AWV CALENDAR YEAR 2024 COVID-19 VACCINE ( - 2023-2 5 season) 2025 INFLUENZA VACCINE (#1) 2025 HEPATITIS B VACCINE [...] age to complete this topic Insurance AETNA [employer] [facility] Address: [facility] [id number] [place] [phone] AETNA MEDICARE ADV [employer] [facility] Address: [facility] [id number] [place] [phone] SELF PAY NO INSURANCE Member Subscriber Plan / Payer (Ef fective for All Dates) Name:Tyron Isaiasorion Member ID:Not on file Relation to Subscriber:Not on file Name:TYRONISAIASORION Subscriber ID:Not on file (Home) Address: [address] [place] [address] Payer ID:Not on file Group ID:Not on file Type:Self Pay Address: [place], [place] Care Teams Water Pollution Specialist Relationship Specialty Start Date End Date Juan David Acosta MD [address] [place] [id number] PCP - General 11/19/18
--- OUTSIDE RECORDS SUMMARY | 2025-05-25 12:40 | XMS_ITS | Clinical Summary ---
Author Organization [facility] Address [address] [facility] Attn: Epic Prelude ADT [place] [address] Care Team Providers Care Wholesale Agronomist Name Role Phone Unavailable Primary Care Provider Unavailabl e Medications alirocumab (Praluent Pen) 75 mg/mL Pen Injector Inject 75 mg by subcutaneous injection every 2 weeks. 2 mL 11 09/22/2024 3:38 PM MEDICAL REVIEW SPECIALIST 5 Active alirocumab (Praluent Pen) 75 mg/mL Pen Injector Inject 75 mg under the skin every 14 (fourteen) days 2 mL 11 04/27/2025 3:48 PM CDT 5 Active Encounters Date Type [...]
--- OUTSIDE RECORDS SUMMARY | 2025-05-25 12:40 | XMS_ITS | Encounter Summary ---
Author Organization [facility] Address [address] [place] [address] Care Team Providers Care Health Navigator Name Role Phone Juan David Acosta MD Primary Care Prov ider Zion Lechuga MD Unavailable [phone] Juan David Ren MD Unavailable [phone] Narda Melgoza DO Primary Care Provider [phone] Encounter Details Date Type Department Care Team (Late st Contact Info) Description 12/03/2016 Orders Only [facility] ProviderAndres MD [address] [place] [address] Social History Tobacco Use Types Packs/Day Years Used Date Smoking Tobacco: Former Cigarettes Q uit: 08/24/2012 Alcohol Use Standard Drinks/Week Comments No 0 (1 standard drink = 0.6 oz pur e alcohol) Comments Unknown Sex and Gender Information Value Date Recorded Sex Assigned at Not on file 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 us Historical Provider [facility] PATRICK FRAGOSO Final Result documented in this encounter Visit Diagnoses Not on filedocumented in this encounter Care Teams Health Navigator Relationship Specialty Start Date End Date Juan David Acosta MD PCP - General 11/21/16 02/14/25 Narda Melgoza DO [address] [place] [address] PCP - General Family Medicine 02/15/25 Zion Lechuga MD Consulting Physician Cardiology 01/01/22 Juan David Ren MD [address] [place] [address] Surgeon Vascular Surgery 02/27/22 documented as of this encounter
--- OUTSIDE RECORDS SUMMARY | 2025-05-25 12:40 | XMS_ITS | Encounter Summary ---
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 Visiting family or friends outside [...] [address] (PROTONIX) 40 mg, Daily [id number] mg tablet 1 tablet, As needed traMADoL [...] AORTOGRAM; Surgeon: Emre Bowser MD; Location: CARDIAC BREAKING MACHINE OPERATOR; Service: Cardiovascular;; CARDIAC CATHETERIZATION 1995 CARDIAC CATHETERIZATION N/A 03/09/2025 Procedure: RIGHT LEFT HEART CATHETERIZATION WITH CORONARY ANGIOGRAPHY GRAFT AND WITH OR WITHOUT LEFT VENTRICULOGRAPHY [id number]; Surgeon: Emre Bowser MD; Location: CARDIAC BREAKING MACHINE OPERATOR; Service: Cardiovascular; Laterality: N/A; ARA w/ LHC 03/09 at 10 CARDIAC CATHETERIZATION N/A 03/09/2025 Procedure: ULTRASOUND GUIDANCE FOR VASCULAR ACCESS S&I 28587; Surgeon: Emre Bowser MD; Location: CARDIAC BREAKING MACHINE OPERATOR; Service: Cardiovascular; Laterality: N/A; CARDIAC CATHETERIZATION N/A 03/09/2025 Procedure: SELECTIVE CATH SUBCLAVIAN OR INNOMINATE ARTERY, UNILATERAL 99775; Surgeon: Emre Bowser MD; Location: CARDIAC BREAKING MACHINE OPERATOR; Service: Cardiovascular; Laterality: N/A; CATARACT EXTRACTION cataract [...] 6 % SAVR 1-Year Mortality: 3 % [place] Cardiomyopathy Questionnaire (KCCQ-12) KCCQ-12 Score: 62.5 EKG Results (past 7days) No results found for the last 196 hours. 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 Hui Terrazas MD [facility] Carotid Dopplers: 02/17/2025 CONCLUSIONS: 1. The right internal carotid artery disease is consistent with a less than 50% stenosis. 2. The left internal carotid artery disease is consistent with a less than 50% stenosis. 3. Normal, antegrade flow is noted in bilateral vertebral arteries. NOTES Patient seen by Heart Valve Completions Manager for consult to the Heart Valve Program at [facility]. Frailty scales done at this time [...] on filedocumented in this encounter Care Teams Nuclear Medicine Pet Ct Technologist Relationship Specialty Start Date End Date Narda Melgoza DO [address] [place] [address] PCP - General Family Medicine 02/15/25 Zion Lechuga MD Consulting Physician Cardiology 01/01/22 Juan David Ren MD [address] [place] [address] Surgeon Vascular Surgery 02/27/22 documented as of this encounter
--- OUTSIDE RECORDS SUMMARY | 2025-05-25 12:40 | XMS_ITS | Clinical Summary ---
Author [place] [facility] [place] [address] Address [address] [place] [address] Care Team Providers Care Safemaker Name Role Phone Zion Lechuga MD Unavailable Juan David Ren MD Unavailable Narda Melgoza DO Primary Care Provider Allergies Active Allergy Reactions Criticality Noted Date Comments Bupivacaine-Lidocaine Other (See comments) Low 01/01/2022 Caused EKG changes, sent patient to emergency room, per patient cardiology stated everything was normal Doxycycline Itching Low Erythromycin Nausea only Low 07/27/2017 Erythromycin Base Unknown 11/23/2024 Sulfa Nausea only Low Sulfa (Sulfonamide Antibiotics) Nausea only,Unknown Low 11/23/2024 Tetanus Immune Globulin Swelling Medium 11/23/2024 Tetanus Toxoid, Adsorbed Other (See comments) High 11/23/2024 Tetanus Vaccines And Toxoid Swelling,Edema Medium Medications aspirin (ASPIRIN LOW DOSE) 81 mg tablet take 1 tablet by oral route every day 0 0 3 Active cholecalcifero l (VITAMIN D-3) 2,000 unit capsule Take 2 capsules (4,000 Units total) by mouth every morning Active pantoprazole DR (PROTONIX) 40 mg EC tablet Take 1 tablet (40 mg total) by mouth every morning 9 Active acetaminophen (TYLENOL) 500 mg tablet Take 1 tablet (500 mg total) by mouth every 6 (six) hours as needed for pain Active cetirizine (ZyrTEC) 10 mg tablet Take 1 tablet (10 mg total) by mouth as needed Allergy Relief Active traMADoL (ULTRAM) 50 mg tablet Take 1 tablet (50 mg total) by mouth every 6 (six) hours as needed 1 Active docusate sodium (COLACE) 100 mg capsuleIndicat ions:constipat ion Take 1 capsule (100 mg total) by mouth as needed for constipation Active acidophilus-pe ctin, citrus 100 million cell-10 mg capsule Take by mouth nightly Active atorvastatin (LIPITOR) 80 mg tablet TAKE 1 TABLET BY MOUTH EVERY DAY 90 tablet 1 4 Active ezetimibe (ZETIA) 10 mg tablet Take 1 tablet (10 mg total) by mouth daily 90 tablet 3 4 Active Additional Information Patient taking differently:10 mg oralEvery morning, Reported on 05/08/2025 nitroglycerin (NITROSTAT) 0.4 mg SL tabletIndicati ons:Coronary artery disease involving la posta coronary artery of la posta heart without angina pectoris PLACE 1 TABLET (0.4 MG TOTAL) UNDER THE TONGUE EVERY 5 (FIVE) MINUTES NEEDED FOR CHEST PAIN UP TO 3 DOSES, THEN CALL 911 75 tablet 1 5 Active amLODIPine (NORVASC) 10 mg tablet TAKE 1 TABLET BY MOUTH EVERY DAY 90 tablet 3 5 Active Additional Information Patient taking differently:10 mg oralEvery morning, Reported on 05/08/2025 Praluent Pen 75 mg/mL pen injector Inject as directed every 14 (fourteen) days [address] (CYMBALTA) 60 mg capsule Take 1 capsule (60 mg total) by mouth every morning 5 Active albuterol HFA (PROVENTIL HFA,VENTOLIN HFA,PROAIR HFA) 90 mcg/actuation inhaler ONE INHALATION EVERY 4 HOURS NEEDED FOR SHORTNESS OF BREATH OR WHEEZING 5 Active magnesium oxide 400 mg magnesium capsule Take 1 capsule by mouth nightly Active sodium chloride (SALINE NASAL MIST NASL) Administer into affected nostril(s) as needed Active coenzyme Q10 200 mg capsule Take 1 capsule (200 mg total) by mouth every morning Active cyanocobalamin (Vitamin B-12) 1,000 mcg tabletIndicati ons:Prevention of Vitamin B12 Deficiency Take 1 tablet (1,000 mcg total) by mouth nightly Active clopidogreL (PLAVIX) 75 mg tabletIndicati ons:coronary artery disease Take 1 tablet (75 mg total) by mouth daily 30 tablet 1 5 Active b complex vitamins capsule Take 1 capsule by mouth daily 025 Discontin ued(Other ) celecoxib (CeleBREX) 200 mg capsule Take 1 capsule (200 mg total) by mouth every morning 9 025 Discontin ued(Thera py completed ) L. gasseri-B. bifidum-B longum 1.5 billion cell capsule Take 1 tablet by mouth daily [facility] 025 Discontin ued(Other ) jzebpepnk-JA-q cetamin-guaife n [id number] mg tablet Take 1 tablet by mouth as needed 025 Discontin ued(Other ) ipratropium (ATROVENT) 42 mcg (0.06 %) nasal spray Administer 2 sprays into each nostril 4 (four) times a day Discontin ued(Other ) DULoxetine DR (CYMBALTA) 30 mg capsule Take 1 capsule (30 mg total) by mouth daily 5 025 Discontin ued(Other ) varenicline tartrate (Chantix) 1 mg tabletIndicati ons:Smoking Cessation Take 0.5 tablets (0.5 mg total) by mouth daily for 3 days, THEN 0.5 tablets (0.5 mg total) 2 (two) times a day for 4 days, THEN 1 tablet (1 mg total) 2 (two) times a day. Take with full glass of water. 160 tablet 5 Discontin ued(Other ) Active Problems Problem Noted Date Diagnosed Date S/P TAVR (transcatheter aortic valve replacement ) 05/08/2025 Allergies 04/15/2025 Bilateral primary osteoarthritis of knee Constipation 04/15/2025 Irritable bowel syndrome with constipation [...] aorta 04/15/2025 Atherosclerotic heart diseas e of la posta coronary artery without angina pectoris 04/15/2025 Essential [...] Myalgia 03/13/2020 Coronary artery disease invo lving la posta coronary artery of la posta heart without angina pectoris 09/05/2019 Nonrheumatic aortic [...] proceed. Assessment & Plan (10/31/2020 8:54 AM DIRECTOR OF RESOURCE DEVELOPMENT): Stable 3.5 cm fusiform infrarenal abdominal aortic aneurysm. Continue 6 month duplex surveillance. No indication for further workup or intervention at this time. Left wrist fracture 11/30/2017 History of fundoplication 11/22/2016 Status post abdominal aortic aneurysm (AAA) repa ir 11/22/2016 Assessment & Plan (09/12/2022 2:58 PM DIRECTOR OF RESOURCE DEVELOPMENT): Patient is following up today for her [...] therapy. Assessment & Plan (10/31/2020 8:54 AM DIRECTOR OF RESOURCE DEVELOPMENT): Per patient controlled. Continue medical therapy Tobacco use 05/23/2015 Overview (11/27/2016): Tobacco use Need for immunization against influenza 05/24/20 14 Positive antinuclear antibody 05/24/2014 Knee pain 05/24/2014 Resolved Problems Problem Noted Date Diagnosed Date Resolved Date Dyslipidemia 05/23/2015 12/17/2021 Overview (11/27/2016): Dyslipidemia Assessment & Plan (12/06/2021 1:08 PM CDT): Dyslipidemia chronic and controlled. Continue statin therapy. Assessment & Plan (10/31/2020 8:54 AM DIRECTOR OF RESOURCE DEVELOPMENT): Currently controlled. Continue statin therapy Encounters Date Type Department Care Team Description 05/11/[address] [facility] Medical [facility] Cardiology [address] [place] [address] Emre Camejo MD questions after TAVR 05/08/2025 8:00 AM CDT - 05/08/2025 10:00 AM CDT Surgery [facility] Cardiac Catheterization Lab [address] [place] [address] Emre Camejo MD TAVR - 05/08/2025 7:55 AM CDT Anesthesia Event [facility] Cardiac Catheterization Lab [address] [place] [address] Mayi Ding DO Becker, Scott C 05/08/2025 5:46 AM CDT - 05/09/2025 1:57 PM CDT Hospital Encounter [address] [address] Emre Camejo MD Severe aortic stenosis Discharge Disposition: Discharge to home or self care 04/28/2025 11:11 AM CDT - 04/28/2025 11:59 PM CDT Hospital Encounter [facility] Diagnostic Imaging [address] [place] [address] Discharge Disposition: Discharge to home or self care 04/28/2025 10:45 AM CDT Pre-Admission Testing [facility] Pre Anesthesia Testing [address] [place] [phone] Pre-op testing (Primary Dx) 04/17/2025 Orders Only [facility] Cardiac Catheterization Lab [address] [place] [address] Emre Camejo MD Severe aortic stenosis (Primary Dx) 04/15/2025 12:45 PM CDT Office Visit [facility] Care at [address] [phone] Kevin Ramirez NP Left facial swelling (Primary Dx); Erythema of face; Facial cellulitis 04/13/2025 Documentation Cardiothoracic Surgery Elena Pham RN 04/07/[address] [facility] Medical [facility] Vascular and Vein Surgery [facility] [address] [place] [phone] Juan David Ren MD Aftercare following surgery of the circulatory system (Primary Dx) 04/06/2025 1:15 PM CDT Office Visit [facility] Vascular and Vein Surgery [facility] [address] [place] [phone] Juan David Ren MD Infrarenal abdominal aortic aneurysm (AAA) without rupture (Primary Dx); Primary hypertension; Mixed hyperlipidemia 04/03/2025 1:00 PM CDT Office Visit [facility] [place] [place] Surgery [address] [facility] [address] [place] [address] Shiva Mcclellan Jr., MD Aortic valve stenosis, etiology of cardiac valve disease unspecified (Primary Dx) 03/27/2025 1:06 PM CDT - 03/27/2025 11:59 PM CDT Hospital Encounter [facility] Medical Office Building [address] [place] [address] Aftercare following surgery of the circulatory system Discharge Disposition: Discharge to home or self care 03/21/2025 8:32 AM CDT - 03/21/2025 11:59 PM CDT Hospital Encounter [facility] Respiratory [address] [place] [phone] Tobacco use; Current smoker; Preop examination Discharge Disposition: Discharge to home or self care 03/21/2025 7:28 AM CDT - 03/21/2025 11:59 PM CDT Hospital Encounter [facility] Imaging and Radiology [address] [place] [address] Aortic stenosis, severe Discharge Disposition: Discharge to home or self care 03/13/2025 Orders Only Cardiology Emre Camejo MD Tobacco use (Primary Dx); Current smoker; Preop examination; Aortic stenosis, severe 03/09/2025 10:00 AM CDT - 03/09/2025 11:30 AM CDT Surgery [facility] Cardiac Catheterization Lab [address] [place] [address] Emre Camejo MD RIGHT LEFT HEART CATHETERIZATION WITH CORONARY ANGIOGRAPHY GRAFT AND WITH OR WITHOUT LEFT VENTRICULOGRAPHY [id number] 03/09/2025 7:19 AM CDT - 03/09/2025 11:59 PM CDT Hospital Encounter [facility] Cardiac Catheterization Lab [address] [place] [address] Nonrheumatic aortic valve stenosis Discharge Disposition: Discharge to home or self care 03/09/2025 7:19 AM CDT - 03/09/2025 3:01 PM CDT Hospital Encounter [facility] Cardiac Catheterization Lab [address] [place] [address] Emre Camejo MD Nonrheumatic aortic valve stenosis; Severe aortic stenosis Discharge Disposition: Discharge to home or self care 02/27/[address] [facility] Medical Group Cardiology [address] [address] [address] [place] [address] Emre Camejo MD 02/23/[address] [facility] Medical Group Cardiology [address] [facility] [address], [place] [phone] Emre Camejo MD 02/22/2025 Cardiology Conference [facility] Non-invasive Cardiac Diagnostic Testing [address] [place] [address] Benja Mckeon RN from Last 3 Months Immunizations Immunization Administration [...] REPAIR 01/06/2022 PEVAR ABDOMINAL AORTIC ANEURYSM REPAIR 01/06/2022 CARDIAC CATHETERIZATION 03/09/2025 N/A Procedure: RIGHT LEFT HEART CATHETERIZATION WITH CORONARY ANGIOGRAPHY GRAFT AND WITH OR WITHOUT LEFT VENTRICULOGRAPHY [id number]; Surgeon: mEre Cameoj MD; Location: CARDIAC METER INSTALLER; Service: Cardiovascular; Laterality: N/A; ARA w/ LHC 03/09 at 10 Medical devices from this surgery are in the Medical Devices section. CARDIAC CATHETERIZATION 03/09/2025 N/A Procedure: ULTRASOUND GUIDANCE FOR VASCULAR ACCESS S&I [id number]; Surgeon: Emre Camejo MD; Location: CARDIAC METER INSTALLER; Service: Cardiovascular; Laterality: N/A; Medical devices from this surgery are in the Medical Devices section. AORTOGRAM 03/09/2025 Groin Procedure: AORTOGRAM; Surgeon: Emre Camejo MD; Location: CARDIAC METER INSTALLER; Service: Cardiovascular;; Medical devices from this surgery are in the Medical Devices section. CARDIAC CATHETERIZATION 03/09/2025 N/A Procedure: SELECTIVE CATH SUBCLAVIAN OR INNOMINATE ARTERY, UNILATERAL 60212; Surgeon: Emre Camejo MD; Location: CARDIAC METER INSTALLER; Service: Cardiovascular; Laterality: N/A; Medical devices from this surgery are in the Medical Devices section. CARDIAC CATHETERIZATION 05/08/2025 Chest/N/A Procedure: TAVR -; Surgeon: Emre Camejo MD; Location: CARDIAC METER INSTALLER; Service: Cardiovascular; Laterality: N/A; Medical devices from this surgery are in the Medical Devices section. Medical History Medical History Date Comments Anxiety disorder anxiety Osteoarthritis Gastroesophageal reflux disease Chronic coronary artery disease Aortic stenosis Hypertension Hyperlipidemia Insomnia Osteoporosis Arthritis joint pain Neuropathy AAA (abdominal aortic aneurysm) Severe aortic stenosis Family History Medical History Relation Name Comments Coronary artery disease Brother 2 Remi nary Artery Bypass Graft; Heart failure Father Congestive Hea rt Failure; Coronary artery disease Sister 2 Remi nary Artery Bypass Graft; Relation Name Status Comments Brother 1 Alive Brother 2 Father Mother Sister 1 Alive Sister 2 Social History Tobacco Use Types Packs/Day Years Used Date Smoking Tobacco: Every Day Cigarettes Smokeless Tobacco: Never Tobacco Cessation:Ready to Q uit: Yes; Counseling Given: Yes Comments:Smoking 1/2 ppd, instructions given not to smoke 24 hrs prior to surgery; smoking cessation booklet given to pt; Alcohol Use Standard Drinks/Week Comments Never 0 (1 standard drink = 0.6 oz pur e alcohol) Social Connection and Isolation Panel Answer Date Recorded In a typical week, how many times do you talk on the phone with family, friends, or neighbors? Once a week 05/09/2025 How often do you get togethe r with friends or relatives? Once a week 05/09/2025 How often do you attend chur or orthodox services? Never 05/09/2025 Do you belong to any clubs o r organizations such as mormonism groups, unions, fraternal or athletic groups, or school groups? Yes 05/09/2025 How often do you attend meet ings of the clubs or organizations you belong to? More than 4 times per year 05/09/2025 Are you , , di vorced, , never , or living with a partner? 05/09/2025 AUDIT-C Answer Date Recorded Q1: How often do you have a drink containing alcohol? Never 05/08/2025 Q2: How many drinks containi ng alcohol do you have on a typical day when you are drinking? Patient does not drink Q3: How often do you have si x or more drinks on one occasion? Never 05/08/2025 Overall Financial Resource Strain (CARDIA) Answe r Date Recorded How hard is it for you to pa y for the very basics like food, housing, medical care, and heating? Not hard at all 05/09/2025 Hunger Vital Sign Answer Date Recorded Within the past 12 months, y ou worried that your food would run out before you got the money to buy more. Never true 05/09/20 25 Within the past 12 months, t he food you bought just didn't last and you didn't have money to get more. Never true 05/09/2025 PRAPARE - Transportation Answer Date Re corded In the past 12 months, has l ack of transportation kept you from medical appointments or from getting medications? No 04/24 In the past 12 months, has l ack of transportation kept you from meetings, work, or from getting things needed for daily living? No 05/09/2025 Housing Stability Vital Sign Answer Jerry e Recorded In the last 12 months, was t here a time when you were not able to pay the mortgage or rent on time? No 05/09/2025 In the past 12 months, how m any times have you moved where you were living? 0 05/09/2025 At any time in the past [address] [facility], were you homeless or living in a [facility] (including now)? No 05/09/2025 [facility] Utilities Answer Date Recorded In the past 12 months has th e [employer], gas, oil, or water company threatened to shut off services in your home? No 05/09/2025 Personal Safety Answer Date Recorded Have you ever been in or are you currently in a harmful physical or emotional relationship or is someone making you feel afraid or unsafe? Denies 05/08/2025 Comments No Sex and Gender Information Value Date Recorded Sex Assigned at Not on file Legal Sex Female 9:26 PM DIRECTOR OF RESOURCE DEVELOPMENT Gender Identity Not on file Sexual Orientation Not on file Obstetrics History Last Filed Vital Signs Vital Sign Reading Time Taken Comments Blood Pressure 141/59 05/09/2025 12:20 PM CDT Pulse 72 05/09/2025 11:46 AM CDT Temperature 36.9 C (98.4 F) 05/09/2025 11:46 AM CDT Respiratory Rate 20 05/09/2025 11:46 AM CDT Oxygen Saturation 95% 05/09/2025 11:46 AM CDT Inhaled Oxygen Concentration - - Weight 49 kg (108 lb) 05/09/2025 6:40 AM CDT Height 157.5 cm (5' 2) 05/08/2025 6:12 AM CDT Body Mass Index 19.75 05/08/2025 6:12 AM CDT Plan of Treatment Health Maintenance Due Date Last Done Comments Depression Screening 1945 Hepatitis C Screening 1945 Osteoporosis Screening-Bone Density Scan 1945 DTaP/Tdap/Td Vaccine (1 - Tdap) 1958 Hepatitis B Screening 1965 Well Visit 65+ 2012 Covid-19 Vaccine (2024-2 6 season) 2025 08/08/2021, 11/12/2020, 10/11/2020 Influenza Vaccine (#1) 2025 , 09/01/2023, 06/21/2020, Additional history exists Fall Risk Assessment 05/09/2026 05/09/2025, 12/18/19 Pneumococcal vaccine 65+ Completed 10/21/2018, 11/2017 Zoster Vaccine Completed 08/07/2020, 07/24, 04/27/2020, Additional history exists Medical Devices Implanted Type Area Machinist Linotype Device Identifier Shelf Expiration Date Model / Serial / Lot Wl [employer] [id number] Excluder 12mm 23mm 12cm 5.5cm Conformable Active Control Trunk - [id number] - [id number] Implanted:Qty: 1 on 01/06/2022 by Juan David Ren MD at [facility] Endoprosthesis N/A: Aorta Wl [employer] [id number] 10/02/2024 [id number] / [id number] / Wl [employer] Excluder 12mm 10cm Contralateral Leg Graft Endovascular [id number] - [id number] - [id number] Implanted:Qty: 1 on 01/06/2022 by Juan David Ren MD at [facility] Endoprosthesis Right: Iliac Wl [employer] [id number] 10/20/2024 [id number] / [id number] / Wl [employer] Excluder 12mm 7cm Stent Electrocardiogram Technician Seal Cuff Iliac Graft [id number] - [id number] - [id number] Implanted:Qty: 1 on 01/06/2022 by Juan David Ren MD at [facility] Endoprosthesis Left: Iliac Wl [employer] [id number] 03/23/2024 [id number] / [id number] / Wl [employer] Viabahn 11mm 16sq Mm 8fr 59mm 135cm Balloon Expandable [id number] - [id number] - [id number] Implanted:Qty: 1 on 01/06/2022 by Juan David Ren MD at [facility] Endoprosthesis Wl [employer] [id number] 11/01/2024 [id number] / [id number] / Wl [employer] Viabahn 11mm 16sq Mm 8fr 59mm 135cm Balloon Expandable [id number] - [id number] - [id number] Implanted:Qty: 1 on 01/06/2022 by Juan David Ren MD at [facility] Endoprosthesis Wl [employer] 05/10/2022 [id number] [id number] / [id number] / Perclose 6fr Vascular Closure [id number] - [id number] Implanted:Qty: 1 on 01/06/2022 by Juan David Ren MD at [facility] [employer] 09/23/2023 43877-3 3 / / Perclose 6fr Vascular Closure 86175-85 - [id number] Implanted:Qty: 1 on 01/06/2022 by Juan David Ren MD at [facility] [employer] 09/23/2023 92516-2 3 / / Perclose 6fr Vascular Closure 16858-28 - [id number] Implanted:Qty: 1 on 01/06/2022 by Juan David Ren MD at [facility] [employer] 09/23/2023 48320-7 3 / / Perclose 6fr Vascular Closure 76038-44 - [id number] Implanted:Qty: 1 on 01/06/2022 by Juan David Ren MD at [facility] [employer] 09/23/2023 [id number] [id number] / / Access [employer] Device Vascular Closure Femoral Arterial Access 2 Mode Polyethylene Glycol Mynx Control 5fr [id number] - [id number] Implanted:Qty: 1 on 03/09/2025 by Emre Camejo MD at [facility] [employer] [id number] / / [employer] Vascular System Closure Repair Femoral Artery Suture Mediated Perclose Prostyle 63049-30 - [id number] Implanted:Qty: 1 on 05/08/2025 by Emre Camejo MD at [facility] [employer] 02/20/2027 21690-6 3 [id number] [employer] V[employer] System Closure Repair Femoral Artery Suture Mediated Perclose Prostyle 79705-38 - [id number] Implanted:Qty: 1 on 05/08/2025 by Emre Camejo MD at [facility] [employer] 02/20/2027 98733-7 3 [id number] [employer] Valve Aortic Trnscath Kierra 3 Ultra Resilia 23mm [id number] - [id number] - [id number] Implanted:Qty: 1 on 05/08/2025 by Emre Camejo MD at [facility] [employer] 12/30/2027 [id number] / [id number] / Access Closure Inc Device Vascular Closure Femoral Arterial Access 2 Mode Polyethylene Glycol Mynx Control 5fr [id number] - [id number] Implanted:Qty: 1 on 05/08/2025 by Emre Camejo MD at [facility] [employer] 04/05/2027 [id number] / / [id number] Procedures Procedure Name Priority Date/Time Associated Diagnosis Comments EGFR Routine 05/09/2025 8:25 AM CDT DIFFERENTIAL AUTO Routine 05/09/2025 8:2 5 AM CDT APTT Routine 05/09/2025 8:25 AM CDT PROTIME-INR Routine 05/09/2025 8:25 AM CDT CBC WITH AUTO DIFFERENTIAL Routine 05/09/2025 8:25 AM CDT PRO B-TYPE NATRIURETIC PEPTIDE Routine 05/09/2025 8:25 AM CDT COMPREHENSIVE METABOLIC PANEL Routine 05/09/2025 8:25 AM CDT MAGNESIUM Routine 05/09/2025 8:25 AM CDT TRANSTHORACIC ECHO (TTE) COMPLETE W DOPPLER/CF W CONTRAST Routine 05/09/2025 7:38 AM CDT ECG 12-LEAD Routine 05/09/2025 7:32 AM CDT XR CHEST 1 VIEW Routine 05/09/2025 6:32 AM CDT EGFR STAT 05/08/2025 2:58 PM CDT MAGNESIUM STAT 05/08/2025 2:58 PM CDT COMPREHENSIVE METABOLIC PANEL STAT 05/08/2025 2:58 PM CDT XR CHEST 1 VIEW Routine 05/08/2025 10:14 AM CDT TRANSCATHETER AORTIC VALVE REPLACEMENT (TAVR) OPEN FEMORAL ART APPROACH Routine 05/08/2025 9:25 AM CDT Severe aortic stenosis POCT ACTIVATED CLOTTING TIME, HIGH RANGE Routine 05/08/2025 8:50 AM CDT B CHECK SAMPLE STAT 05/08/2025 6:40 AM CDT PREPARE RBC STAT 05/08/2025 6:11 AM CDT EGFR Routine 04/28/2025 12:07 PM CDT DIFFERENTIAL AUTO Routine 04/28/2025 12:07 PM CDT PRO B-TYPE NATRIURETIC PEPTIDE Routine 04/28/2025 12:07 PM CDT APTT Routine 04/28/2025 12:07 PM CDT PROTIME-INR Routine 04/28/2025 12:07 PM CDT COMPREHENSIVE METABOLIC PANEL Routine 04/28/2025 12:07 PM CDT CBC WITH AUTO DIFFERENTIAL Routine 04/28/2025 12:07 PM CDT TYPE AND SCREEN Timed 04/28/2025 12:00 PM CDT ECG 12-LEAD Routine 04/28/2025 11:41 AM CDT Pre-op testing XR CHEST PA LATERAL 2 VIEWS IP Routine 04/28/2025 11:27 AM CDT US DUPLEX SCAN OF AORTA: INFERIOR VENA [...] Nonrheumatic aortic valve stenosis Severe aortic stenosis [facility] SBVIAN ART 12213 Routine 03/09/2025 11:36 AM CDT Nonrheumatic aortic [...] METABOLIC PANEL Routine 03/09/2025 8:41 AM CDT from Last 3 Months Results * eGFR (05/09/2025 8:25 AM CDT) eGFR 85 >=60 mL/min/1. 73 m2 Comment: Interpretive Data [...] of Race in Diagnosing Kidney Disease, JASN 2020). The CKD-EPI equation should not be used for patients with unstable renal function and has not been validated in children and those over 70. Current interpretive data was last reviewed 2021. Blood 05/09/2025 8:25 AM CDT 05/09/2025 8:36 AM CDT us Emre Camejo MD LAB BLOOD ORDERABLES Final Resul t [facility]EL[facility] [address] [address] Department [place] [address] * (ABNORMAL) Differential, auto (05/09/2025 8:25 AM CDT) Neutrophil abs 7.41(H) 1.50 - 6.50 K/cumm Imm gran abs 0.04 0.00 - 0.10 K/cumm [facility] Lymphocyte abs 1.28 0.80 - 3.30 K/cumm [facility] Monocyte abs 0.74 0.20 - 0.80 K/cumm [facility] Eosinophil abs 0.11 0.00 - 0.50 K/cumm [facility] Basophil abs 0.02 0.00 - 0.10 K/cumm [facility] Neutrophil pct 77.3 % [facility] Comment: Interpretive Data Percent cell count reference ranges are not reported, since discordance with absolute values may lead to misinterpretation of CBC data. Current Interpretive Data was last revised on 2017. Imm gran pct 0.4 % [facility] Comment: Interpretive Data Percent cell count reference ranges are not reported, since discordance with absolute values may lead to misinterpretation of CBC data. Current Interpretive Data was last revised on 2017. Lymphocyte pct 13.3 % [facility] Comment: Interpretive Data Percent cell count reference ranges are not reported, since discordance with absolute values may lead to misinterpretation of CBC data. Current Interpretive Data was last revised on 2017. Monocyte pct 7.7 % [facility] Comment: Interpretive Data Percent cell count reference ranges are not reported, since discordance with absolute values may lead to misinterpretation of CBC data. Current Interpretive Data was last revised on 2017. Eosinophil pct 1.1 % [facility] Comment: Interpretive Data Percent cell count reference ranges are not reported, since discordance with absolute values may lead to misinterpretation of CBC data. Current Interpretive Data was last revised on 2017. Basophil pct 0.2 % [facility] Comment: Interpretive Data Percent cell count reference ranges are not reported, since discordance with absolute values may lead to misinterpretation of CBC data. Current Interpretive Data was last revised on 2017. Blood 05/09/2025 8:25 AM CDT 05/09/2025 8:36 AM CDT us Emre Camejo MD LAB BLOOD ORDERABLES Final Resul t [address] Department [place] [address] * (ABNORMAL) Pro B-type natriuretic peptide (05/09/2025 8:25 AM CDT) NT-proBNP 876(H) <=450 pg/mL Comment: Interpretive Comments: A. Dyspnea in Acute Care Setting All Ages: < 300 pg/ml, acute heart failure unlikely. < 50 yrs: 300 - 450 pg/ml, further investigation warranted. > 450 pg/ml, acute heart failure likely. 50 - 74 yrs: 300 - 900 pg/ml, further investigation warranted. > 900 pg/ml, acute heart failure likely . > or = 75 yrs: 450 - 1800 pg/ml, further investigation warranted. > 1800 pg/ml, acute heart failure likely. B. Non-acute Setting < 75 yrs < 125 pg/ml, rules out heart failure. > or = 125 pg/ml, further investigation warranted. > or = 75 yrs < 450 pg/ml, rules out heart failure. > or = 450 pg/ml, further investigation warranted. - Knowledge of each individual patient's NT-proBNP range may be more useful than using similar cut-points for every patient. Please note that marked elevations in NT-proBNP levels may be observed in state other than Left Ventricular Congestive Failure, including: acute coronary syndromes, right heart strain/failure (including pulmonary embolism and cor pulmonale), critical illness, renal failure, as well as advanced age. - References: 1. Gildardo AHMADI et.al. Eur Heart J. 2006:27:330-337. 2. Gary RW, Walker AM. J. AM Thelma Cardiol: Cardiovasc Imag. 2009;2: 216- 225. Interpretive Data Last Revised Date: 2018. Blood 05/09/2025 8:25 AM CDT 05/09/2025 8:36 AM CDT us Emre Camejo MD LAB BLOOD ORDERABLES Final Resul t [address] [place] [address] [address] Department [place] [address] * (ABNORMAL) CBC with auto differential (05/09/2025 8:25 AM CDT) Pathologist [facility] WBC 9.60 3.80 - 9.90 K/cumm Hgb 10.6(L) 11.9 - 15.5 g/dL [facility] Hct 31.6(L) 35.6 - 45.5 % [facility] Plt 149(L) 150 - 400 K/cumm [facility] MPV 10.9 9.1 - 12.3 fL [facility] RBC 3.58(L) 3.90 - 5.20 M/cumm [facility] MCV 88.3 81.3 - 96.4 fL [facility] MCH 29.6 27.1 - 33.3 pg [facility] MCHC 33.5 32.3 - 35.7 g/dL [facility] RDW CV 15.0(H) 11.1 - 14.9 % [facility] RDW SD 48.7(H) 35.7 - 48.1 fL [facility] NRBC abs 0.00 0.00 - 0.01 K/cumm [facility] Blood 05/09/2025 8:25 AM CDT 05/09/2025 8:36 AM CDT Emre Camejo MD LAB BLOOD ORDERABLES Final Resul t Performing Organization Address [facility] Co de Phone Number [address] [place] [place] [place] [address] * aPTT (05/09/2025 8:25 AM CDT) aPTT 30 26 - 38 sec Comment: Interpretive Data Heparin therapeutic range: 66.0 - 100.0 seconds. Range based on correlation with therapeutic heparin activity range of 0.3 - 0.7 Units/mL. Current interpretive data was last revised on 2023. Blood 05/09/2025 8:25 AM CDT 05/09/2025 8:37 AM CDT Emre Camejo MD LAB BLOOD ORDERABLES Final Resul t Performing Organization Address [facility] Co de Phone Number [address] [place] [address] [address] [place] [address] * Protime-INR (05/09/2025 8:25 AM CDT) PT 12.0 10.2 - 13.5 sec INR 1.06 0.90 - 1.20 [facility] Comment: Interpretive data Oral anticoagulant therapeutic ranges: Venous thromboembolism prophylaxis or treatment: 2.0-3.0 CARDIOLOGY Standard range: 2.0-3.0 High-intensity range: 2.5-3.5 Refer to indication-specific guidelines for appropriate target ranges for prosthetic heart valve replacement. Current interpretive data was last revised on 2019. Blood 05/09/2025 8:25 AM CDT 05/09/2025 8:37 AM CDT Emre Camejo MD LAB BLOOD ORDERABLES Final Resul t Performing Organization Address [facility] Co de Phone Number [address] [address] [address] [facility] [place] [address] * Magnesium (05/09/2025 8:25 AM CDT) Pathologist [facility] Magnesium 1.8 1.4 - 2.5 mg/dL Blood 05/09/2025 8:25 AM CDT 05/09/2025 8:36 AM CDT Emre Camejo MD LAB BLOOD ORDERABLES Final Resul t Performing Organization Address [facility] Co de Phone Number [facility] [id number] [address] [facility] [place] [address] * Comprehensive metabolic panel (05/09/2025 8:25 AM CDT) Sodium 137 135 - 145 mmol/L Potassium, pl 3.4 3.3 - 4.9 mmol/L [facility] Chloride 101 97 - 110 mmol/L [facility] CO2 24 22 - 32 mmol/L [facility] Anion gap 12 2 - 15 mmol/L [facility] BUN 8 6 - 25 mg/dL [facility] Creatinine 0.73 0.60 - 1.10 mg/dL [facility] Glucose 132 70 - 199 mg/dL [facility] Comment: Interpretive Data Fasting glucose >/= 126 [...] interpretive data was last revised 2022. Calcium 8.9 8.5 - 10.3 mg/dL [facility] Bilirubin, total 0.7 0.1 - 1.2 mg/dL [facility] Protein, pl 6.9 6.5 - 8.5 g/dL [facility] Albumin 4.0 3.5 - 5.0 g/dL [facility] Alk phos 102 40 - 130 Units/L [facility] ALT 10 7 - 45 Units/L [facility] AST 29 10 - 45 Units/L [facility] Blood 05/09/2025 8:25 AM CDT 05/09/2025 8:36 AM CDT us Emre Camejo MD LAB BLOOD ORDERABLES Final Resul t [address] [address] [facility] Department of Laboratories [place] [phone] * TRANSTHORACIC ECHO (TTE) COMPLETE W DOPPLER/CF W CONTRAST (05/09/2025 7:38 AM CDT) Estimated EF 45 % CONS SCIMAGE Anatomical Region Laterality Modality Ultrasound 05/09/2025 6:54 AM CDT Narrative 05/09/2025 8:41 [place] [address] Echocardiogram Report Patient Name: LISA ALONZO L : 1945 Study Date: 05/09/2025 6:54:44 AM Sex: F Tech: Location: [id number] Ref Provider: EMRE CAMEJO Height(Cm): 157 BSA: 1.48 Weight(Kg): 50 Heart Rate: 101 BP: 141 / 55 Quality: Good Order Provider: EMRE CAMEJO Report amended on 2025-05-09 at 11:01:36 CDT: Added/Modified: Aortic Valve [ADDED]: [ADDED] Bio-prosthesis Appearance: Normal appearing aortic valve bioprosthesis. Conclusions [ADDED]: [ADDED] Aortic Valve Findings: Normal structure of the aortic valve. Normal appearing aortic valve bioprosthesis. Previously Signed by:Darnell Cardenas MD 2025-05-09 08:40:32 CDT End of Addendum PROCEDURES: Echocardiographic Report: Transthoracic echocardiogram with complete 2D, M-Mode, color Doppler examination and contrast. INDICATIONS: S/P TAVR 23mm Desir Kierra. MEASUREMENTS: 2D/MM Value Range Doppler Value Range EF Teich 2D 45.4 percent [ 54.0 - 74.0 ] LUIS MIGUEL Vmax 2.79 cm2 Estimated EF 45 % AV Mean PG 11 mmHg LVIDd 2D 5.72 cm [ 3.80 - 5.20 ] AV Peak Cole 2.28 m/s [ 1.00 - 1.70 ] LVIDs 2D 4.41 cm [ 2.20 - 3.50 ] AV VTI 43.24 cm LVPWd 2D 1.10 cm [ 0.60 - 0.90 ] LVOT Diam 2.29 cm IVSd 2D 1.04 cm [ 0.60 - 0.90 ] LVOT Peak Cole 1.05 m/s [ 0.70 - 1.10 ] LA Dimension 2D 3.94 cm [ 2.70 - 3.80 ] LVOT VTI 23.98 cm LA Dimension MM 4.38 cm [ 2.70 - 3.80 ] SI LVOT 77.0 ml/m2 [ >= 35.0 ] AoR Diam 2D 2.80 cm [ 2.70 - 3.70 ] MV E Peak Cole 0.86 m/s [ 0.60 - 1.30 ] AoR Diam MM 2.60 cm [ 2.70 - 3.70 ] MV A Peak Cole 1.19 m/s [ 1.00 - 1.20 ] LA Volume Index 34.96 cc/m2 [ 16.00 - 34.00 ] MV Mean PG 3 mmHg MV PHT 79 msec [ 20 - 100 ] MVA PHT 2.80 cm2 MV Decel Time 163 msec [ 104 - 258 ] PV Peak Cole 1.20 m/s [ 0.40 - 0.80 ] TR Peak Cole 2.64 m/s [ 1.00 - 2.80 ] TR Peak PG 28 mmHg E` 0.05 m/s E/E` 10.74 2D/MM Value Range Doppler Value Range - FINDINGS: Atrial Septum: Normal atrial septum. Left Ventricle: Mild enlargement of left ventricle cavity. Optison contrast agent used to visually enhance endocardial wall motion and contractility. Mild concentric left ventricular hypertrophy. Mild global left ventricular systolic dysfunction. Impaired diastolic relaxation Grade I. Ejection Fraction is visually estimated to be 45 %. There is global hypokinesis involving all segments of the LV. Left Atrium: There is mild enlargement of left atrium. Right Ventricle: Normal right ventricular size. Normal right ventricular systolic function. Right Atrium: The right atrium is normal in size. Aortic Valve: Normal structure of the aortic valve. Normal appearing aortic valve bioprosthesis. Mitral Valve: Mitral valve leaflets appear mildly thickened. Mild mitral valve regurgitation. Pulmonic Valve: Normal structure of the pulmonic valve. Tricuspid Valve: Estimated peak RVSP is 38 mmHg. Mild tricuspid regurgitation. Pericardium: Normal pericardium with no significant pericardial effusion. Aorta: Normal aortic root. IVC: Normal size and normal respiratory collapse consistent with normal right atrial pressure (<5 mmHg). Pulmonary Artery: Normal pulmonary artery size. CONCLUSIONS: Mild enlargement of left ventricle cavity. Optison contrast agent used to visually enhance endocardial wall motion and contractility. Mild concentric left ventricular hypertrophy. Mild global left ventricular systolic dysfunction. Impaired diastolic relaxation Grade I. Ejection Fraction is visually estimated to be 45 %. There is global hypokinesis involving all segments of the LV. There is mild enlargement of left atrium. Mitral valve leaflets appear mildly thickened. Mild mitral valve regurgitation. Normal structure of the aortic valve. Normal appearing aortic valve bioprosthesis. Estimated peak RVSP is 38 mmHg. Mild tricuspid regurgitation. Electronically Signed By: Darnell Cardenas MD 2025-05-09 08:40:32 CDT Electronically Amended By: Darnell Cardenas MD 05/09/2025 11:01:36 AM CDT [ADDENDUM] Procedure Note Eugene Cardenas MD - 05/09/2025 [place] [address] Echocardiogram Report Patient Name: LISA ALONZO L : 1945 Study Date: 05/09/2025 6:54:44 AM Sex: F Tech: Location: [id number] Ref Provider: EMRE CAMEJO Height(Cm): 157 BSA: 1.48 Weight(Kg): 50 Heart Rate: 101 BP: 141 / 55 Quality: Good Order Provider: EMRE CAMEJO Report amended on 2025-05-09 at 11:01:36 CDT: Added/Modified: Aortic Valve [ADDED]: [ADDED] Bio-prosthesis Appearance: Normal appearing aortic valvebioprosthesis. Conclusions [ADDED]: [ADDED] Aortic Valve Findings: Normal structure of the aortic valve.Normal appearing aortic valve bioprosthesis. Previously Signed by:Darnell Cardenas MD 2025-05-09 08:40:32 CDT End of Addendum PROCEDURES: Echocardiographic Report: Transthoracic echocardiogram with complete 2D, M-Mode, color Dopplerexamination and contrast. INDICATIONS: S/P TAVR 23mm Desir Kierra. MEASUREMENTS: 2D/MM Value Range DopplerValue Range EF Teich 2D 45.4 percent [ 54.0 - 74.0 ] LUIS MIGUEL Vmax2.79 cm2 Estimated EF 45 % AV Mean PG11 mmHg LVIDd 2D 5.72 cm [ 3.80 - 5.20 ] AV Peak Vel2.28 m/s [ 1.00 - 1.70 ] LVIDs 2D 4.41 cm [ 2.20 - 3.50 ] AV VTI43.24 cm LVPWd 2D 1.10 cm [ 0.60 - 0.90 ] LVOT Diam2.29 cm IVSd 2D 1.04 cm [ 0.60 - 0.90 ] LVOT Peak Vel1.05 m/s [ 0.70 - 1.10 ] LA Dimension 2D 3.94 cm [ 2.70 - 3.80 ] LVOT VTI23.98 cm LA Dimension MM 4.38 cm [ 2.70 - 3.80 ] SI LVOT77.0 ml/m2 [ >= 35.0 ] AoR Diam 2D 2.80 cm [ 2.70 - 3.70 ] MV E Peak Vel0.86 m/s [ 0.60 - 1.30 ] AoR Diam MM 2.60 cm [ 2.70 - 3.70 ] MV A Peak Vel1.19 m/s [ 1.00 - 1.20 ] LA Volume Index 34.96 cc/m2 [ 16.00 - 34.00 ] MV Mean PG 3mmHg MV PHT 79 msec [ 20 - 100 ] MVA PHT 2.80 cm2 MV Decel Time 163 msec [ 104 - 258 ] PV Peak Cole 1.20 m/s [ 0.40 - 0.80 ] TR Peak Cole 2.64 m/s [ 1.00 - 2.80 ] TR Peak PG 28 mmHg E` 0.05 m/s E/E` 10.74 2D/MM Value Range DopplerValue Range - FINDINGS: Atrial Septum: Normal atrial septum. Left Ventricle: Mild enlargement of left ventricle cavity. Optison contrast agent used tovisually enhance endocardial wall motion and contractility. Mild concentric leftventricular hypertrophy. Mild global left ventricular systolic dysfunction. Impaireddiastolic relaxation Grade I. Ejection Fraction is visually estimated to be 45 %.There is global hypokinesis involving all segments of the LV. Left Atrium: There is mild enlargement of left atrium. Right Ventricle: Normal right ventricular size. Normal right ventricular systolicfunction. Right Atrium: The right atrium is normal in size. Aortic Valve: Normal structure of the aortic valve. Normal appearing aortic valvebioprosthesis. Mitral Valve: Mitral valve leaflets appear mildly thickened. Mild mitral valveregurgitation. Pulmonic Valve: Normal structure of the pulmonic valve. Tricuspid Valve: Estimated peak RVSP is 38 mmHg. Mild tricuspid regurgitation. Pericardium: Normal pericardium with no significant pericardial effusion. Aorta: Normal aortic root. IVC: Normal size and normal respiratory collapse consistent with normal rightatrial pressure (<5 mmHg). Pulmonary Artery: Normal pulmonary artery size. CONCLUSIONS: Mild enlargement of left ventricle cavity. Optison contrast agent used tovisually enhance endocardial wall motion and contractility. Mild concentric leftventricular hypertrophy. Mild global left ventricular systolic dysfunction. Impaireddiastolic relaxation Grade I. Ejection Fraction is visually estimated to be 45 %.There is global hypokinesis involving all segments of the LV. There is mild enlargement of left atrium. Mitral valve leaflets appear mildly thickened. Mild mitral valveregurgitation. Normal structure of the aortic valve. Normal appearing aortic valvebioprosthesis. Estimated peak RVSP is 38 mmHg. Mild tricuspid regurgitation. Electronically Signed By: Darnell Cardenas MD 2025-05-09 08:40:32 CDT Electronically Amended By: Darnell Cardenas MD 05/09/2025 11:01:36 AM CDT [ADDENDUM] us Emre Camejo MD CV ECHO PROCEDURES Edited Result - Final * ECG 12 lead (05/09/2025 7:32 AM CDT) 05/09/2025 7:32 AM CDT Narrative [facility] - 05/09/2025 8:43 AM CDT Vent Rate: 87 bpm RR Interval: 688 msec UT Interval: 151 msec QRS Duration: 80 msec QT Interval: 354 msec QTC Interval: 398 msec P-R-T [place]: 37 - 5 - 101 degrees IMPRESSION: SINUS RHYTHM WITH FREQUENT VENTRICULAR PREMATURE COMPLEXES ST DEVIATION AND MODERATE T-WAVE ABNORMALITY, CONSIDER LATERAL ISCHEMIA [-0.1+ mV T-WAVE IN I/aVL/V5/V6] ABNORMAL ECG FREQUENT PVCS ARE NEW Electronically Signed By: Darnell Cardenas MD Result [facility] Emre Camejo MD ECG ORDERABLES Final Result [facility] * X-ray chest 1 view (Portable) (05/09/2025 6:32 AM CDT) Anatomical Region Laterality Modality Body, Chest N/A Computed Radiogr aphy 05/09/2025 8:37 AM CDT Impressions 05/09/2025 8:37 AM CDT Mild vascular congestion. Electronically signed by: Elias Cordoba M.D. Narrative 05/09/2025 8:37 AM CDT EXAMINATION: XR CHEST 1 VIEW HISTORY: The patient is a 79-year-old female who has had a TAVR procedure. Comparison is made with the previous study dated 05/08/2025. TECHNIQUE: AP portable view of the chest. FINDINGS: Borderline cardiomegaly with aortic atherosclerosis. Mild degree of vascular congestion. TAVR device. No focal infiltrate. Procedure Note Elias Cordoba MD - 05/09/2025 EXAMINATION: XR CHEST 1 VIEW HISTORY: The patient is a 79-year-old female who has had a TAVR procedure. Comparison is made with the previous study dated 05/08/2025. TECHNIQUE: AP portable view of the chest. FINDINGS: Borderline cardiomegaly with aortic atherosclerosis. Mild degree of vascular congestion. TAVR device. No focal infiltrate. IMPRESSION: Mild vascular congestion. Electronically signed by: Elias Cordoba M.D. Emre Camejo MD IMG XR PROCEDURES Final Result * eGFR (05/08/2025 2:58 PM CDT) eGFR 79 >=60 mL/min/1. 73 m2 Comment: Interpretive Data [...] of Race in Diagnosing Kidney Disease, JASN 2020). The CKD-EPI equation should not be used for patients with unstable renal function and has not been validated in children and those over 70. Current interpretive data was last reviewed 2021. Blood 05/08/2025 2:58 PM CDT 05/08/2025 3:03 PM CDT Deysi Iyer SSDS MK 2 ADVANCED OPERATOR LAB BLOOD ORDERABLES Final Resul t Performing Organization Address [facility] Co de Phone Number [facility] [address] [address] [place] [place] [address] * Magnesium (05/08/2025 2:58 PM CDT) Magnesium 1.8 1.4 - 2.5 mg/dL Blood 05/08/2025 2:58 PM CDT 05/08/2025 3:03 PM CDT Deysi Jaylon DESHPANDE LAB BLOOD ORDERABLES Final Resul t Performing Organization Address [facility] Co de Phone Number [facility] [address] [address] [facility] [address] [place], [place] [id number] * Comprehensive metabolic panel (05/08/2025 2:58 PM CDT) Sodium 137 135 - 145 mmol/L Potassium, pl 3.6 3.3 - 4.9 mmol/L [facility] Chloride 101 97 - 110 mmol/L [facility] CO2 24 22 - 32 mmol/L [facility] Anion gap 12 2 - 15 mmol/L [facility] BUN 7 6 - 25 mg/dL [facility] Creatinine 0.77 0.60 - 1.10 mg/dL [facility] Glucose 115 70 - 199 mg/dL [facility] Comment: Interpretive Data Fasting glucose >/= 126 [...] classification and Diagnosis of Diabetes Diabetes Care 202; 46: S19-S40. Current interpretive data was last revised 2022. Calcium 8.8 8.5 - 10.3 mg/dL [facility] Bilirubin, total 0.4 0.1 - 1.2 mg/dL [facility] Protein, pl 6.6 6.5 - 8.5 g/dL [facility] Albumin 3.9 3.5 - 5.0 g/dL [facility] Alk phos 103 40 - 130 Units/L [facility] ALT 13 7 - 45 Units/L [facility] AST 29 10 - 45 Units/L [facility] Blood 05/08/2025 2:58 PM CDT 05/08/2025 3:03 PM CDT Deysi Iyer NP LAB BLOOD ORDERABLES Final Resul t [facility] [place] [address] [address] Department of Laboratories [place], [place] [id number] * X-ray chest 1 view (Portable) (05/08/2025 10:14 AM CDT) Anatomical Region Laterality Modality Body, Chest N/A Computed Radiogr aphy 05/08/2025 1:46 PM CDT Impressions 05/08/2025 1:46 PM CDT Cardiomegaly with pulmonary vascular congestion. Electronically signed by: Elias Cordoba M.D. Narrative 05/08/2025 1:46 PM CDT EXAMINATION: XR CHEST 1 VIEW HISTORY: The patient is a 79-year-old female who has had recent TAVR device. Comparison made with the previous study dated 04/28/2025. TECHNIQUE: AP portable view of the chest. FINDINGS: Is a TAVR device in place. Cardiomegaly with aortic atherosclerosis. Findings of pulmonary vascular congestion are seen. No focal consolidation. The distal tip of a left central line is in the central portion of the left subclavian vein. Procedure Note Elias Cordoba MD - 05/08/2025 EXAMINATION: XR CHEST 1 VIEW HISTORY: The patient is a 79-year-old female who has had recent TAVR device. Comparison made with the previous study dated 04/28/2025. TECHNIQUE: AP portable view of the chest. FINDINGS: Is a TAVR device in place. Cardiomegaly with aortic atherosclerosis. Findings of pulmonary vascular congestion are seen. No focal consolidation. The distal tip of a left central line is in the central portion of the left subclavian vein. IMPRESSION: Cardiomegaly with pulmonary vascular congestion. Electronically signed by: Elias Cordoba M.D. Emre Camejo MD IMG XR PROCEDURES Final Result * TRANSCATHETER AORTIC VALVE REPLACEMENT (TAVR) OPEN FEMORAL ART APPROACH (05/08/2025 9:25 AM CDT) Anatomical Region Laterality Modality X-Ray Angiograph y Narrative 05/08/2025 9:42 AM CDT TRANSCATHETER AORTIC VALVE REPLACEMENT (TAVR) REPORT DATE OF PROCEDURE: 05/08/25 INDICATION FOR PROCEDURE: Severe, symptomatic aortic stenosis with multiple comorbidities BRIEF CLINICAL HISTORY: Lisa Alonzo is a 79 y.o. female with CAD, history of remote CABG x3 in 1995 at [facility] (unknown grafts, operative report not available); aortic stenosis, infrarenal AAA status post EVAR on 01/06/2022 at [facility], hypertension, anxiety, heavy tobacco abuse. Patient has aortic stenosis with recent echo from 02/02/2025 reportedly showing normal LVEF, calcified aortic valve, V max 3.6 m/sec, relatively low mean gradient 34 mmHg, LUIS MIGUEL 0.8 cm2. Patient has been experiencing worsening dyspnea on exertion, although she has sedentary lifestyle. She had a repeat dedicated echo for aortic stenosis on 03/09/2025 before cardiac catheterization which showed preserved LV systolic function, calcified aortic valve with restricted leaflet mobility; severe aortic stenosis with relatively low mean gradient. V max 3.5 m/sec. Mean gradient 30 mmHg. DVI 0.25; Valve area 0.8 cm2, Mild aortic regurgitation. Cardiac catheterization on 03/09/2025 showed severe la posta vessel CAD; patent SVG to dominant LCX/LPDA, patent aortocoronary graft to LAD. Patient has history of EVAR. Her case was discussed by multidisciplinary heart team, and she was deemed to be an appropriate candidate for transfemoral TAVR, with the possibility of alternate access if necessary. Benefits and risks of the procedure were discussed with the patient in depth, and informed consent was taken prior to the procedure. Risks of the procedure include but are not limited to vascular complications like groin hematoma, retroperitoneal bleed, vessel perforation; periprocedural AL, stroke; cardiac arrhythmias including conduction abnormality requiring pacemaker placement; contrast induced nephropathy, . After discussing all the benefits, risks and alternatives, patient was willing to proceed with the procedure. PROCEDURES PERFORMED: Successful transcatheter aortic valve replacement (TAVR) using 23 mm Desir Kierra 3 Ultra Resilia pericardial tissue valve Placement of temporary transvenous pacemaker Aortogram Distal abdominal aortogram with bilateral iliac runoff; selective right and left common femoral angiogram Deployment of 2 ProGlide suture mediated closure device at the right common femoral artery access site; deployment of Mynx vascular closure device at left common femoral artery access site SEDATION: Monitored anesthesia care (MAC) - by anesthesiology team CO-OPERATORS: Joselito Warren MD (CT surgeon) ACCESS SITES: Right and left common femoral arteries; left common femoral vein PROCEDURE: After obtaining informed consent, patient was brought to the lab manager and prepped and draped in the usual sterile manner. Time-out and immediate reassessment of the patient was performed. Patient was placed under MAC by the anesthesiologist team. Right common femoral artery access was taken with micropuncture needle under ultrasound guidance followed by insertion of a 6 Northern [place] sheath over a 0.035 inch wire. Left common femoral artery access was taken with micropuncture needle under ultrasound guidance followed by insertion of a 6 [place] sheath over a 0.035 inch wire. Left common femoral venous access was taken with micropuncture needle under ultrasound guidance followed by insertion of a long 6 Northern Irish sheath. A balloon tipped transvenous pacemaker was placed through the venous sheath under fluoroscopic guidance and was positioned in the right ventricle. Pacing thresholds were checked. The 5-Northern Irish pigtail catheter was then advanced into the aortic root through left common femoral arterial sheath. The pigtail catheter was placed in the non-coronary cusp for cusp isolation technique. An aortogram was performed in the coplanar view. Next, two ProGlide suture mediated vascular closure devices were placed in the right common femoral arterial access site. Patient received a total of 8000 units of heparin for procedural anticoagulation. ACT was monitored throughout the procedure. Next, the 6-Northern Irish arterial sheath on the right femoral artery was removed and a 14 Northern Irish Desir sheath was inserted into the abdominal aorta under fluoroscopic guidance over Lunderquist wire. Note that patient has history of EVAR. The Desir sheath was advanced carefully and without difficulty. A 5 Northern Irish AL1 catheter was advanced over a 035 wire into the aortic root. The aortic valve was then crossed using a 0.35 straight-tipped wire. The AL1 catheter was advanced in the LV cavity, and then it was exchanged with a pigtail catheter using a long 035 exchange length wire. LVEDP was measured at 24 mmHg. Pigtail catheter was taken out over Safari wire. Following this, the 23 mm Desir Kierra 3 valve delivery system was advanced under fluoroscopic guidance and after carefully navigating the aortic arch, the valve delivery catheter was advanced across the aortic valve under fluoroscopic guidance. Fluoroscopy was performed to ensure appropriate placement along with aortography. The transcatheter valve was deployed while rapid right ventricular pacing with extra 1 cc volume. The balloon was deflated and the delivery catheter was retrieved into the aorta over the safari wire. Surface echocardiogram was performed, and there was no significant aortic insufficiency or paravalvular leak seen postdeployment. The mean gradient across aortic valve was measured at 5 mmHg; V max 1.4 m/sec. The delivery system was removed. Patient received 40 mg of protamine. The hemostasis was achieved by deployment of 2 ProGlide devices in the right common femoral artery. Distal abdominal aortogram with bilateral iliac runoff was performed using the 5 Northern Irish pigtail catheter. The pelvic angiogram showed preserved flow in the iliac arteries without any angiographically visible dissection. A Mynx vascular closure device was deployed at left common femoral arterial access site. The temporary pacemaker wire was taken out in the lab manager. Manual pressure was used for venous access site. Estimated blood loss minimal. All specimens removed. Patient remained in sinus rhythm after the procedure with PVCs, which were also observed preprocedure. Patient tolerated procedure well without any immediate procedural complications. Patient was transferred to the telemetry bed in hemodynamically stable condition. Patient's family/ was updated about the procedure. CONCLUSIONS: Successful transfemoral TAVR using 23 mm Desir Kierra 3 Ultra Resilia pericardial tissue valve. PLAN/RECOMMENDATIONS: Patient will be admitted to the telemetry unit and will be monitored for any postprocedure vascular, cardiac or neurological complications. Heart rhythm will be monitored closely. EKG and echocardiogram will be performed during the hospitalization prior to discharge. Voice recognition software was used to complete this document, therefore, procurement inspector variances may occur. Emre Camejo MD, [facility] 05/08/25 Emre Camejo MD CV CARDIAC CATH PROCEDURES Final Result * (ABNORMAL) POC Activated Clotting Time, High Range (05/08/2025 8:50 AM CDT) ACT 353(H) 87 - 138 sec Blood 05/08/2025 8:50 AM CDT 05/08/2025 8:50 AM CDT Emre Camejo MD LAB BLOOD ORDERABLES Final Resul t Performing Organization Address City/State/[facility] Co de Phone Number ANTIONETTE PATTERSON [address] Department [place] [address] * Check Sample (05/08/2025 6:40 AM CDT) ABO Rh O Negative CH HCLL OTHER 05/08/2025 6:40 AM CDT 05/08/2025 7:00 AM CDT Emre Camejo MD LAB BLOOD ORDERABLES Final Resul t Performing Organization Address City/[facility] Co de Phone Number ANTIONETTE PATTERSON [address] [place] [address] CH * Prepare RBC: 2 Units (05/08/2025 6:11 AM CDT) Product code [id number] [facility] Unit Number [id number] 9-Z [facility] Product Blood Type ONEG [facility] Dispense Status RETURNED [facility] Product code [id number] Unit Number [id number] 8-H [facility] Product Blood Type ONEG [facility] Dispense Status RETURNED [facility] Blood 05/08/2025 6:11 AM CDT Narrative [facility] - 05/09/2025 2:45 AM CDT Specify Procedure:->TAVR Are special requirements needed? (All products are leukoreduced and CMV- safe)- >No Date required:-[id number] LRRBC # of [id number] Reasons:-Hold for procedure (specify procedure)} us Emre Camejo MD BLOOD BANK PRODUCT ORDERABLES Fi nal Result Performing Organization Address [facility] Co de Phone Number ANTIONETTE PATTERSON [address] [place] [address] * eGFR (04/28/2025 12:07 PM CDT) eGFR 88 >=60 mL/min/1. 73 m2 Comment: Interpretive Data [...] of Race in Diagnosing Kidney Disease, JASN 2020). The CKD-EPI equation should not be used for patients with unstable renal function and has not been validated in children and those over 70. Current interpretive data was last reviewed 2021. Blood 04/28/2025 12:0 7 PM CDT 04/28/2025 12:07 PM CDT us Emre Camejo MD LAB BLOOD ORDERABLES Final Resul t [facility] [address] Department [place] [address] * Differential, auto (04/28/2025 12:07 PM CDT) Neutrophil abs 4.67 1.50 - 6.50 K/cumm Imm gran abs 0.02 0.00 - 0.10 K/cumm [facility] CH Lymphocyte abs 1.73 0.80 - 3.30 K/cumm [facility] Monocyte abs 0.49 0.20 - 0.80 K/cumm [facility] Eosinophil abs 0.37 0.00 - 0.50 K/cumm [facility] Basophil abs 0.06 0.00 - 0.10 K/cumm [facility] Neutrophil pct 63.6 % [facility] Comment: Interpretive Data Percent cell count reference ranges are not reported, since discordance with absolute values may lead to misinterpretation of CBC data. Current Interpretive Data was last revised on 2017. Imm gran pct 0.3 % [facility] Comment: Interpretive Data Percent cell count reference ranges are not reported, since discordance with absolute values may lead to misinterpretation of CBC data. Current Interpretive Data was last revised on 2017. Lymphocyte pct 23.6 % [facility] Comment: Interpretive Data Percent cell count reference ranges are not reported, since discordance with absolute values may lead to misinterpretation of CBC data. Current Interpretive Data was last revised on 2017. Monocyte pct 6.7 % [facility] Comment: Interpretive Data Percent cell count reference ranges are not reported, since discordance with absolute values may lead to misinterpretation of CBC data. Current Interpretive Data was last revised on 2017. Eosinophil pct 5.0 % [facility] Comment: Interpretive Data Percent cell count reference ranges are not reported, since discordance with absolute values may lead to misinterpretation of CBC data. Current Interpretive Data was last revised on 2017. Basophil pct 0.8 % [facility] Comment: Interpretive Data Percent cell count reference ranges are not reported, since discordance with absolute values may lead to misinterpretation of CBC data. Current Interpretive Data was last revised on 2017. Blood 04/28/2025 12:0 7 PM CDT 04/28/2025 12:07 PM CDT us Emre Camejo MD LAB BLOOD ORDERABLES Final Resul t [facility]TIONETTE PATTERSON [address] Department [place] [address] * Pro B-type natriuretic peptide (04/28/2025 12:07 PM CDT) NT-proBNP 427 <=450 pg/mL Comment: Interpretive Comments: A. Dyspnea in Acute Care Setting All Ages: < 300 pg/ml, acute heart failure unlikely. < 50 yrs: 300 - 450 pg/ml, further investigation warranted. > 450 pg/ml, acute heart failure likely. 50 - 74 yrs: 300 - 900 pg/ml, further investigation warranted. > 900 pg/ml, acute heart failure likely . > or = 75 yrs: 450 - 1800 pg/ml, further investigation warranted. > 1800 pg/ml, acute heart failure likely. B. Non-acute Setting < 75 yrs < 125 pg/ml, rules out heart failure. > or = 125 pg/ml, further investigation warranted. > or = 75 yrs < 450 pg/ml, rules out heart failure. > or = 450 pg/ml, further investigation warranted. - Knowledge of each individual patient's NT-proBNP range may be more useful than using similar cut-points for every patient. Please note that marked elevations in NT-proBNP levels may be observed in state other than Left Ventricular Congestive Failure, including: acute coronary syndromes, right heart strain/failure (including pulmonary embolism and cor pulmonale), critical illness, renal failure, as well as advanced age. - References: 1. Gildardo AHMADI et.al. Eur Heart J. 2006:27:330-337. 2. Gary RW, Walker MACIAS. J. AM Thelma Cardiol: Cardiovasc Imag. 2009;2: 216- 225. Interpretive Data Last Revised Date: 2018. Blood 04/28/2025 12:0 7 PM CDT 04/28/2025 12:07 PM CDT Emre Camejo MD LAB BLOOD ORDERABLES Final Resul t Performing Organization Address City/[facility] Co de Phone Number ANTIONETTE PATTERSON [address] [place] [place] [address] * (ABNORMAL) CBC with auto differential (04/28/2025 12:07 PM CDT) WBC 7.34 3.80 - 9.90 K/cumm Hgb 11.3(L) 11.9 - 15.5 g/dL [facility] Hct 34.2(L) 35.6 - 45.5 % [facility] Plt 280 150 - 400 K/cumm [facility] MPV 10.4 9.1 - 12.3 fL [facility] RBC 3.79(L) 3.90 - 5.20 M/cumm [facility] MCV 90.2 81.3 - 96.4 fL [facility] MCH 29.8 27.1 - 33.3 pg C[facility]ER MCHC 33.0 32.3 - 35.7 g/dL [facility] RDW CV 15.1(H) 11.1 - 14.9 % [facility] RDW SD 49.9(H) 35.7 - 48.1 fL [facility] NRBC abs 0.00 0.00 - 0.01 K/cumm [facility] Blood 04/28/2025 12:0 7 PM CDT 04/28/2025 12:07 PM CDT Emre Camejo MD LAB BLOOD ORDERABLES Final Resul t Performing Organization Address [facility] Co de Phone Number ANTIONETTE PATTERSON [address] [place] [address] * aPTT (04/28/2025 12:07 PM CDT) aPTT 31 26 - 38 sec Comment: Interpretive Data Heparin therapeutic range: 66.0 - 100.0 seconds. Range based on correlation with therapeutic heparin activity range of 0.3 - 0.7 Units/mL. Current interpretive data was last revised on 2023. Blood 04/28/2025 12:0 7 PM CDT 04/28/2025 12:07 PM CDT Emre Camejo MD LAB BLOOD ORDERABLES Final Resul t Performing Organization Address [facility] Co de Phone Number ANTIONETTE [address] [place] [address] * Protime-INR (04/28/2025 12:07 PM CDT) PT 11.1 10.2 - 13.5 sec INR 0.98 0.90 - 1.20 ANTIONETTE PATTERSON Comment: Interpretive data Oral anticoagulant therapeutic ranges: Venous thromboembolism prophylaxis or treatment: 2.0-3.0 CARDIOLOGY Standard range: 2.0-3.0 High-intensity range: 2.5-3.5 Refer to indication-specific guidelines for appropriate target ranges for prosthetic heart valve replacement. Current interpretive data was last revised on 2019. Blood 04/28/2025 12:0 7 PM CDT 04/28/2025 12:07 PM CDT Emre Camejo MD LAB BLOOD ORDERABLES Final Resul t Performing Organization Address City/[facility]/ZIP Co de Phone Number ANTIONETTE PATTERSON [address] [place] [address] * Comprehensive metabolic panel (04/28/2025 12:07 PM CDT) Sodium 137 135 - 145 mmol/L Potassium, pl 3.9 3.3 - 4.9 mmol/L [facility] Chloride 100 97 - 110 mmol/L [facility] CO2 25 22 - 32 mmol/L [facility] Anion gap 12 2 - 15 mmol/L [facility] BUN 11 6 - 25 mg/dL [facility] Creatinine 0.71 0.60 - 1.10 mg/dL [facility] Glucose 86 70 - 199 mg/dL [facility] Comment: Interpretive Data Fasting glucose >/= 126 [...] interpretive data was last revised 2022. Calcium 9.5 8.5 - 10.3 mg/dL [facility] Bilirubin, total 0.4 0.1 - 1.2 mg/dL [facility] Protein, pl 7.2 6.5 - 8.5 g/dL [facility] Albumin 4.0 3.5 - 5.0 g/dL [facility] Alk phos 112 40 - 130 Units/L [facility] ALT 13 7 - 45 Units/L [facility] AST 25 10 - 45 Units/L [facility] Blood 04/28/2025 12:0 7 PM CDT 04/28/2025 12:07 PM CDT Emre Camejo MD LAB BLOOD ORDERABLES Final Resul t [facility] [address] Department [place] [address] * Type and screen (04/28/2025 12:00 PM CDT) Vania, indirect Negative ABO Rh O Negative [facility] Blood 04/28/2025 12:0 0 PM CDT 04/28/2025 12:07 PM CDT Narrative [facility] - 04/28/2025 12:55 PM CDT Has the patient had Daratumumab or Isatuximab in the past 6 months?->Unknown Emre Camejo MD LAB BLOOD BANK TEST ORDERABLES F inal Result Performing Organization Address City/[facility] Co de Phone Number ANTIONETTE PATTERSON [address] Department [place] [address] * ECG 12 lead (04/28/2025 11:41 AM CDT) 04/28/2025 11:4 1 AM CDT Narrative [facility] - 04/28/2025 9:06 PM CDT Vent Rate: 69 bpm RR Interval: 865 msec UT Interval: 150 msec QRS Duration: 78 msec QT Interval: 364 msec QTC Interval: 383 msec P-R-T Pathfork: 29 - 42 - 122 degrees IMPRESSION: SINUS RHYTHM WITH OCCASIONAL VENTRICULAR PREMATURE COMPLEXES POSSIBLE ANTERIOR MYOCARDIAL INFARCTION , PROBABLY OLD BORDERLINE ECG Electronically Signed By: Virgilio Lafleur MD Emre Camejo MD ECG ORDERABLES Final Result Performing Organization Address [facility] Phone Number [facility] * XR Chest PA Lateral 2 Views (04/28/2025 11:27 AM CDT) Anatomical Region Laterality Modality Body, Chest N/A Computed Radiogr aphy 04/28/2025 11:3 1 AM CDT Impressions 04/28/2025 11:31 AM CDT No failure. Electronically signed by: Elias Cordoba M.D. Narrative 04/28/2025 11:31 AM CDT EXAMINATION: XR CHEST PA LATERAL 2 VIEWS HISTORY: The patient is a 79-year-old female who has been scheduled for a TAVR procedure. TECHNIQUE: PA and lateral view of the chest. FINDINGS: Lungs clear. Heart not enlarged. Aortic atherosclerosis. No failure. Procedure Note Elias Cordoba MD - 04/28/2025 EXAMINATION: XR CHEST PA LATERAL 2 VIEWS HISTORY: The patient is a 79-year-old female who has been scheduled for a TAVR procedure. TECHNIQUE: PA and lateral view of the chest. FINDINGS: Lungs clear. Heart not enlarged. Aortic atherosclerosis. No failure. IMPRESSION: No failure. Electronically signed by: Elias Cordoba M.D. us Emre Camejo MD IMG XR PROCEDURES Final Result * US Duplex Scan of Aorta; Inferior Vena Cava, Iliac, Complete (03/27/2025 1:44 PM CDT) Anatomical Region Laterality Modality Vascular Ultrasound 03/27/2025 1:10 PM CDT Narrative 03/27/2025 3:58 PM CDT Abdominal Aortic Duplex Ultrasound Report Patient Name: LISA ALONZO L : 1945 Study Date: 03/27/2025 1:10:29 PM Gender: F [employer] Supervisor: Sarai Alegre Provider: JUAN DAVID REN Quality: [...] Study Date: 03/27/2025 1:10:29 PM Gender: F [employer] Supervisor: Sarai Alegre Provider: JUAN DAVID REN Quality: [...] Final Re sult * Pulmonary Function Test -[facility]; Complete/Full (03/21/2025 9:25 AM CDT) Anatomical Region Laterality Modality PFT Narrative 03/21/2025 4:13 PM CDT 03/21/25: normal spirometry , flow volume loop, lung volumes and oxygenation. Minimal reduction in the DLCO which normalizes in correlation to alveolar ventilation. Hui Terrazas MD [facility] us Emre Camejo MD PFT ORDERABLES Final Result [...] from annulus: 14 mm Deployment angle: 25 SURINAMESE, 0 Caudal Coronary Arteries: Coronary artery bypass [...] from annulus: 14 mm Deployment angle: 25 SURINAMESE, 0 Caudal Coronary Arteries: Coronary artery bypass [...] it. Electronically signed by: Paula Patino M.D. Emre Camejo MD [facility] CT PROCEDURES Final Result * VASCULAR ACCESS US GUIDANCE, RIGHT LEFT HEART CATHETERIZATION CORONARY GRAFT WITH WITHOUT LEFT VENTRICULOGRAPHY ANGIOGRAM, [facility] SBCLVIAN ART [id number] (03/09/2025 11:36 AM CDT) Anatomical Region Laterality [...] of remote CABG x3 in 1995 at [facility] (unknown grafts, operative report not available); aortic stenosis, infrarenal AAA status post EVAR on 01/06/2022 at [facility], hypertension, anxiety, heavy tobacco abuse. Patient has [...] TAVR workup. She was brought to the lab manager today, and had repeat focused TAVR echo performed which showed preserved LV systolic function, calcified aortic valve with restricted leaflet mobility. Severe aortic stenosis with relatively low mean gradient. V max 3.5 m/sec. Mean gradient 30 mmHg. DVI 0.25. Valve area 0.8 cm2. Mild aortic regurgitation. Patient was subsequently brought to the lab manager for coronary and bypass graft Angiography. Patient [...] groin hematoma, retroperitoneal bleed, vessel perforation; periprocedural AL, cardiac arrhythmias, stroke, contrast induced nephropathy, and . After discussing all the benefits, risks and alternatives, patient was willing to proceed with the procedure. PROCEDURES PERFORMED: Selective left and right coronary angiogram Aortogram Selective bypass graft Angiography Selective left subclavian angiogram Ultrasound-guided right common femoral access (CPT 11613) Moderate sedation-CPT code 28018 MODERATE SEDATION: Midazolam 2 mg , Fentanyl 50 mcg, start time 1041 stop time 1136, total direct [id number] monitoring of conscious sedation 55 minutes (CPT 69706) TRAINED OBSERVER: Calvin Garvin RN was trained observer for moderate sedation. ACCESS SITE: Right common femoral artery PROCEDURE: After obtaining informed consent, patient was brought to the lab manager and prepped and draped in the usual sterile manner. Time-out and immediate reassessment of the patient was performed. After local anesthesia with lidocaine, right common femoral artery access was taken with micropuncture needle under ultrasound guidance followed by insertion of a 5 Northern Irish sheath, which was later changed to 45 cm 5 Northern Irish sheath due to presence of aortoiliac graft, to facilitate coronary angiogram. Selective left coronary angiogram was performed using 5 Northern Irish JL 3.5 diagnostic catheter. RCA is known to be small nondominant from previous cardiac catheterization, and was not visualized on today's angiogram. Selective aortocoronary bypass graft Angiography was performed using 5 Northern Irish JR4 diagnostic catheter. Aortogram was performed using [...] and other findings are given below. FINDINGS: [place] CORONARY ARTERIES: LEFT CORONARY SYSTEM: There is high-grade about 90-95% stenosis in the mid -distal left main coronary artery. LAD has chronic total occlusion at its origin. Left circumflex artery is a dominant, large caliber vessel with iprfieky-sw-guxooy diffuse disease in the proximal segment. The vessel is supplied by patent SVG. Retrograde filling of the graft seen on the left coronary angiogram. RIGHT CORONARY ARTERY: Not visualized, reported to be nondominant from previous cardiac catheterization. BYPASS GRAFT ANGIOGRAPHY: SVG TO LPDA: Large caliber graft, patent, anastomosed to LPDA. There is retrograde filling of the LCX. The la posta LPA after anastomosis is a large caliber vessel without significant focal stenosis. AORTOCORONARY GRAFT: Appears to be arterial graft, patent, anastomosed to LAD, no significant focal stenosis. The la posta vessel after anastomosis is a small to medium caliber vessel. LEFT SUBCLAVIAN ARTERY: Patent LEFT VENTRICULOGRAM: not performed HEMODYNAMIC ASSESSMENT: Opening pressure 138/92 mmHg, closing pressure 147/84 mmHg. CONCLUSIONS: Severe la posta vessel CAD - About 90-95% stenosis left [...] was used to complete this document, therefore, procurement inspector variances may occur. Emre Camejo MD, [facility] 03/09/25 us Emre Camejo MD CV CARDIAC CATH PROCEDURES Edite d Result - Final * TRANSTHORACIC ECHO (TTE) LIMITED/FOLLOW UP W LTD DOPPLER/CF WO CONTRAST (03/09/2025 10:04 AM CDT) EF Mod BP 55 % CONS SCIMAGE Anatomical Region Laterality Modality Ultrasound 03/09/2025 9:48 AM CDT Narrative 03/09/2025 11:[place] [address] Limited Echocardiogram Report Patient Name: LISA ALONZO L : 1945 Study Date: 03/09/2025 9:48:55 AM Gender: F Tech: Location: [facility] Ref Provider: EMRE CAMEJO Height(Cm): 158 BSA: [...] regurgitation. Electronically Signed By: Emre Camejo MD, [facility] 03/09/2025 11:55:42 AM CDT Procedure Note Emre Camejo MD - 03/09/2025 [place] [address] Limited Echocardiogram Report Patient Name: LISA ALONZO L : 1945 Study Date: 03/09/2025 9:48:55 AM Gender: F Tech: Location: 5962 Ref Provider: EMRE CAMEJO Height(Cm): [...] regurgitation. Electronically Signed By: Emre Camejo MD, [facility] 03/09/2025 11:55:42 AM CDT us Emre Camejo MD CV ECHO PROCEDURES Final [...] 8:41 AM CDT 03/09/2025 9:03 AM CDT us Emre Camejo MD LAB BLOOD ORDERABLES Final Resul t [facility] [address] Department [place] [address] * Differential, auto (03/09/2025 8:41 AM CDT) Pathologist [facility] Neutrophil abs 4.52 1.50 - 6.50 K/cumm Imm gran abs 0.03 0.00 - 0.10 K/cumm [facility] Lymphocyte abs 2.58 0.80 - 3.30 K/cumm [facility] Monocyte abs 0.61 0.20 - 0.80 K/cumm [facility] Eosinophil abs 0.28 0.00 - 0.50 K/cumm [facility] Basophil abs 0.04 0.00 - 0.10 K/cumm [facility] Neutrophil pct 56.0 % [facility] Comment: Interpretive Data Percent cell count reference ranges are not reported, since discordance with absolute values may lead to misinterpretation of CBC data. Current Interpretive Data was last revised on 2017. Imm gran pct 0.4 % [facility] Comment: Interpretive Data Percent cell count reference ranges are not reported, since discordance with absolute values may lead to misinterpretation of CBC data. Current Interpretive Data was last revised on 2017. Lymphocyte pct 32.0 % [facility] Comment: Interpretive Data Percent cell count reference ranges are not reported, since discordance with absolute values may lead to misinterpretation of CBC data. Current Interpretive Data was last revised on 2017. Monocyte pct 7.6 % [facility] Comment: Interpretive Data Percent cell count reference ranges are not reported, since discordance with absolute values may lead to misinterpretation of CBC data. Current Interpretive Data was last revised on 2017. Eosinophil pct 3.5 % [facility] Comment: Interpretive Data Percent cell count reference ranges are not reported, since discordance with absolute values may lead to misinterpretation of CBC data. Current Interpretive Data was last revised on 2017. Basophil pct 0.5 % [facility] Comment: Interpretive Data Percent cell count reference ranges are not reported, since discordance with absolute values may lead to misinterpretation of CBC data. Current Interpretive Data was last revised on 2017. Blood 03/09/2025 8:41 AM CDT 03/09/2025 8:46 AM CDT us Emre Camejo MD LAB BLOOD ORDERABLES Final Resul t [facility] [address] Department [place] [address] * (ABNORMAL) CBC with auto differential (03/09/2025 8:41 AM CDT) WBC 8.06 3.80 - 9.90 K/cumm Hgb 12.1 11.9 - 15.5 g/dL [facility] Hct 37.5 35.6 - 45.5 % [facility] Plt 258 150 - 400 K/cumm [facility] MPV 10.7 9.1 - 12.3 fL [facility] RBC 4.06 3.90 - 5.20 M/cumm [facility] MCV 92.4 81.3 - 96.4 fL [facility] MCH 29.8 27.1 - 33.3 pg [facility] MCHC 32.3 32.3 - 35.7 g/dL [facility] RDW CV 14.1 11.1 - 14.9 % [facility] RDW SD 48.3(H) 35.7 - 48.1 fL [facility] NRBC abs 0.00 0.00 - 0.01 K/cumm [facility] Blood 03/09/2025 8:41 AM CDT 03/09/2025 8:46 AM CDT Narrative [facility] - 03/09/2025 9:15 AM CDT If most recent labs were drawn prior to 4 AM, draw only prior to initiating procedure. us Emre Camejo MD LAB BLOOD ORDERABLES Final Resul t [facility] [id number] Department [place] [address] * Basic metabolic panel (03/09/2025 8:41 AM CDT) Sodium 137 135 - 145 mmol/L Potassium, pl 4.7 3.3 - 4.9 mmol/L [facility] Chloride 100 97 - 110 mmol/L [facility] CO2 31 22 - 32 mmol/L [facility] Anion gap 6 2 - 15 mmol/L [facility] BUN 15 6 - 25 mg/dL [facility] Creatinine 0.86 0.60 - 1.10 mg/dL [facility] Glucose 91 70 - 199 mg/dL [facility] Comment: Interpretive Data Fasting glucose >/= 126 [...] 2022. Calcium 9.6 8.5 - 10.3 mg/dL [facility] Blood 03/09/2025 8:41 AM CDT 03/09/2025 8:46 AM CDT us Emre Camejo MD LAB BLOOD ORDERABLES Final Resul t [facility] [id number] Department [place] [address] from Last 3 Months Insurance [facility] MEDICARE T MEDICARE [employer] MEDICARE Advance Directives For more information, please contact: [phone] Documents on File Type Date Recorded Patient Pet Counselor Expl anation ADVANCE DIRECTIVE 01/01/2022 3:12 PM Power of Biofuels Processing Technician-Medical * Full Code (Latest Code Status on File) Date Activated Date Inactivated Comments 01/06/2022 3:05 PM 01/07/2022 6:16 PM Healthcare Agents on File Name Relationship Healthcare Agent Relationship Communication Cosme Alonzo Spouse Health Care Agent [email or web address] Mita Arciniegaler Sister First Alternate Health Care Agent Jesse Alonzo Other Second Alternate Health Care Agent Care Teams Safemaker Relationship Specialty Start Date End Date Narda Melgoza DO [address] [place] [address] PCP - General Family Medicine 02/15/25 Zion Lechuga MD Consulting Physician Cardiology 01/01/22 Juan David Ren MD [address] [facility] [address] [place] [address] Surgeon Vascular Surgery 02/27/22
== END 2025-05-25 12:37 | disposition home or self-care (01) ==
LOC: ANHFOHIMG 12:38
PROVIDERS: PCP Family Medicine Adolescent Medicine; Visit Provider Family Medicine Adolescent Medicine
DX: Z12.31 Encounter for screening mammogram for malignant neoplasm of breast (principal)
CPT/HCPCS: 77063; 77067